=== PATIENT | male | born 1950 | race Caucasian/White ===

== ENCOUNTER 2017-08-10 15:19 | Inpatient (IN) ==
--- NOTE | 2017-08-10 15:40 | Emergency Department Note ---
Disposition Clinical Impression: New onset a-fib, Urinary retention Disposition: Admitted As Inpatient Condition: Fair General Adult HPI - General Chief complaint: ED Arrhythmia/Palpitations Stated complaint: "abnormal EKG", BERNADETTE Time Seen by Provider: 08/10/17 15:33 Source: patient, family Limitations: no limitations - History of Present Illness Pain Scale: 4 - Related Data Home Medications Medication Instructions Recorded Confirmed predniSONE [PredniSONE] See Taper PO DAILY 08/10/17 08/10/17 Previous Rx's Medication Instructions Recorded Acetaminophen [Tylenol] 650 mg PO Q6HR PRN tablet 08/07/17 Aspirin Enteric Coated [Aspirin EC] 81 mg PO DAILY tablet. 08/07/17 Atorvastatin [Lipitor] 40 mg PO HS #30 tablet 08/07/17 Budesonide/Formoterol 160/4.5 2 puff IH BIDR #1 inhaler 08/07/17 [Symbicort 160/4.5] Ferrous Sulfate 325 mg PO DAILY@0800 #30 tablet 08/07/17 Furosemide [Lasix] 20 mg PO DAILY #10 tablet 08/07/17 Ipratropium/Albuterol Neb [Duoneb] 3 ml IH [id number] 30 Days #150 inhsol 08/07/17 Levofloxacin [Levaquin] 750 mg PO DAILY #5 tablet 08/07/17 Lisinopril [Zestril] 5 mg PO DAILY #30 tablet 08/07/17 Melatonin 6 mg PO HS PRN #30 tablet 08/07/17 Metoprolol XL (24 HR) Succ [Toprol 25 mg PO DAILY #30 tab.er.24h 08/07/17 Xl] Allergies Allergy/AdvReac Type Severity Reaction Status Date / Time No Known Allergies Allergy Verified 07/29/17 12:54 Past Medical History - Past Medical History Medical history: Reports: CHF, COPD, hyperlipidemia, other Surgical history: Reports: other (lymph node biopsy 2004) Psychiatric history: Reports: no psych history - Social History Smoking Status: Former smoker Smokeless Tobacco Status: No Alcohol use: Reports: rarely Drug use: Reports: none Physical Exam - General Limitations: no limitations General appearance: alert Course Vital Signs Temperature 97.5 F L 08/10/17 15:22 Pulse Rate 125 08/10/17 15:22 Respiratory Rate 20 08/10/17 15:22 Blood Pressure 122/61 08/10/17 15:22 O2 Sat by Pulse Oximetry 95 08/10/17 15:22 Temperature 97.4 F L 08/10/17 23:56 Pulse Rate 102 08/10/17 23:56 Respiratory Rate 14 08/11/17 00:03 Blood Pressure 112/92 08/10/17 23:56 O2 Sat by Pulse Oximetry 94 08/11/17 00:03 Oxygen Delivery Oxygen Delivery Nasal Cannula Medical Decision Making - Lab Data Result diagrams: 08/10/17 15:42 08/10/17 15:42 Lab Results 08/10/17 08/10/17 08/10/17 Range/Units 15:42 15:42 15:42 WBC 12.6 H (4.3-11.1) K/mcL RBC 5.72 H (4.19-5.50) M/mcL Hgb 14.2 D (12.9-16.9) g/dL Hct 44.3 (37.5-50.1) % MCV 77.4 L (83.0-100.0) fL MCH 24.8 L (28.0-33.3) pg MCHC 32.1 (31.6-35.5) g/dL RDW 17.2 H (11.5-14.5) % Plt Count 163 (140-400) K/mcL MPV 10.2 (9.4-12.4) fL Immature Gran % 0.9 (0-4) % Seg Neutrophils % 92.4 % Lymphocytes % 1.7 % Monocytes % 4.7 % Eosinophils % 0.1 % Basophils % 0.2 % Neutrophils # 11.7 H (1.6-8.9) K/mcL Lymphocytes # 0.2 L (0.6-4.6) K/mcL Monocytes # 0.6 (0.0-1.3) K/mcL Eosinophils # 0.0 (0.0-0.6) K/mcL Basophils # 0.0 (0.0-0.2) K/mcL PT 11.1 (9.4-12.1) Seconds INR 1.0 APTT 22.5 L (26.0-36.0) Seconds Sodium 130 L (136-145) mEq/L Potassium 5.1 (3.5-5.1) mEq/L Chloride 96 L (98-107) mEq/L Carbon Dioxide 27 (23-29) mEq/L BUN 48 H (8-23) mg/dL Creatinine 1.12 (0.70-1.30) mg/dL Est GFR ( Amer) > 60 (> 60) Est GFR (Non-Af Amer) > 60 (> 60) BUN/Creatinine Ratio 43 H (6-26) Glucose 111 H (70-105) mg/dL Calculated Osmolality 283 (280-300) Calcium 8.8 (8.6-10.3) mg/dL Magnesium 2.2 (1.6-2.6) mg/dL Troponin I (< 0.04) ng/mL B-Natriuretic Peptide (Less than 100) pg/mL TSH 1.539 (0.340-5.600) mcIU/mL 08/10/17 08/10/17 08/10/17 Range/Units 15:42 15:42 18:39 WBC (4.3-11.1) K/mcL RBC (4.19-5.50) M/mcL Hgb (12.9-16.9) g/dL Hct (37.5-50.1) % MCV (83.0-100.0) fL MCH (28.0-33.3) pg MCHC (31.6-35.5) g/dL RDW (11.5-14.5) % Plt Count (140-400) K/mcL MPV (9.4-12.4) fL Immature Gran % (0-4) % Seg Neutrophils % % Lymphocytes % % Monocytes % % Eosinophils % % Basophils % % Neutrophils # (1.6-8.9) K/mcL Lymphocytes # (0.6-4.6) K/mcL Monocytes # (0.0-1.3) K/mcL Eosinophils # (0.0-0.6) K/mcL Basophils # (0.0-0.2) K/mcL PT (9.4-12.1) Seconds INR APTT (26.0-36.0) Seconds Sodium (136-145) mEq/L Potassium (3.5-5.1) mEq/L Chloride (98-107) mEq/L Carbon Dioxide (23-29) mEq/L BUN (8-23) mg/dL Creatinine (0.70-1.30) mg/dL Est GFR ( Amer) (> 60) Est GFR (Non-Af Amer) (> 60) BUN/Creatinine Ratio (6-26) Glucose (70-105) mg/dL Calculated Osmolality (280-300) Calcium (8.6-10.3) mg/dL Magnesium (1.6-2.6) mg/dL Troponin I 0.05 H* 0.04 H* (< 0.04) ng/mL B-Natriuretic Peptide 964 H (Less than 100) pg/mL TSH (0.340-5.600) mcIU/mL Critical Care Time Critical Care Time: Yes Total Critical Care Time: 30 Attestation: The high probability of a clinically significant, sudden or life threatening deterioration of the [] system(s) required my full and direct attention, intervention and personal management. The aggregate critical care time was [] minutes. This time is in addition to time spent performing reported procedures but includes the following: [] Data Review and interpretation [] Patient assessment and monitoring of vital signs [] Documentation [] Medication orders and management Attestation Statement - Attestation Attestation: I examined this patient and my medical decision-making was reviewed with the Resident Physician. I agree with the documented findings, disposition and treatment plan as described except to the extent set forth below. Face to face time provided Patient arrives with a narrow complex irregularly irregular tachycardia. He has no previous history of atrial fibrillation. Takes aspirin. Was recently admitted for COPD exacerbation. Past peripheral edema on exam. ECG reviewed by me.
[2017-08-10 16:16] LABS: Basophils % 0.2 %; Eosinophils % 0.1 %; Hematocrit 44.3 % (37.5-50.1); Immature Granulocytes % 0.9 % (0-4); Lymphocytes # 0.2 K/mcL (0.6-4.6); Lymphocytes % 1.7 %; Mean Corpuscular HGB Conc 32.1 g/dL (31.6-35.5); Mean Corpuscular Hemoglobin 24.8 pg (28.0-33.3); Mean Corpuscular Volume 77.4 fL (83.0-100.0); Mean Platelet Volume 10.2 fL (9.4-12.4); Monocytes # 0.6 K/mcL (0.0-1.3); Monocytes % 4.7 %; Neutrophils # 11.7 K/mcL (1.6-8.9); Platelet Count 163 K/mcL (140-400); Red Blood Count 5.72 M/mcL (4.19-5.50); Red Cell Distribution Width 17.2 % (11.5-14.5); Segmented Neutrophils % 92.4 %
[2017-08-10 16:20] LABS: Hemoglobin 14.2 g/dL (12.9-16.9)
[2017-08-10 16:22] LABS: Prothrombin Time 11.1 Seconds (9.4-12.1)
[2017-08-10 16:25] LABS: Activated Partial Thrombo Time 22.5 Seconds (26.0-36.0)
[2017-08-10 16:33] LABS: Thyroid Stimulating Hormone 1.539 mcIU/mL (0.340-5.600)
[2017-08-10 17:23] LABS: BUN/Creatinine Ratio 43 (6-26); Blood Urea Nitrogen 48 mg/dL (8-23); Calcium 8.8 mg/dL (8.6-10.3); Carbon Dioxide 27 mEq/L (23-29); Chloride 96 mEq/L (98-107); Glucose 111 mg/dL (70-105); Magnesium 2.2 mg/dL (1.6-2.6); Osmolality,Calculated 283 (280-300); Potassium 5.1 mEq/L (3.5-5.1); Sodium 130 mEq/L (136-145); eGFR For African Americans > 60 (> 60); eGFR For Non-African Americans > 60 (> 60)
--- NOTE | 2017-08-10 17:37 | Emergency Department Note ---
Disposition Clinical Impression: New onset a-fib, Urinary retention Disposition: Admitted As Inpatient Condition: Fair Referrals: Jenn Luna MD [Primary Care Provider] - Forms: ED Satisfaction Letter Time of Disposition: 17:56 General Adult HPI - General Chief complaint: ED Arrhythmia/Palpitations Stated complaint: "abnormal EKG", BERNADETTE Time Seen by Provider: 08/10/17 15:33 Source: patient, family Mode of arrival: ambulatory Limitations: no limitations Nursing Notes Reviewed: Yes Vital Signs Reviewed: Yes - History of Present Illness HPI Narrative: 61 yo male with known past medical history of COPD presenting to the emergency department with chief complaint of abnormal EKG. Patient was discharged from the hospital 2 days ago for COPD exacerbation. He was started on Levaquin as an outpatient. Today he went to his primary care physician for routine hospital follow-up. He was complaining of chest pain and retaining fluid that started last evening. When they completed an EKG they noticed it was atrial fibrillation and sent him to the emergency department for further workup. Patient has not no known history of palpitations or atrial fibrillation. He states he started feeling mild chest pain last evening. He also noticed for the past week increased food retention. He was started on 20 mg of Lasix at discharge but has not been urinating often. He states he has only urinated twice today. Patient denies any pain at this time. He does state when he lays down his shortness of breath worsens. Denies any fever at home. Pain Scale: 4 - Related Data Home Medications Medication Instructions Recorded Confirmed predniSONE [PredniSONE] See Taper PO DAILY 08/10/17 08/10/17 Previous Rx's Medication Instructions Recorded Acetaminophen [Tylenol] 650 mg PO Q6HR PRN tablet 08/07/17 Aspirin Enteric Coated [Aspirin EC] 81 mg PO DAILY tablet. 08/07/17 Atorvastatin [Lipitor] 40 mg PO HS #30 tablet 08/07/17 Budesonide/Formoterol 160/4.5 2 puff IH BIDR #1 inhaler 08/07/17 [Symbicort 160/4.5] Ferrous Sulfate 325 mg PO DAILY@0800 #30 tablet 08/07/17 Furosemide [Lasix] 20 mg PO DAILY #10 tablet 08/07/17 Ipratropium/Albuterol Neb [Duoneb] 3 ml IH [id number] 30 Days #150 inhsol 08/07/17 Levofloxacin [Levaquin] 750 mg PO DAILY #5 tablet 08/07/17 Lisinopril [Zestril] 5 mg PO DAILY #30 tablet 08/07/17 Melatonin 6 mg PO HS PRN #30 tablet 08/07/17 Metoprolol XL (24 HR) Succ [Toprol 25 mg PO DAILY #30 tab.er.24h 08/07/17 Xl] Allergies Allergy/AdvReac Type Severity Reaction Status Date / Time No Known Allergies Allergy Verified 07/29/17 12:54 All systems ED: reviewed and negative except as stated. Constitutional: Reports: weight change (increased) Cardiovascular: Reports: chest pain, palpitations, dyspnea on exertion Respiratory: Reports: dyspnea Past Medical History - Past Medical History Attestation: Yes The following information was validated with the patient. Medical history: Reports: CHF, COPD, hyperlipidemia, other Surgical history: Reports: other (lymph node biopsy 2004) Psychiatric history: Reports: no psych history - Social History Smoking Status: Former smoker Smokeless Tobacco Status: No Alcohol use: Reports: rarely Drug use: Reports: none Physical Exam - General Limitations: no limitations General appearance: alert, in no apparent distress - Head Head exam: atraumatic, normocephalic, normal inspection - Eye Eye exam: Present: normal appearance. Absent: scleral icterus, conjunctival injection - Neck Neck exam: Present: normal inspection, full ROM. Absent: tenderness, meningismus - Chest Chest inspection: Present: normal inspection, symmetric chest wall rise. Absent : tenderness, rash - Respiratory Respiratory exam: Present: other (Decreased breath sounds bilaterally) - Cardiovascular Cardiovascular exam: Present: tachycardia, irregular rhythm - Abdominal Exam Abdominal exam: Present: soft, Non-Tender. Absent: distention, guarding, rebound - Extremities Exam Extremities exam: Present: full ROM, other (Lower extremity 1+ pitting edema) - Neurological Exam Neurological exam: Present: alert, oriented X3 - Psychiatric Psychiatric exam: Present: normal affect, normal mood - Skin Skin exam: Present: warm, dry Course Course Narrative: 67-year-old male with known history of COPD presenting to the emergency department with chief complaint of new onset atrial fibrillation. EKG here does show atrial fibrillation. Also retaining fluid in the lower extremities. Concern for CHF. Patient has no known history of CHF. Patient is alert and oriented 3 in the room with tachycardia but otherwise stable vital signs. We will perform basic laboratory workup including EKG and chest x-ray. We will also provide the patient with a bolus and drip of Cardizem. Patient agrees to this plan. We will plan to admit the patient for new onset atrial fibrillation. - Reevaluation(s) Reevaluation #1: Cardizem bolus given to patient. Became mildly hypotensive with systolic in the upper 80s. We will hold the drip at this time as he is rate controlled. Patient denies any chest pain shortness of breath or other symptoms at this time. He is alert and oriented 3 and room stable vital signs at this time. Awaiting laboratory analysis but plan to admit patient for new onset atrial fibrillation. He agrees to this plan. Reevaluation #2: Bedside ultrasound showed urinary retention of approximately [address] We will place a Miles and the patient at this time and provide him with 20 mg of IV Lasix. I spoke with the accepting hospitalist Pineda Aguilera is a 6 at the patient at this time. He would like us to consult cardiology. I spoke with Dr. Edwards with cardiology. He is aware of the case. He is alert and oriented 3 and room stable vital signs at this time. Vital Signs Temperature 97.5 F L 08/10/17 15:22 Pulse Rate 125 08/10/17 15:22 Respiratory Rate 20 08/10/17 15:22 Blood Pressure 122/61 08/10/17 15:22 O2 Sat by Pulse Oximetry 95 08/10/17 15:22 Temperature 97.5 F L 08/10/17 15:22 Pulse Rate 86 08/10/17 17:37 Respiratory Rate 18 08/10/17 17:37 Blood Pressure 126/103 08/10/17 17:37 O2 Sat by Pulse Oximetry 96 08/10/17 17:37 Oxygen Delivery Oxygen Delivery Nasal Cannula Medical Decision Making - Lab Data Result diagrams: 08/10/17 15:42 08/10/17 15:42 Lab Results 08/10/17 08/10/17 08/10/17 Range/Units 15:42 15:42 15:42 WBC 12.6 H (4.3-11.1) K/mcL RBC 5.72 H (4.19-5.50) M/mcL Hgb 14.2 D (12.9-16.9) g/dL Hct 44.3 (37.5-50.1) % MCV 77.4 L (83.0-100.0) fL MCH 24.8 L (28.0-33.3) pg MCHC 32.1 (31.6-35.5) g/dL RDW 17.2 H (11.5-14.5) % Plt Count 163 (140-400) K/mcL MPV 10.2 (9.4-12.4) fL Immature Gran % 0.9 (0-4) % Seg Neutrophils % 92.4 % Lymphocytes % 1.7 % Monocytes % 4.7 % Eosinophils % 0.1 % Basophils % 0.2 % Neutrophils # 11.7 H (1.6-8.9) K/mcL Lymphocytes # 0.2 L (0.6-4.6) K/mcL Monocytes # 0.6 (0.0-1.3) K/mcL Eosinophils # 0.0 (0.0-0.6) K/mcL Basophils # 0.0 (0.0-0.2) K/mcL PT 11.1 (9.4-12.1) Seconds INR 1.0 APTT 22.5 L (26.0-36.0) Seconds Sodium 130 L (136-145) mEq/L Potassium 5.1 (3.5-5.1) mEq/L Chloride 96 L (98-107) mEq/L Carbon Dioxide 27 (23-29) mEq/L BUN 48 H (8-23) mg/dL Creatinine 1.12 (0.70-1.30) mg/dL Est GFR ( Amer) > 60 (> 60) Est GFR (Non-Af Amer) > 60 (> 60) BUN/Creatinine Ratio 43 H (6-26) Glucose 111 H (70-105) mg/dL Calculated Osmolality 283 (280-300) Calcium 8.8 (8.6-10.3) mg/dL Magnesium 2.2 (1.6-2.6) mg/dL Troponin I (< 0.04) ng/mL TSH 1.539 (0.340-5.600) mcIU/mL 08/10/17 Range/Units 15:42 WBC (4.3-11.1) K/mcL RBC (4.19-5.50) M/mcL Hgb (12.9-16.9) g/dL Hct (37.5-50.1) % MCV (83.0-100.0) fL MCH (28.0-33.3) pg MCHC (31.6-35.5) g/dL RDW (11.5-14.5) % Plt Count (140-400) K/mcL MPV (9.4-12.4) fL Immature Gran % (0-4) % Seg Neutrophils % % Lymphocytes % % Monocytes % % Eosinophils % % Basophils % % Neutrophils # (1.6-8.9) K/mcL Lymphocytes # (0.6-4.6) K/mcL Monocytes # (0.0-1.3) K/mcL Eosinophils # (0.0-0.6) K/mcL Basophils # (0.0-0.2) K/mcL PT (9.4-12.1) Seconds INR APTT (26.0-36.0) Seconds Sodium (136-145) mEq/L Potassium (3.5-5.1) mEq/L Chloride (98-107) mEq/L Carbon Dioxide (23-29) mEq/L BUN (8-23) mg/dL Creatinine (0.70-1.30) mg/dL Est GFR ( Amer) (> 60) Est GFR (Non-Af Amer) (> 60) BUN/Creatinine Ratio (6-26) Glucose (70-105) mg/dL Calculated Osmolality (280-300) Calcium (8.6-10.3) mg/dL Magnesium (1.6-2.6) mg/dL Troponin I 0.05 H* (< 0.04) ng/mL TSH (0.340-5.600) mcIU/mL - EKG Data EKG #1 EKG attestation: Yes I reviewed and interpreted this EKG. EKG results narrative: Atrial fibrillation with RVR. 121 bpm. Right axis deviation. QRS 77, QTC 361. No signs of acute ST segment elevation or ischemia noted.
[2017-08-10] MEDS ORDERED: Furosemide 20 MG/2 ML VIAL IVP ONE (17:41)
[2017-08-10] MEDS ORDERED: *HR* FentaNYL (PF) 100 MCG/2 ML VIAL IVP ONE (17:51)
--- NOTE | 2017-08-10 18:22 | Internal Med History&Physical ---
Date of Encounter: 08/10/17 Time of Encounter: 18:18 Assessment and Plan (1) New onset a-fib Current visit: Yes Status: Acute New onset atrial fibrillation consult cardiology (2) Urinary retention Current visit: Yes Status: Acute Urinary retention Miles is placed may need urology evaluation (3) COPD exacerbation Current visit: No Status: Acute COPD with no active wheezing has decreased breath sound bilaterally (4) Cardiomyopathy Current visit: No Status: Acute , cardioMyopathy with decompensation has congestive heart failure leg edema Qualifiers: Cardiomyopathy type: unspecified Qualified Code(s): I42.9 - Cardiomyopathy , unspecified (5) Elevated troponin I level Current visit: No Status: Acute Elevated troponin had a recent nuclear stress test done last week which showed no ischemia with EF 45% (6) Tobacco abuse Current visit: No Status: Chronic (7) Anemia Current visit: No Status: Chronic Chronic hemoglobin is normal at present Qualifiers: Anemia type: iron deficiency Iron deficiency anemia type: unspecified iron deficiency Qualified Code(s): D50.9 - Iron deficiency anemia, unspecified (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 Lowry is a 67 year old male Patient with history of chronic iron deficiency anemia, COPD, chronic silicosis , sarcoidosis, CMP EF 45%, smoking history, patient was recently admitted and discharged 2 days ago . Saw his primary physician today has some complaint of chest pain and fluid retention EKG done in the office showed atrial fibrillation with RVR patient was then sent to the emergency room. Emergency room atrial fib started on Cardizem drip. Patient is now heart rate in the 90s chest pain resolved. Also has some leg edema. Urinary retention ultrasound of the bladder shows 300 mL Miles is placed patient be admitted I will consult cardiology has mildly elevated troponin. Of note patient had a recent nuclear stress test August 04 last week which showed EF 45% with negative ischemia Past Med Surg Social Fam HX - Past Medical History Medical history: CHF, COPD, hyperlipidemia, other Psychiatric history: no psych history - Past Surgical History Surgical History: other (lymph node biopsy 2004) - Social History Smoking Status: Former smoker Smokeless Tobacco Status: No Alcohol use: rarely Drug use: none Internal Medicine - H&P: Meds Acetaminophen [Tylenol] 650 mg PO Q6HR PRN tablet 08/07/17 [Rx] Aspirin Enteric Coated [Aspirin EC] 81 mg PO DAILY tablet. 08/07/17 [Rx] Atorvastatin [Lipitor] 40 mg PO HS #30 tablet 08/07/17 [Rx] Budesonide/Formoterol 160/4.5 [Symbicort 160/4.5] 2 puff IH BIDR #1 inhaler [Rx] Ferrous Sulfate 325 mg PO DAILY@0800 #30 tablet 08/07/17 [Rx] Furosemide [Lasix] 20 mg PO DAILY #10 tablet 08/07/17 [Rx] Ipratropium/Albuterol Neb [Duoneb] 3 ml IH [id number] 30 Days #150 inhsol 08/07/17 [Rx] Levofloxacin [Levaquin] 750 mg PO DAILY #5 tablet 08/07/17 [Rx] Lisinopril [Zestril] 5 mg PO DAILY #30 tablet 08/07/17 [Rx] Melatonin 6 mg PO HS PRN #30 tablet 08/07/17 [Rx] Metoprolol XL (24 HR) Succ [Toprol Xl] 25 mg PO DAILY #30 tab.er.24h 08/07/17 [ Rx] predniSONE [PredniSONE] See Taper PO DAILY 08/10/17 [History] 3 Allergy/AdvReac Type Severity Reaction Status Date / Time No Known Allergies Allergy Verified 07/29/17 12:54 All Systems PM: A 10-system review of systems was performed and is negative for pertinent findings except as documented above in the HPI. - Constitutional Constitutional: fatigue, lethargy - EENT Eyes: no change in vision, no discharge, no pain, no photophobia Ears: no ear discharge, no ear pain, no tinnitus Nose, mouth and throat: no dysphagia, no nasal discharge, no neck pain, no sore throat - Cardiovascular Cardiovascular ROS IM: chest pain, dyspnea, dyspnea on exertion - Respiratory Respiratory: dyspnea, dyspnea on exertion - Gastrointestinal Gastrointestinal: no abdominal pain, no diarrhea, no hematemesis, no hematochezia, no melena, no nausea, no vomiting - Musculoskeletal Musculoskeletal ROS IM: no numbness, no tingling - Integumentary Integumentary IM: no rash, no unusual bruising - Constitutional Vitals: Temp Pulse Resp BP Pulse Ox 97.5 F L 86 18 126/103 96 08/10/17 15:22 08/10/17 17:37 08/10/17 17:37 08/10/17 17:37 08/10/17 17:37 General appearance: Present: mild distress - Eye Eye exam: Present: PERRL, conjuntiva pink, sclera anicteric Pupils: Present: PERRL - Neck Neck exam general surgery: Present: supple, trachea midline. Absent: lymphadenopathy - Respiratory Respiratory exam: Present: prolonged expiratory phase, rhonchi - Cardiovascular Cardiovascular exam: Present: irregular rhythm, +S1, +S2, systolic murmur - GI/Abdominal GI/Abdominal exam: Present: normal bowel sounds, soft, no peritoneal signs. Absent: distended, tenderness - Extremities Exam Extremities exam: Present: pedal edema Internal Med - H&P Results - Labs CBC & Chem 7: 08/10/17 15:42 08/10/17 15:42 Labs: Short CBC 08/10/17 Range/Units 15:42 WBC 12.6 H (4.3-11.1) K/mcL Hgb 14.2 D (12.9-16.9) g/dL Hct 44.3 (37.5-50.1) % Plt Count 163 (140-400) K/mcL Neutrophils # 11.7 H (1.6-8.9) K/mcL BMP 08/10/17 15:42 Sodium 130 L Potassium 5.1 Chloride 96 L Carbon Dioxide 27 BUN 48 H Creatinine 1.12 Glucose 111 H Calcium 8.8 Cardiac Enzymes 08/10/17 Range/Units 15:42 Troponin I 0.05 H* (< 0.04) ng/mL - Impressions ITS Impressions Chest X-Ray 08/10/17 15:38 IMPRESSION: Possible new consolidation in the right lower lobe. RECOMMENDATION: Consider dedicated PA and lateral chest radiographs. D/ / 08/10/2017 17:17:43 Ted Ellington MD / liam Interpreting Provider: Ted Ellington MD
[2017-08-10] MEDS ORDERED: Naloxone 0.4 MG/ML INJ IVP PRN (18:27)
[2017-08-10] MEDS ORDERED: traMADol 50 MG TABLET PO PRN (18:27)
[2017-08-10] MEDS ORDERED: Acetaminophen 325 MG TABLET PO PRN (18:30)
[2017-08-10] MEDS ORDERED: *HR* Digoxin 0.5 MG/2 ML AMPUL IVP ONE (18:33)
[2017-08-10] MEDS: Ipratropium/Albuterol Neb 3 ML IH SCH (21:22)
[2017-08-10] MEDS: Budesonide/Formoterol 160/4.5 MDI IH SCH (21:22)
[2017-08-10] MEDS: Furosemide 40 MG/4 ML VIAL IVP SCH (23:30)
[2017-08-10] MEDS: Apixaban 5 MG TABLET PO SCH (23:30)
[2017-08-10] MEDS: Melatonin 3 MG TABLET PO PRN (23:30)
[2017-08-11] MEDS: Ipratropium/Albuterol Neb 3 ML IH SCH ×7 (00:01→23:25)
[2017-08-11 00:48] LABS: Basophils % 0.1 %; Hematocrit 43.3 % (37.5-50.1); Hemoglobin 13.6 g/dL (12.9-16.9); Immature Granulocytes % 0.9 % (0-4); Lymphocytes # 0.3 K/mcL (0.6-4.6); Lymphocytes % 2.5 %; Mean Corpuscular HGB Conc 31.4 g/dL (31.6-35.5); Mean Corpuscular Hemoglobin 24.5 pg (28.0-33.3); Mean Corpuscular Volume 78.2 fL (83.0-100.0); Mean Platelet Volume 9.9 fL (9.4-12.4); Monocytes # 1.3 K/mcL (0.0-1.3); Monocytes % 10.3 %; Neutrophils # 10.5 K/mcL (1.6-8.9); Platelet Count 173 K/mcL (140-400); Red Blood Count 5.54 M/mcL (4.19-5.50); Red Cell Distribution Width 16.2 % (11.5-14.5); Segmented Neutrophils % 86.2 %
[2017-08-11 01:17] LABS: Albumin/Globulin Ratio 1.4 (1.1-2.2); Bilirubin,Total 0.8 mg/dL (0.3-1.0); Calcium 8.7 mg/dL (8.6-10.3); Globulin 2.1 g/dL (2.4-3.5); Magnesium 2.2 mg/dL (1.6-2.6); Potassium 4.7 mEq/L (3.5-5.1); Total Protein 5.1 g/dL (6.4-8.9)
[2017-08-11] MEDS ORDERED: *HR* Enoxaparin 40 MG/0.4 ML SYRINGE SQ SCH (06:00)
[2017-08-11] MEDS ORDERED: *HR* Digoxin 0.5 MG/2 ML AMPUL IVP ONE ×2 (07:46→17:46)
--- NOTE | 2017-08-11 07:49 | Internal Med Progress Note ---
Date of Encounter: 08/11/17 Time of Encounter: 07:47 - Assessment and plan (1) New onset a-fib Current Visit: Yes Status: Acute Assessment and plan: new onset atrial fib cardiology consult pending will give additional dose of digoxin 0.25 mg iv now (2) Urinary retention Current Visit: Yes Status: Acute Assessment and plan: has diaz in place urology consult pending (3) COPD exacerbation Current Visit: No Status: Acute Assessment and plan: no active wheezing continue current RX (4) Cardiomyopathy Current Visit: No Status: Acute Assessment and plan: with decompensation due to atrial fib continue iv lasix Qualifiers: Cardiomyopathy type: unspecified Qualified Code(s): I42.9 - Cardiomyopathy , unspecified (5) Elevated troponin I level Current Visit: No Status: Acute Assessment and plan: not consistent with NSTEMI level is flat (6) Tobacco abuse Current Visit: No Status: Chronic Assessment and plan: chronic (7) Anemia Current Visit: No Status: Chronic Qualifiers: Anemia type: iron deficiency Iron deficiency anemia type: unspecified iron deficiency Qualified Code(s): D50.9 - Iron deficiency anemia, unspecified (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 Assessment and plan: chronic (9) Sarcoidosis Current Visit: No Status: Chronic Assessment and plan: chronic not on steroids - Subjective Interval history: Patient admitted with new onset atrial fib rate is now better controlled no chest pain - Constitutional Vitals: Temp Pulse Resp BP Pulse Ox 98.1 F 96 15 102/74 94 08/11/17 06:55 08/11/17 06:55 08/11/17 06:55 08/11/17 06:55 08/11/17 06:55 General appearance: Present: mild distress - Eye Eye exam: Present: PERRL, conjuntiva pink, sclera anicteric Pupils: Present: PERRL - Neck Neck exam general surgery: Present: supple, trachea midline. Absent: lymphadenopathy - Respiratory Respiratory exam: Present: prolonged expiratory phase, rhonchi - Cardiovascular Cardiovascular exam: Present: irregular rhythm, systolic murmur - GI/Abdominal GI/Abdominal exam: Present: normal bowel sounds, soft, no peritoneal signs. Absent: distended, tenderness Internal Medicine: Result - Labs CBC & Chem 7: 08/11/17 00:31 08/11/17 00:31 Labs: Short CBC 08/11/17 Range/Units 00:31 WBC 12.2 H (4.3-11.1) K/mcL Hgb 13.6 (12.9-16.9) g/dL Hct 43.3 (37.5-50.1) % Plt Count 173 (140-400) K/mcL Neutrophils # 10.5 H (1.6-8.9) K/mcL BMP 08/11/17 00:31 Sodium 131 L Potassium 4.7 Chloride 92 L Carbon Dioxide 34 H BUN 55 H Creatinine 1.46 H Glucose 128 H Calcium 8.7 Cardiac Enzymes 08/11/17 Range/Units 00:31 Troponin I 0.05 H* (< 0.04) ng/mL Liver Function 08/11/17 Range/Units 00:31 Total Bilirubin 0.8 (0.3-1.0) mg/dL AST 21 (13-39) Units/L ALT 42 (7-52) Units/L Alkaline Phosphatase 45 (34-104) Units/L Albumin 3.0 L (3.5-5.7) g/dL - ABG Interpretation ABG results: PT/INR, D-dimer PT 11.1 Seconds (9.4-12.1) 08/10/17 15:42 Consult Discharge Plan - Plan Referrals: Jenn Luna MD [Primary Care Provider] -
[2017-08-11] MEDS: Apixaban 5 MG TABLET PO SCH ×2 (08:24→20:06)
[2017-08-11] MEDS: Furosemide 40 MG/4 ML VIAL IVP SCH ×2 (08:24→20:05)
[2017-08-11] MEDS: Aspirin Enteric Coated 81 MG Tablet PO SCH (08:24)
[2017-08-11] MEDS: levoFLOXacin 750 MG TABLET PO SCH (08:24)
--- NOTE | 2017-08-11 09:21 | Cardiology Consult Note ---
<Carlos Pierre - Last Filed: 08/11/17 09:19> Date of Encounter: 08/11/17 Time of Encounter: 09:19 Assessment and Plan (1) New onset a-fib Current Visit: Yes Status: Acute New onset afib. No previous history of afib. Patient was discharged with holter monitor last visit due to high risk for arrhythmias in the setting of sarcoidosis. Holter results pending. Continue toprol XL and increase as tolerated. HR 80-100 this morning. Started on eliquis by primary team. Lovenox stopped. (2) Acute on chronic systolic CHF (congestive heart failure) Current Visit: Yes Status: Acute Recently found to have mildly reduced EF. TTE 08/02/17- LVEF 45%. Mild LV systolic dysfunction. Possible regional variations although image quality is not optimal. Indeterminate diastolic function. Normal right ventricular structure and function. Aortic valve leaflet morphology not well visualized. Possibly a congenitally abnormal valve. Moderate aortic regurgitation. Mild mitral regurgitation. Mild-moderate tricuspid regurgitation. Moderate pulmonary hypertension. Ascending aorta not well visualized. No prior echo for comparison. Known sarcoidosis. Out-pt MRI recommended at last visit. Stress test completed at last visit for ischemic evaluation for new CMP. Stress test was negative for ischemia. Fluid overload on exam. Agree with IV lasix. Strict I&O and daily weights. CHF education. Continue toprol XL and zestril. CXR shows new RLL lung consolidation. Consider PNA- will defer to hospitlist. (3) Acute exacerbation of chronic obstructive airways disease Current Visit: No Status: Acute Hospitalist following. (4) Elevated troponin I level Current Visit: No Status: Acute Mild troponin elevation likely secondary to demand ischemia from atrial fibrillation with RVR and acute CHF. Discussion w patient/family: The assessment and plan as outlined above was discussed with the patient and/or family members who expressed understanding and agreement. All questions were answered. Thank you for involving us in the care of your patient. Please call with any questions. History of Present Illness Consult date: 08/11/17 Requesting physician: Denys Ford Consult reason: New onset afib Chief complaint: Increasing SOB History of present illness: Mr. Lowry is a 67 year old male with relevant past medical history of recently diagnosed cardiomyopathy, COPD, tobacco abuse, sarcoidosis, O2 dependent at home. He presents with increasing SOB and elevated heart rates. He was recently seen and discharged 08/07/17 after being treated for acute CHF and COPD. He is found to have new onset atrial fibrillation with RVR in the setting of COPD exacerbation. He was given IV digoxin x1 and cardizem bolus and started on cardizem gtt. He was also started on eliquis by primary team for AC. Cardizem gtt started. He states that he did not feel better after leaving the hospital last week. He developed increasing BLE edema. Past Med Surg Social Fam HX - Past Medical History Medical history: CHF, COPD, hyperlipidemia, other Psychiatric history: no psych history - Past Surgical History Surgical History: other (lymph node biopsy 2004) - Social History Smoking Status: Former smoker Smokeless Tobacco Status: No Alcohol use: rarely Drug use: none Medications and Allergies Acetaminophen [Tylenol] 650 mg PO Q6HR PRN tablet 08/07/17 [Rx] Aspirin Enteric Coated [Aspirin EC] 81 mg PO DAILY tablet. 08/07/17 [Rx] Atorvastatin [Lipitor] 40 mg PO HS #30 tablet 08/07/17 [Rx] Budesonide/Formoterol 160/4.5 [Symbicort 160/4.5] 2 puff IH BIDR #1 inhaler [Rx] Ferrous Sulfate 325 mg PO DAILY@0800 #30 tablet 08/07/17 [Rx] Furosemide [Lasix] 20 mg PO DAILY #10 tablet 08/07/17 [Rx] Ipratropium/Albuterol Neb [Duoneb] 3 ml IH [id number] 30 Days #150 inhsol 08/07/17 [Rx] Levofloxacin [Levaquin] 750 mg PO DAILY #5 tablet 08/07/17 [Rx] Lisinopril [Zestril] 5 mg PO DAILY #30 tablet 08/07/17 [Rx] Melatonin 6 mg PO HS PRN #30 tablet 08/07/17 [Rx] Metoprolol XL (24 HR) Succ [Toprol Xl] 25 mg PO DAILY #30 tab.er.24h 08/07/17 [ Rx] predniSONE [PredniSONE] See Taper PO DAILY 08/10/17 [History] 3 Allergy/AdvReac Type Severity Reaction Status Date / Time No Known Allergies Allergy Verified 07/29/17 12:54 All Systems Review: The remainder of the systems were reviewed and are negative Physical Examination Vital Signs, Last 4 Hours Temp Pulse Resp BP Pulse Ox 08/11/17 06:55 98.1 F 96 15 102/74 94 08/11/17 05:33 98.2 F 110 18 112/75 95 General: Conversant, No Apparent Distress HEENT: Atraumatic, Normocephaly, Mucus Membranes Moist Neck: No JVD, Normal carotid pulses Cardiac: Other (irregular) Lungs: Normal Breath Sounds, No Wheeze, Rales, Rhonchi Neuro: Alert and responsive, No focal deficits noted Abdomen: Soft, Non-Tender Skin: No rashes noted on visualized skin Musculoskeletal: No Chest Wall Tenderness Extremities: No Clubbing, No Cyanosis, Normal Pulses, Other (2+ BLE edema) Results 08/11/17 00:31 08/11/17 00:31 Lab Results 08/11/17 08/11/17 08/11/17 00:31 00:31 00:31 WBC 12.2 H Hgb 13.6 Hct 43.3 Plt Count 173 Sodium 131 L Potassium 4.7 Chloride 92 L Carbon Dioxide 34 H BUN 55 H Creatinine 1.46 H Glucose 128 H Calcium 8.7 Magnesium 2.2 Total Bilirubin 0.8 AST 21 ALT 42 Alkaline Phosphatase 45 Troponin I 0.05 H* B-Natriuretic Peptide 08/11/17 08/11/17 00:31 06:23 WBC Hgb Hct Plt Count Sodium Potassium Chloride Carbon Dioxide BUN Creatinine Glucose Calcium Magnesium Total Bilirubin AST ALT Alkaline Phosphatase Troponin I 0.05 H* B-Natriuretic Peptide 905 H - Imaging and Cardiology Stress Test: report reviewed Echo: report reviewed Consult Discharge Plan - Plan Referrals: Jenn Luna MD [Primary Care Provider] - <Viktoriya Clay - Last Filed: 08/11/17 15:14> Date of Encounter: 08/11/17 - Attending Attestation 67 YOM with EF 45% and negative stress test recently presents with volume overload and new onset Afib. He has been started on Eliquis and rate control with Toprol. I suspect his CHF is dietary in origin and will obtain an consult to help inform him about a low salt diet. Gentle diuresis and a low salt diet will help his afib be better controlled. Sarcoidosis involving the heart is also suspected. CMRI pending at [facility] Assessment and Plan Discussion w patient/family: The assessment and plan as outlined above was discussed with the patient and/or family members who expressed understanding and agreement. All questions were answered. Thank you for involving us in the care of your patient. Please call with any questions. History of Present Illness History of present illness: Mr. Lowry is a 67 year old male All Systems Review: The remainder of the systems were reviewed and are negative Physical Examination Vital Signs, Last 4 Hours Temp Pulse Resp BP Pulse Ox 08/11/17 11:35 18 92 08/11/17 11:30 97.4 F L 77 17 98/64 93 Results 08/11/17 00:31 08/11/17 00:31 Lab Results 08/11/17 08/11/17 08/11/17 00:31 00:31 00:31 WBC 12.2 H Hgb 13.6 Hct 43.3 Plt Count 173 Sodium 131 L Potassium 4.7 Chloride 92 L Carbon Dioxide 34 H BUN 55 H Creatinine 1.46 H Glucose 128 H Calcium 8.7 Magnesium 2.2 Total Bilirubin 0.8 AST 21 ALT 42 Alkaline Phosphatase 45 Troponin I 0.05 H* B-Natriuretic Peptide 08/11/17 08/11/17 00:31 06:23 WBC Hgb Hct Plt Count Sodium Potassium Chloride Carbon Dioxide BUN Creatinine Glucose Calcium Magnesium Total Bilirubin AST ALT Alkaline Phosphatase Troponin I 0.05 H* B-Natriuretic Peptide 905 H
[2017-08-11] MEDS: Metoprolol XL (24 HR) Succ 25 MG TAB.ER.24H PO SCH (10:07)
[2017-08-11] MEDS: Budesonide/Formoterol 160/4.5 MDI IH SCH ×2 (11:33→19:44)
--- NOTE | 2017-08-11 11:38 | Urology - Consult Note ---
Date of Encounter: 08/11/17 Time of Encounter: 11:37 - Assessment and Plan (1) Urinary retention Current Visit: Yes Status: Acute Assessment and plan: Plan to continue with the patient's catheter at this time. Will be started on Flomax. Patient scheduled next at 8:15 for voiding trial with Dr. Calvo. Urology CN:[facility] Consult date: 08/11/17 Reason for consult Urology: Other (urinary reten) Requesting physician: Raymond Long History of present illness: Demetrius is a 67-year-old male with a history of admission to the hospital secondary to COPD and CHF. Patient being evaluated by cardiology for this. Patient was also found to have urinary retention with a host void residual of approximately 3-400. Catheter was placed and is currently indwelling. Patient states that prior to this admission he was having some intermittent difficulty with voiding. Occasional nocturia. No gross hematuria. Past Med Surg Social Fam HX - Past Medical History Medical history: CHF, COPD, hyperlipidemia, other Psychiatric history: no psych history - Past Surgical History Surgical History: other (lymph node biopsy 2004) - Social History Smoking Status: Former smoker Smokeless Tobacco Status: No Alcohol use: rarely Drug use: none Medications and Allergies Acetaminophen [Tylenol] 650 mg PO Q6HR PRN tablet 08/07/17 [Rx] Aspirin Enteric Coated [Aspirin EC] 81 mg PO DAILY tablet. 08/07/17 [Rx] Atorvastatin [Lipitor] 40 mg PO HS #30 tablet 08/07/17 [Rx] Budesonide/Formoterol 160/4.5 [Symbicort 160/4.5] 2 puff IH BIDR #1 inhaler [Rx] Ferrous Sulfate 325 mg PO DAILY@0800 #30 tablet 08/07/17 [Rx] Furosemide [Lasix] 20 mg PO DAILY #10 tablet 08/07/17 [Rx] Ipratropium/Albuterol Neb [Duoneb] 3 ml IH [id number] 30 Days #150 inhsol 08/07/17 [Rx] Levofloxacin [Levaquin] 750 mg PO DAILY #5 tablet 08/07/17 [Rx] Lisinopril [Zestril] 5 mg PO DAILY #30 tablet 08/07/17 [Rx] Melatonin 6 mg PO HS PRN #30 tablet 08/07/17 [Rx] Metoprolol XL (24 HR) Succ [Toprol Xl] 25 mg PO DAILY #30 tab.er.24h 08/07/17 [ Rx] predniSONE [PredniSONE] See Taper PO DAILY 08/10/17 [History] 3 Allergy/AdvReac Type Severity Reaction Status Date / Time No Known Allergies Allergy Verified 07/29/17 12:54 Review of Systems - Constitutional no chills, no fever(s) - EENT Nose, mouth and throat: no dizziness - Cardiovascular no chest pain - Gastrointestinal no abdominal pain - Genitourinary as per HPI Exam Initial Vital Signs Temp Pulse Resp BP Pulse Ox 97.5 F L 125 20 122/61 95 08/10/17 15:22 08/10/17 15:22 08/10/17 15:22 08/10/17 15:22 08/10/17 15:22 - General physical appearance Present: well developed - Respiratory Present: normal respiratory effort - Abdomen Abdomen: Present: soft. Absent: suprapubic tenderness - Genitourinary other (Urine clear in catheter) - Integumentary Present: no abnormal pigmentation Urology Results - Labs 08/11/17 00:31 08/11/17 00:31 Abnormal lab results WBC 12.2 K/mcL (4.3-11.1) H 08/11/17 00:31 RBC 5.54 M/mcL (4.19-5.50) H 08/11/17 00:31 MCV 78.2 fL (83.0-100.0) L 08/11/17 00:31 MCH 24.5 pg (28.0-33.3) L 08/11/17 00:31 MCHC 31.4 g/dL (31.6-35.5) L 08/11/17 00:31 RDW 16.2 % (11.5-14.5) H 08/11/17 00:31 Neutrophils # 10.5 K/mcL (1.6-8.9) H 08/11/17 00:31 Lymphocytes # 0.3 K/mcL (0.6-4.6) L 08/11/17 00:31 APTT 22.5 Seconds (26.0-36.0) L 08/10/17 15:42 Sodium 131 mEq/L (136-145) L 08/11/17 00:31 Chloride 92 mEq/L (98-107) L 08/11/17 00:31 Carbon Dioxide 34 mEq/L (23-29) H 08/11/17 00:31 BUN 55 mg/dL (8-23) H 08/11/17 00:31 Creatinine 1.46 mg/dL (0.70-1.30) H 08/11/17 00:31 Est GFR ( Amer) 59 (> 60) L 08/11/17 00:31 Est GFR (Non-Af Amer) 48 (> 60) L 08/11/17 00:31 BUN/Creatinine Ratio 38 (6-26) H 08/11/17 00:31 Glucose 128 mg/dL (70-105) H 08/11/17 00:31 Troponin I 0.05 ng/mL (< 0.04) H* 08/11/17 06:23 B-Natriuretic Peptide 905 pg/mL (Less than 100) H 08/11/17 00:31 Serum Total Protein 5.1 g/dL (6.4-8.9) L 08/11/17 00:31 Albumin 3.0 g/dL (3.5-5.7) L 08/11/17 00:31 Globulin 2.1 g/dL (2.4-3.5) L 08/11/17 00:31 Diabetes panel 08/11/17 Range/Units 00:31 Sodium 131 L (136-145) mEq/L Potassium 4.7 (3.5-5.1) mEq/L Chloride 92 L (98-107) mEq/L Carbon Dioxide 34 H (23-29) mEq/L BUN 55 H (8-23) mg/dL Creatinine 1.46 H (0.70-1.30) mg/dL Glucose 128 H (70-105) mg/dL Calcium 8.7 (8.6-10.3) mg/dL AST 21 (13-39) Units/L ALT 42 (7-52) Units/L Alkaline Phosphatase 45 (34-104) Units/L Albumin 3.0 L (3.5-5.7) g/dL Calcium panel 08/11/17 Range/Units 00:31 Calcium 8.7 (8.6-10.3) mg/dL Albumin 3.0 L (3.5-5.7) g/dL Pituitary panel 08/11/17 Range/Units 00:31 Sodium 131 L (136-145) mEq/L Potassium 4.7 (3.5-5.1) mEq/L Chloride 92 L (98-107) mEq/L Carbon Dioxide 34 H (23-29) mEq/L BUN 55 H (8-23) mg/dL Creatinine 1.46 H (0.70-1.30) mg/dL Glucose 128 H (70-105) mg/dL Calcium 8.7 (8.6-10.3) mg/dL Adrenal panel 08/11/17 Range/Units 00:31 Sodium 131 L (136-145) mEq/L Potassium 4.7 (3.5-5.1) mEq/L Chloride 92 L (98-107) mEq/L Carbon Dioxide 34 H (23-29) mEq/L BUN 55 H (8-23) mg/dL Creatinine 1.46 H (0.70-1.30) mg/dL Glucose 128 H (70-105) mg/dL Calcium 8.7 (8.6-10.3) mg/dL Total Bilirubin 0.8 (0.3-1.0) mg/dL AST 21 (13-39) Units/L ALT 42 (7-52) Units/L Alkaline Phosphatase 45 (34-104) Units/L Albumin 3.0 L (3.5-5.7) g/dL All other labs normal. Consult Discharge Plan - Plan Referrals: Jenn Luna MD [Primary Care Provider] -
[2017-08-11] MEDS: Melatonin 3 MG TABLET PO PRN (23:22)
[2017-08-12] MEDS: Ipratropium/Albuterol Neb 3 ML IH SCH ×6 (03:57→23:36)
[2017-08-12] MEDS: Acetaminophen 325 MG TABLET PO PRN (04:02)
[2017-08-12 05:40] LABS: Calcium 8.4 mg/dL (8.6-10.3); Potassium 4.4 mEq/L (3.5-5.1)
[2017-08-12] MEDS: Budesonide/Formoterol 160/4.5 MDI IH SCH ×2 (07:28→20:28)
--- NOTE | 2017-08-12 07:44 | Internal Med Progress Note ---
Date of Encounter: 08/12/17 Time of Encounter: 07:42 - Assessment and plan (1) New onset a-fib Current Visit: Yes Status: Acute Assessment and plan: Patient converted to sinus rhythm cardiology following (2) Urinary retention Current Visit: Yes Status: Acute Assessment and plan: appreciate urolog evaluation diaz in place (3) COPD exacerbation Current Visit: No Status: Acute Assessment and plan: no active wheezing continue current RX (4) Cardiomyopathy Current Visit: No Status: Acute Assessment and plan: relatively compensated Qualifiers: Cardiomyopathy type: unspecified Qualified Code(s): I42.9 - Cardiomyopathy , unspecified (5) Elevated troponin I level Current Visit: No Status: Acute Assessment and plan: flat troponin not consistent with nstemi (6) Tobacco abuse Current Visit: No Status: Chronic (7) Anemia Current Visit: No Status: Chronic Assessment and plan: stable hgb Qualifiers: Anemia type: iron deficiency Iron deficiency anemia type: unspecified iron deficiency Qualified Code(s): D50.9 - Iron deficiency anemia, unspecified (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 (9) Sarcoidosis Current Visit: No Status: Chronic Assessment and plan: chronic not on steroid (10) TOM (acute kidney injury) Current Visit: Yes Status: Acute Assessment and plan: most likely due to diuresis dc lasix for now consult nephrology - Subjective Interval history: Patient admitted with new onset atrial fib rate is now better controlled no chest pain Patient feels better now in sinus rhythm but renal function is much worse stopping lasix and consult nephrology - Constitutional Vitals: Temp Pulse Resp BP Pulse Ox 98.1 F 94 16 121/68 95 08/12/17 07:08 08/12/17 07:08 08/12/17 07:30 08/12/17 07:08 08/12/17 07:30 General appearance: Present: mild distress - Eye Eye exam: Present: PERRL, conjuntiva pink, sclera anicteric Pupils: Present: PERRL - Neck Neck exam general surgery: Present: supple, trachea midline. Absent: lymphadenopathy - Respiratory Respiratory exam: Present: rhonchi - Cardiovascular Cardiovascular exam: Present: RRR, +S1, +S2. Absent: diastolic murmur, gallop, rubs, systolic murmur - GI/Abdominal GI/Abdominal exam: Present: normal bowel sounds, soft, no peritoneal signs. Absent: distended, tenderness Internal Medicine: Result - Labs CBC & Chem 7: 08/11/17 00:31 08/12/17 04:42 Labs: BMP 08/12/17 04:42 Sodium 130 L Potassium 4.4 Chloride 92 L Carbon Dioxide 33 H BUN 63 H Creatinine 1.72 H Glucose 89 Calcium 8.4 L Cardiac Enzymes 08/11/17 Range/Units 06:23 Troponin I 0.05 H* (< 0.04) ng/mL - ABG Interpretation ABG results: PT/INR, D-dimer PT 11.1 Seconds (9.4-12.1) 08/10/17 15:42 Consult Discharge Plan - Plan Referrals: Jenn Luna MD [Primary Care Provider] -
[2017-08-12] MEDS: Aspirin Enteric Coated 81 MG Tablet PO SCH (08:02)
[2017-08-12] MEDS: Apixaban 5 MG TABLET PO SCH ×2 (08:02→20:25)
[2017-08-12] MEDS: Metoprolol XL (24 HR) Succ 25 MG TAB.ER.24H PO SCH (08:02)
[2017-08-12] MEDS: levoFLOXacin 750 MG TABLET PO SCH (08:02)
--- NOTE | 2017-08-12 09:50 | Cardiology Progress Note ---
Date of Encounter: 08/12/17 Time of Encounter: 09:47 Assessment and Plan (1) New onset a-fib Current Visit: Yes Status: Acute New onset afib. No previous history of afib. Patient was discharged with holter monitor last visit due to high risk for arrhythmias in the setting of sarcoidosis. Holter results pending. Continue toprol XL at increased dose. Increased to 50 mg daily. Patient received extra metoprolol tartrate yesterday and tolerated well. Converted to NSR overnight. Check EKG. Started on eliquis by primary team. Agree with AC. CHADS VASc=2 for CHF and age. (2) Acute on chronic systolic CHF (congestive heart failure) Current Visit: Yes Status: Acute Recently found to have mildly reduced EF. TTE 08/02/17- LVEF 45%. Mild LV systolic dysfunction. Possible regional variations although image quality is not optimal. Indeterminate diastolic function. Normal right ventricular structure and function. Aortic valve leaflet morphology not well visualized. Possibly a congenitally abnormal valve. Moderate aortic regurgitation. Mild mitral regurgitation. Mild-moderate tricuspid regurgitation. Moderate pulmonary hypertension. Ascending aorta not well visualized. No prior echo for comparison. Known sarcoidosis. Out-pt MRI recommended at last visit. Stress test completed at last visit for ischemic evaluation for new CMP. Stress test was negative for ischemia. ([facility] avoided due to needing work-up for lung mass in one month with pulmonology.) IV lasix stopped due to TOM. Net negative [id number]. Improved symptoms. Continues to have ankle edema. Compression stockings ordered. PT/OT order per daughter request. Strict I&O and daily weights. CHF education. Suspect dietary indiscretions. Continue toprol XL. No aceI due to TOM SOB multifactoral. CXR shows new RLL lung consolidation. Consider PNA-Pt on levaquin. Cardiology will sign off at this time. Out-pt f/u and out -pt MRI will be coordinated by [facility]. (3) Acute exacerbation of chronic obstructive airways disease Current Visit: No Status: Acute Hospitalist following. (4) Elevated troponin I level Current Visit: No Status: Acute Mild troponin elevation likely secondary to demand ischemia from atrial fibrillation with RVR and acute CHF. Discussion w patient/family: The assessment and plan as outlined above was discussed with the patient and/or family members who expressed understanding and agreement. All questions were answered. Thank you for involving us in the care of your patient. Please call with any questions. Subjective Principal diagnosis: new onset afib, CHF Interval history: Mr. Lowry reports he is breathing better. Converted to NSR overnight. Objective Vital Signs, Last 4 Hours Temp Pulse Resp BP Pulse Ox 08/12/17 07:30 16 95 08/12/17 07:08 98.1 F 94 15 121/68 98 General: Conversant, No Apparent Distress HEENT: Atraumatic, Normocephaly, Mucus Membranes Moist Neck: No JVD, Normal carotid pulses Cardiac: Reg Rate and Rhythm, Normal S1 and S2, No Murmur Lungs: Normal Breath Sounds, No Wheeze, Rales, Rhonchi Neuro: Alert and responsive, No focal deficits noted Abdomen: Soft, Non-Tender Skin: No rashes noted on visualized skin Musculoskeletal: No Chest Wall Tenderness Extremities: No Clubbing, No Cyanosis, Normal Pulses, Other (1+ BLE edema) Results 08/11/17 00:31 08/12/17 04:42 Lab Results 08/12/17 04:42 Sodium 130 L Potassium 4.4 Chloride 92 L Carbon Dioxide 33 H BUN 63 H Creatinine 1.72 H Glucose 89 Calcium 8.4 L - Imaging and Cardiology Stress Test: report reviewed Echo: report reviewed - EKG Interpretation EKG results cardiology: personally reviewed Consult Discharge Plan - Plan Referrals: Jenn Luna MD [Primary Care Provider] -
[2017-08-12] MEDS ORDERED: Metoprolol XL (24 HR) Succ 25 MG TAB.ER.24H PO ONE (10:00)
--- NOTE | 2017-08-12 10:52 | Nephrology Consult Note ---
Date of Encounter: 08/12/17 Time of Encounter: 09:15 Assessment and Plan (1) TOM (acute kidney injury) Current Visit: Yes Status: Acute Nonoliguric acute kidney injury. Suspect prerenal and/or hemodynamic insults with the combination of diuretics and A. fib. He has a hypochloremic hyponatremia with rising serum carbon dioxide suggesting a contraction alkalosis consistent with a prerenal picture. I recommend holding the diuretics. There is a reported history of sarcoidosis, so this will also be in my differential. He did have urinary retention, so there could be a post renal etiology as well, but the patient's renal function continued to worsen even after placement of the Diaz, so the post renal contribution may be small. We will start a renal workup with renal ultrasound, urine studies and serologies. Continue to follow a renal protective strategy as able, with strict input and output recordings, as well as daily weights, and dosing of medications by GFR. Thank you for consulting the [facility], and I will follow with you. (2) Urinary retention Current Visit: Yes Status: Acute See above (3) Acute on chronic systolic CHF (congestive heart failure) Current Visit: Yes Status: Acute See above. (4) Anemia Current Visit: No Status: Chronic Qualifiers: Anemia type: iron deficiency Iron deficiency anemia type: unspecified iron deficiency Qualified Code(s): D50.9 - Iron deficiency anemia, unspecified (5) Sarcoidosis Current Visit: No Status: Chronic He is not hypercalcemic at this time, but I will check urine calcium, ionized serum calcium, and PTH. (6) New onset a-fib Current Visit: Yes Status: Acute See above History of Present Illness - Reason for Consult Consult date: 08/12/17 Acute Kidney Injury Requesting physician: Raymond Long - Chief Complaint CHF - History of Present Illness Demetrius Lowry is a very pleasant 67 y/o gentleman with pmh of CHF, urinary retention, prior hx of sarcoidosis and et al who presented a few days ago and was diagnosed with CHF. Urology was consulted for a large point void residual and a diaz catheter was placed. Cardiology was consulted as well. Nephrology was consulted d/t elevated SCr. The said that he's never had a prior orientation & mobility specialist. He affirmed that he occ takes NSAIDs, but none in the week preceding this admission. He did not affirm recent dehydration symptoms -- he denied N/V/D. He was treated with diuretics for his CHF and the SCr has been worsening. The pt did not affirm uremic symptoms: his appetite remains strong, he affirmed, and he has no cramping, itching or confusion. Family History: his father required hemodialysis Past Med Surg Social Fam HX - Past Medical History Medical history: CHF, COPD, hyperlipidemia, other Psychiatric history: no psych history - Past Surgical History Surgical History: other (lymph node biopsy 2004) - Social History Smoking Status: Former smoker Smokeless Tobacco Status: No Alcohol use: rarely Drug use: none Medications and Allergies Acetaminophen [Tylenol] 650 mg PO Q6HR PRN tablet 08/07/17 [Rx] Aspirin Enteric Coated [Aspirin EC] 81 mg PO DAILY tablet. 08/07/17 [Rx] Atorvastatin [Lipitor] 40 mg PO HS #30 tablet 08/07/17 [Rx] Budesonide/Formoterol 160/4.5 [Symbicort 160/4.5] 2 puff IH BIDR #1 inhaler [Rx] Ferrous Sulfate 325 mg PO DAILY@0800 #30 tablet 08/07/17 [Rx] Furosemide [Lasix] 20 mg PO DAILY #10 tablet 08/07/17 [Rx] Ipratropium/Albuterol Neb [Duoneb] 3 ml IH [id number] 30 Days #150 inhsol 08/07/17 [Rx] Levofloxacin [Levaquin] 750 mg PO DAILY #5 tablet 08/07/17 [Rx] Lisinopril [Zestril] 5 mg PO DAILY #30 tablet 08/07/17 [Rx] Melatonin 6 mg PO HS PRN #30 tablet 08/07/17 [Rx] Metoprolol XL (24 HR) Succ [Toprol Xl] 25 mg PO DAILY #30 tab.er.24h 08/07/17 [ Rx] predniSONE [PredniSONE] See Taper PO DAILY 08/10/17 [History] 3 Allergy/AdvReac Type Severity Reaction Status Date / Time No Known Allergies Allergy Verified 07/29/17 12:54 Review of Systems All Systems: reviewed and no additional remarkable complaints except as stated Exam - Vital Signs Vital signs: Initial Vital Signs Temp Pulse Resp BP Pulse Ox 97.5 F L 125 20 122/61 95 08/10/17 15:22 08/10/17 15:22 08/10/17 15:22 08/10/17 15:22 08/10/17 15:22 Vital Signs - Last 8 Hours Temp Pulse Resp BP Pulse Ox 08/12/17 07:30 16 95 08/12/17 07:08 98.1 F 94 15 121/68 98 08/12/17 05:12 98.1 F 109 18 110/62 94 Intake and Output 08/11/17 08/12/17 08/12/17 23:59 07:59 15:59 Intake Total 60 / 60 240 / 240 240 / 240 Output Total 800 / 800 Balance 60 / 60 -560 / -560 240 / 240 Intake: Oral 60 / 60 240 / 240 240 / 240 Output: Catheter 800 / 800 Other: Meal Breakfast Percent of Meal Consumed 100% Stool Size Small # Bowel Movements 1 Weight 80 kg Patient Weight 08/12/17 23:59 Weight 80 kg - General Appearance General appearance: well-developed, well-nourished, appears started age EENT: ATNC, PERRL, mucous membranes moist Neck: no carotid bruit Respiratory: clear Cardiology: holosystolic murmur, edema (1+ ankle edema bilaterally), regular rate, regular rhythm, normal S1, normal S2 - Dialysis Access Dialysis Vascular Access: Arteriovenous Fistula Gastrointestinal: normoactive bowel sounds, no tenderness, no guarding Integumentary: no rash, warm and dry Neurologic: no focal deficit, no asterixis, alert and oriented x3 Musculoskeletal: no deformities, no erythema, no cyanosis Psychiatric: mood/affect appropriate, cooperative Results - Lab Results 08/11/17 00:31 08/12/17 04:42 Most recent lab results Calcium 8.4 mg/dL (8.6-10.3) L 08/12/17 04:42 Magnesium 2.2 mg/dL (1.6-2.6) 08/11/17 00:31 I reviewed the progress notes, labs, medication lists (both inpatient and outpatient), vital signs and imaging. Consult Discharge Plan - Plan Referrals: Jenn Luna MD [Primary Care Provider] - 08/16/17 1:45 pm
--- NOTE | 2017-08-12 12:01 | Electrocardiograph Report ---
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
[2017-08-12 19:44] LABS: Potassium,Urine 68.2 mEq/L
--- NOTE | 2017-08-12 20:06 | Electrocardiograph Report ---
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
[2017-08-12] MEDS: Melatonin 3 MG TABLET PO PRN (22:41)
[2017-08-13] MEDS: Ipratropium/Albuterol Neb 3 ML IH SCH ×6 (03:07→23:14)
[2017-08-13 06:00] LABS: Basophils % 0.1 %; Eosinophils # 0.2 K/mcL (0.0-0.6); Eosinophils % 1.3 %; Hemoglobin 13.4 g/dL (12.9-16.9); Immature Granulocytes % 0.9 % (0-4); Lymphocytes # 0.6 K/mcL (0.6-4.6); Lymphocytes % 4.3 %; Mean Corpuscular HGB Conc 31.2 g/dL (31.6-35.5); Mean Corpuscular Hemoglobin 24.1 pg (28.0-33.3); Mean Corpuscular Volume 77.5 fL (83.0-100.0); Mean Platelet Volume 9.6 fL (9.4-12.4); Monocytes # 0.9 K/mcL (0.0-1.3); Neutrophils # 11.6 K/mcL (1.6-8.9); Platelet Count 127 K/mcL (140-400); Red Blood Count 5.55 M/mcL (4.19-5.50); Red Cell Distribution Width 16.3 % (11.5-14.5); Segmented Neutrophils % 86.4 %
[2017-08-13 06:20] LABS: Calcium 8.8 mg/dL (8.6-10.3); Phosphorous 3.5 mg/dL (2.7-4.5); Potassium 4.6 mEq/L (3.5-5.1)
[2017-08-13] MEDS: Budesonide/Formoterol 160/4.5 MDI IH SCH ×2 (07:39→20:07)
[2017-08-13] MEDS: Apixaban 5 MG TABLET PO SCH ×2 (08:04→22:29)
[2017-08-13] MEDS: Metoprolol XL (24 HR) Succ 25 MG TAB.ER.24H PO SCH (08:04)
[2017-08-13] MEDS: levoFLOXacin 750 MG TABLET PO SCH (08:04)
[2017-08-13] MEDS: Aspirin Enteric Coated 81 MG Tablet PO SCH (08:04)
--- NOTE | 2017-08-13 11:51 | Nephrology Progress Note ---
Date of Encounter: 08/13/17 Time of Encounter: 10:30 - Assessment and Plan (1) TOM (acute kidney injury) Current Visit: Yes Status: Resolved Continue to hold the lasix, but will provide gentle IV hydration. (2) Urinary retention Current Visit: Yes Status: Acute Agree with the diaz. Appreciate Urology. (3) Acute on chronic systolic CHF (congestive heart failure) Current Visit: Yes Status: Acute As per primary. (4) Anemia Current Visit: No Status: Chronic Will trend. Qualifiers: Anemia type: iron deficiency Iron deficiency anemia type: unspecified iron deficiency Qualified Code(s): D50.9 - Iron deficiency anemia, unspecified (5) Sarcoidosis Current Visit: No Status: Chronic Hx of sarcoidosis, but he is not hypercalcemic, so I do not suspect renal sarcoid at this time. (6) New onset a-fib Current Visit: Yes Status: Acute As per primary. Subjective Principal diagnosis: new onset afib, CHF Interval history: Pt was s/e and he did not affirm N/V/D or uremic complaints. Objective - Vital Signs Vital signs: Vital Signs Temp Pulse Resp BP Pulse Ox 08/13/17 09:20 20 08/13/17 07:37 18 114/61 95 08/13/17 07:00 97.6 F 112 93 114/61 08/13/17 05:09 98.2 F 105 18 120/82 96 08/13/17 00:24 98.0 F 94 18 112/68 95 08/12/17 23:37 18 96 08/12/17 20:55 97.8 F 97 20 126/64 97 08/12/17 20:32 93 08/12/17 20:29 17 93 08/12/17 15:35 16 92 08/12/17 15:28 89 106/53 93 Intake and Output 08/12/17 08/13/17 08/13/17 23:59 07:59 15:59 Intake Total 200 / 200 740 / 740 480 / 480 Output Total 250 / 250 1300 / 1300 Balance -50 / -50 -560 / -560 480 / 480 Intake: Oral 200 / 200 740 / 740 480 / 480 Output: Urine 250 / 250 Catheter 1300 / 1300 Other: Meal Breakfast Percent of Meal Consumed 100% Weight 81 kg Patient Weight 08/13/17 23:59 Weight 81 kg - General Appearance Exam: General appearance: well-developed, well-nourished, appears started age EENT: ATNC, PERRL, mucous membranes moist Neck: no carotid bruit Respiratory: clear Cardiology: holosystolic murmur, edema (slightly less than 1+ ankle edema bilaterally), regular rate, regular rhythm, normal S1, normal S2 Gastrointestinal: normoactive bowel sounds, no tenderness, no guarding Integumentary: no rash, warm and dry Neurologic: no focal deficit, no asterixis, alert and oriented x3 Musculoskeletal: no deformities, no erythema, no cyanosis Psychiatric: mood/affect appropriate, cooperative - Lab 08/15/17 05:51 08/16/17 08:09 Most recent lab results Calcium 8.8 mg/dL (8.6-10.3) 08/13/17 05:15 Phosphorus 3.5 mg/dL (2.7-4.5) 08/13/17 05:15 Magnesium 2.0 mg/dL (1.6-2.6) 08/13/17 05:15 Urine Creatinine 136 mg/dL 08/12/17 18:30 Urine Sodium 46.0 mEq/L 08/12/17 18:30 - VTE Documentation of Mechanical Device: Graduated compression elastic hosiery Consult Discharge Plan - Plan Referrals: Jenn Luna MD [Primary Care Provider] - 08/16/17 1:45 pm Prescriptions: Apixaban [Eliquis] 5 mg PO BID #60 tablet
[2017-08-13] MEDS ORDERED: 0.9 % Sodium Chloride 1,000 ML IVC SCH (12:00)
--- NOTE | 2017-08-13 13:03 | Internal Med Progress Note ---
Date of Encounter: 08/13/17 Time of Encounter: 15:32 - Assessment and plan (1) New onset a-fib Current Visit: Yes Status: Acute Assessment and plan: Patient converted to sinus rhythm Continue current management (2) Systolic heart failure Current Visit: Yes Status: Acute Assessment and plan: Takes Zestril but won't resume for right now because of TOM On beta sky metoprolol Qualifiers: Heart failure chronicity: acute on chronic Qualified Code(s): I50.23 - Acute on chronic systolic (congestive) heart failure (3) COPD exacerbation Current Visit: No Status: Acute Assessment and plan: Symbicort Duo Nebs Q4H Levaquin Chest x-ray showing new right lower lobe consolidation Does not seem to be wheezing at this moment. If he develops wheezing will start steroids. (4) Urinary retention Current Visit: Yes Status: Acute Assessment and plan: Urology was consulted Started on Flomax Scheduled for next voiding trial with Dr. Calvo. 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 (10) TOM (acute kidney injury) Current Visit: Yes Status: Acute Assessment and plan: Likely from diuresis Lasix held Nephrology consulted. (11) DVT prophylaxis Current Visit: No Status: Acute Assessment and plan: Currently on Eliquis - Subjective Interval history: No acute events. Tele monitor showing patient sinus rhythm. He did get tachycardic while ambulating to 130s, but has since returned now HR around 90s. - Constitutional Vitals: Temp Pulse Resp BP Pulse Ox 97.6 F 112 20 114/61 93 08/13/17 07:00 08/13/17 07:00 08/13/17 11:54 08/13/17 11:54 08/13/17 11:54 General appearance: Present: mild distress Exam: - Eye Eye exam: Present: PERRL, conjuntiva pink, sclera anicteric Pupils: Present: PERRL - Neck Neck exam general surgery: Present: supple, trachea midline. Absent: lymphadenopathy - Respiratory Respiratory exam: Present: rhonchi - Cardiovascular Cardiovascular exam: Present: RRR, +S1, +S2. Absent: diastolic murmur, gallop, rubs, systolic murmur - GI/Abdominal GI/Abdominal exam: Present: normal bowel sounds, soft, no peritoneal signs. Absent: distended, tenderness Internal Medicine: Result - Labs CBC & Chem 7: 08/13/17 05:15 08/13/17 05:15 Labs: Short CBC 08/13/17 Range/Units 05:15 WBC 13.4 H (4.3-11.1) K/mcL Hgb 13.4 (12.9-16.9) g/dL Hct 43.0 (37.5-50.1) % Plt Count 127 L (140-400) K/mcL Neutrophils # 11.6 H (1.6-8.9) K/mcL BMP 08/13/17 05:15 Sodium 131 L Potassium 4.6 Chloride 93 L Carbon Dioxide 32 H BUN 60 H Creatinine 1.77 H Glucose 88 Calcium 8.8 - ABG Interpretation ABG results: PT/INR, D-dimer PT 11.1 Seconds (9.4-12.1) 08/10/17 15:42 - Impressions Impressions Retroperitoneum Ultrasound 08/12/17 21:30 IMPRESSION: Unremarkable ultrasound of the kidneys and urinary bladder. D/ / Akira Mendoza MD / Akira Mendoza MD Interpreting Provider: Akira Mendoza MD - VTE Documentation of Mechanical Device: Graduated compression elastic hosiery Consult Discharge Plan - Plan Referrals: Jenn Luna MD [Primary Care Provider] - 08/16/17 1:45 pm
[2017-08-13] MEDS ORDERED: *HR* Metoprolol 5 MG/5 ML VIAL IVP ONE (13:04)
[2017-08-13 18:07] LABS: Bilirubin,Urine Negative (Negative); Blood,Urine Large (Negative); Clarity,Urine Cloudy (Clear); Color,Urine Dark Yellow (Yellow); Glucose,Urine (UA) Normal (Normal); Ketones,Urine Negative (Negative); Leukocyte Esterase,Urine Small (Negative); Nitrite,Urine Negative (Negative); Protein,Urine 30 mg/dL (Neg-Trace); Specific Gravity,Urine 1.024 (1.010-1.025); Urobilinogen,Urine Normal (Normal)
[2017-08-13 18:10] LABS: Bacteria,Urine None Seen per hpf (None-Few); Hyaline Casts,Urine None Seen per lpf (None-Few); RBC,Urine TNTC per hpf (0-3); Squamous Epithelial Cell,Urine Moderate per lpf (None-Few)
[2017-08-13] MEDS: Melatonin 3 MG TABLET PO PRN (22:36)
[2017-08-14] MEDS: Ipratropium/Albuterol Neb 3 ML IH SCH ×5 (03:18→20:05)
[2017-08-14] MEDS: levoFLOXacin 750 MG TABLET PO SCH (07:23)
[2017-08-14] MEDS: Metoprolol XL (24 HR) Succ 25 MG TAB.ER.24H PO SCH (07:23)
[2017-08-14] MEDS: Aspirin Enteric Coated 81 MG Tablet PO SCH (07:23)
[2017-08-14] MEDS: Apixaban 5 MG TABLET PO SCH ×2 (07:23→20:38)
[2017-08-14] MEDS: Budesonide/Formoterol 160/4.5 MDI IH SCH ×2 (07:36→20:06)
[2017-08-14 07:47] LABS: Basophils % 0.1 %; Eosinophils # 0.2 K/mcL (0.0-0.6); Eosinophils % 1.6 %; Hematocrit 36.7 % (37.5-50.1); Immature Granulocytes % 0.7 % (0-4); Lymphocytes # 0.5 K/mcL (0.6-4.6); Lymphocytes % 3.5 %; Mean Corpuscular HGB Conc 31.6 g/dL (31.6-35.5); Mean Corpuscular Hemoglobin 24.4 pg (28.0-33.3); Mean Corpuscular Volume 77.3 fL (83.0-100.0); Mean Platelet Volume 10.3 fL (9.4-12.4); Monocytes # 1.1 K/mcL (0.0-1.3); Monocytes % 8.7 %; Neutrophils # 11.2 K/mcL (1.6-8.9); Platelet Count 121 K/mcL (140-400); Red Blood Count 4.75 M/mcL (4.19-5.50); Red Cell Distribution Width 16.3 % (11.5-14.5); Segmented Neutrophils % 85.4 %
[2017-08-14 08:00] LABS: Hemoglobin 11.6 g/dL (12.9-16.9)
[2017-08-14 08:03] LABS: Calcium 8.4 mg/dL (8.6-10.3); Magnesium 1.9 mg/dL (1.6-2.6); Potassium 4.5 mEq/L (3.5-5.1)
--- NOTE | 2017-08-14 10:26 | Nephrology Progress Note ---
Date of Encounter: 08/14/17 Time of Encounter: 09:25 - Assessment and Plan (1) TOM (acute kidney injury) Current Visit: Yes Status: Resolved Slight improvement. Cont the renal conservative strategy. I've not continued the IVF d/t his mild hyponatremia and 1+ pedal edema, but would cont to hold the diuretics d/t the non-oliguric TOM. Diaz in place and good UOP noted, so there may have been a post-renal contribution to this TOM. Cont to follow a renal protective strategy. (2) Urinary retention Current Visit: Yes Status: Acute S/p diaz that was arranged by Urology. (3) Acute on chronic systolic CHF (congestive heart failure) Current Visit: Yes Status: Acute As per primary. (4) Anemia Current Visit: No Status: Chronic Will monitor. Qualifiers: Anemia type: iron deficiency Iron deficiency anemia type: unspecified iron deficiency Qualified Code(s): D50.9 - Iron deficiency anemia, unspecified (5) Sarcoidosis Current Visit: No Status: Chronic Serum Ca++ remains good. (6) New onset a-fib Current Visit: Yes Status: Acute As per primary. Subjective Principal diagnosis: new onset afib, CHF Interval history: Pt was s/e. He did not affirm dysuria or F/C/V but did have one mild episode of nause he said. Has a good appetite, he affirmed. Objective - Vital Signs Vital signs: Vital Signs Temp Pulse Resp BP Pulse Ox 08/14/17 07:33 18 118/64 93 08/14/17 06:53 97.8 F 86 15 118/64 95 08/14/17 03:35 99.1 F 91 18 128/68 96 08/13/17 23:15 17 94 08/13/17 20:10 93 08/13/17 20:08 18 93 08/13/17 19:15 98.5 F 98 21 116/74 92 08/13/17 16:11 99/58 08/13/17 16:00 98.1 F 97 17 88/64 96 08/13/17 15:31 18 99/58 94 08/13/17 11:54 20 114/61 93 Intake and Output 08/13/17 08/14/17 08/14/17 23:59 07:59 15:59 Intake Total 800 / 800 800 / 800 Output Total 750 / 750 600 / 600 Balance 50 / 50 200 / 200 Intake: Oral 800 / 800 800 / 800 Output: Urine 600 / 600 Catheter 750 / 750 Other: Stool Size Moderate # Bowel Movements 1 Weight 79.5 kg Patient Weight 08/14/17 23:59 Weight 79.5 kg - General Appearance Exam: General appearance: well-developed, well-nourished, appears started age EENT: ATNC, PERRL, mucous membranes moist Neck: no carotid bruit Respiratory: clear Cardiology: holosystolic murmur, edema (slightly less than 1+ ankle edema bilaterally), regular rate, regular rhythm, normal S1, normal S2 Gastrointestinal: normoactive bowel sounds, no tenderness, no guarding Integumentary: no rash, warm and dry Neurologic: no focal deficit, no asterixis, alert and oriented x3 Musculoskeletal: no deformities, no erythema, no cyanosis Psychiatric: mood/affect appropriate, cooperative - Lab 08/15/17 05:51 08/16/17 08:09 Most recent lab results Calcium 8.4 mg/dL (8.6-10.3) L 08/14/17 06:49 Phosphorus 3.0 mg/dL (2.7-4.5) 08/14/17 06:49 Magnesium 1.9 mg/dL (1.6-2.6) 08/14/17 06:49 Urine Creatinine 136 mg/dL 08/12/17 18:30 Urine Sodium 46.0 mEq/L 08/12/17 18:30 - VTE Documentation of Mechanical Device: Intermittent pneumatic compression device Consult Discharge Plan - Plan Referrals: Jenn Luna MD [Primary Care Provider] - 08/16/17 1:45 pm Prescriptions: Apixaban [Eliquis] 5 mg PO BID #60 tablet
--- NOTE | 2017-08-14 20:58 | Internal Med Progress Note ---
Date of Encounter: 08/14/17 Time of Encounter: 14:55 - Assessment and plan (1) New onset a-fib Current Visit: Yes Status: Acute Assessment and plan: Patient converted to sinus rhythm Continue current management (2) Systolic heart failure Current Visit: Yes Status: Acute Assessment and plan: Takes Zestril but won't resume for right now because of TOM On beta sky metoprolol Qualifiers: Heart failure chronicity: acute on chronic Qualified Code(s): I50.23 - Acute on chronic systolic (congestive) heart failure (3) TOM (acute kidney injury) Current Visit: Yes Status: Acute Assessment and plan: Nephrology consulted. CrCl currently 51, will keep Levaquin at 750 mg daily and Eliquis at 5 mg BID, and monitor if needs adjusted (4) COPD exacerbation Current Visit: No Status: Acute Assessment and plan: Symbicort Duo Nebs Q4H Levaquin Chest x-ray showing new right lower lobe consolidation Does not seem to be wheezing at this moment. If he develops wheezing will start steroids. (5) Urinary retention Current Visit: Yes Status: Acute Assessment and plan: Urology was consulted Started on Flomax Scheduled for next voiding trial with Dr. Calvo. 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 (11) DVT prophylaxis Current Visit: No Status: Acute Assessment and plan: Currently on Eliquis - Subjective Interval history: 08/13: Tele monitor showing patient sinus rhythm. tachycardic while ambulating to 130s, but has since returned now HR around 90s. 08/14: tachycardia improved, complains of shallow breathing, denies chest pain, fevers/chills. - Constitutional Vitals: Temp Pulse Resp BP Pulse Ox 98.0 F 105 17 127/77 92 08/14/17 20:25 08/14/17 20:25 08/14/17 20:25 08/14/17 20:25 08/14/17 20:25 General appearance: Present: mild distress Exam: CVS: RRR Lungs: course breath sounds with wheezing, no rales Ext: no cyanosis, no edema Internal Medicine: Result - Labs CBC & Chem 7: 08/14/17 06:49 08/14/17 06:49 Labs: Short CBC 08/14/17 Range/Units 06:49 WBC 13.1 H (4.3-11.1) K/mcL Hgb 11.6 L D (12.9-16.9) g/dL Hct 36.7 L (37.5-50.1) % Plt Count 121 L (140-400) K/mcL Neutrophils # 11.2 H (1.6-8.9) K/mcL BMP 08/14/17 06:49 Sodium 130 L Potassium 4.5 Chloride 98 Carbon Dioxide 29 BUN 49 H Creatinine 1.62 H Glucose 82 Calcium 8.4 L - ABG Interpretation ABG results: PT/INR, D-dimer PT 11.1 Seconds (9.4-12.1) 08/10/17 15:42 - VTE Documentation of Mechanical Device: Intermittent pneumatic compression device Consult Discharge Plan - Plan Referrals: Jenn Luna MD [Primary Care Provider] - 08/16/17 1:45 pm
[2017-08-14] MEDS: Melatonin 3 MG TABLET PO PRN (23:13)
[2017-08-14 23:44] LABS: Kappa Qnt Free Light Chains 1.82 mg/dL (0.33-1.94); Lambda Qnt Free Light Chains 2.34 mg/dL (0.57-2.63)
[2017-08-15] MEDS: Ipratropium/Albuterol Neb 3 ML IH SCH ×7 (00:17→23:36)
[2017-08-15] MEDS: Budesonide/Formoterol 160/4.5 MDI IH SCH ×2 (07:40→20:06)
[2017-08-15 07:47] LABS: Calcium 8.3 mg/dL (8.6-10.3); Magnesium 1.8 mg/dL (1.6-2.6); Phosphorous 2.5 mg/dL (2.7-4.5); Potassium 4.4 mEq/L (3.5-5.1); Uric Acid 4.1 mg/dL (2.3-7.6)
[2017-08-15 08:25] LABS: Basophils % 0.2 %; Eosinophils # 0.2 K/mcL (0.0-0.6); Eosinophils % 1.2 %; Hematocrit 36.3 % (37.5-50.1); Hemoglobin 11.6 g/dL (12.9-16.9); Immature Granulocytes % 0.7 % (0-4); Lymphocytes # 0.4 K/mcL (0.6-4.6); Lymphocytes % 3.3 %; Mean Corpuscular Hemoglobin 24.7 pg (28.0-33.3); Mean Corpuscular Volume 77.4 fL (83.0-100.0); Mean Platelet Volume 9.9 fL (9.4-12.4); Monocytes # 1.2 K/mcL (0.0-1.3); Monocytes % 8.9 %; Neutrophils # 11.4 K/mcL (1.6-8.9); Platelet Count 112 K/mcL (140-400); Red Blood Count 4.69 M/mcL (4.19-5.50); Red Cell Distribution Width 16.3 % (11.5-14.5); Segmented Neutrophils % 85.7 %
[2017-08-15] MEDS: Aspirin Enteric Coated 81 MG Tablet PO SCH (09:43)
[2017-08-15] MEDS: Apixaban 5 MG TABLET PO SCH ×2 (09:43→21:23)
[2017-08-15] MEDS: levoFLOXacin 750 MG TABLET PO SCH (09:43)
[2017-08-15] MEDS: Metoprolol XL (24 HR) Succ 25 MG TAB.ER.24H PO SCH (09:43)
--- NOTE | 2017-08-15 09:49 | Nephrology Progress Note ---
Date of Encounter: 08/15/17 Time of Encounter: 09:15 - Assessment and Plan (1) TOM (acute kidney injury) Current Visit: Yes Status: Resolved Slight improvement. Cont the renal conservative strategy. I've not continued the IVF d/t his mild hyponatremia and 1+ pedal edema, but would cont to hold the diuretics d/t the non-oliguric TOM. Diaz in place and good UOP noted, so there may have been a post-renal contribution to this TOM. (2) Urinary retention Current Visit: Yes Status: Acute Having placed the diaz to relieve the urinary retention has overall helped. Urology placed the diaz, and I appreciate their help. (3) Acute on chronic systolic CHF (congestive heart failure) Current Visit: Yes Status: Acute As per primary. (4) Anemia Current Visit: No Status: Chronic Relatively stable. Qualifiers: Anemia type: iron deficiency Iron deficiency anemia type: unspecified iron deficiency Qualified Code(s): D50.9 - Iron deficiency anemia, unspecified (5) Sarcoidosis Current Visit: No Status: Chronic No findings of hypercalcemia, so I do not suspect renal sarcoidosis. (6) New onset a-fib Current Visit: Yes Status: Acute As per primary. Subjective Principal diagnosis: new onset afib, CHF Interval history: Pt was s/e and he did not affirm N/V/D or uremic complaints. Objective - Vital Signs Vital signs: Vital Signs Temp Pulse Resp BP Pulse Ox 08/15/17 07:40 18 98 08/15/17 06:52 98.5 F 99 18 131/75 98 08/15/17 04:57 95 20 127/64 92 08/15/17 03:50 16 93 08/15/17 00:17 17 95 08/14/17 20:25 98.0 F 105 17 127/77 92 08/14/17 20:05 18 90 08/14/17 15:57 18 129/53 92 08/14/17 14:00 97.9 F 99 16 129/53 91 08/14/17 11:31 18 118/64 95 Intake and Output 08/14/17 08/15/17 08/15/17 23:59 07:59 15:59 Intake Total 240 / 240 240 / 240 Output Total 1100 / 1100 1050 / 1050 Balance -860 / -860 -1050 / -1050 240 / 240 Intake: Oral 240 / 240 240 / 240 Output: Catheter 1100 / 1100 1050 / 1050 Other: Meal Breakfast Percent of Meal Consumed 90% Weight 78.9 kg Patient Weight 08/15/17 23:59 Weight 78.9 kg - General Appearance Exam: General appearance: well-developed, well-nourished, appears started age EENT: ATNC, PERRL, mucous membranes moist Neck: no carotid bruit Respiratory: clear Cardiology: holosystolic murmur, edema (slightly less than 1+ ankle edema bilaterally), regular rate, regular rhythm, normal S1, normal S2 Gastrointestinal: normoactive bowel sounds, no tenderness, no guarding Integumentary: no rash, warm and dry Neurologic: no focal deficit, no asterixis, alert and oriented x3 Musculoskeletal: no deformities, no erythema, no cyanosis Psychiatric: mood/affect appropriate, cooperative - Lab 08/15/17 05:51 08/16/17 08:09 Most recent lab results Calcium 8.3 mg/dL (8.6-10.3) L 08/15/17 05:51 Phosphorus 2.5 mg/dL (2.7-4.5) L 08/15/17 05:51 Magnesium 1.8 mg/dL (1.6-2.6) 08/15/17 05:51 Urine Creatinine 136 mg/dL 08/12/17 18:30 Urine Sodium 46.0 mEq/L 08/12/17 18:30 - VTE Documentation of Mechanical Device: Intermittent pneumatic compression device Consult Discharge Plan - Plan Referrals: Jenn Luna MD [Primary Care Provider] - 08/16/17 1:45 pm Prescriptions: Apixaban [Eliquis] 5 mg PO BID #60 tablet
[2017-08-15 09:54] LABS: Complement Component 3 100 mg/dL (88-201); Complement Component 4 18 mg/dL (10-40)
[2017-08-15 10:05] LABS: ANA IgG by ELISA NONE DETECTED (None Detected); Myeloperoxidase Ab 1 AU/mL (0-19); Serine Protease-3 Antibody 0 AU/mL (0-19)
[2017-08-15] MEDS ORDERED: methylPREDNISolone 125 MG/2 ML VIAL IVP STA (10:19)
--- NOTE | 2017-08-15 10:47 | Internal Med Progress Note ---
Date of Encounter: 08/15/17 Time of Encounter: 10:46 - Assessment and plan (1) New onset a-fib Current Visit: Yes Status: Acute Assessment and plan: Patient converted to sinus rhythm Continue current management (2) Systolic heart failure Current Visit: Yes Status: Acute Assessment and plan: Takes Zestril but won't resume for right now because of TOM On beta sky metoprolol Holding Lasix because of patient hyponatremia, he may need gentle IV fluid hydration currently. Qualifiers: Heart failure chronicity: acute on chronic Qualified Code(s): I50.23 - Acute on chronic systolic (congestive) heart failure (3) TOM (acute kidney injury) Current Visit: Yes Status: Acute Assessment and plan: Nephrology consulted. CrCl currently 51, will keep Levaquin at 750 mg daily and Eliquis at 5 mg BID, and monitor if needs adjusted (4) COPD exacerbation Current Visit: No Status: Acute Assessment and plan: Symbicort Duo Nebs Q4H Levaquin Chest x-ray showing new right lower lobe consolidation Was not wheezing but now has faint wheezing and we will start steroids. Also get CT chest since not significantly improving. (5) Urinary retention Current Visit: Yes Status: Acute Assessment and plan: Urology was consulted Started on Flomax Scheduled for next voiding trial with Dr. Calvo. 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 (11) DVT prophylaxis Current Visit: No Status: Acute Assessment and plan: Currently on Eliquis - Subjective Interval history: 08/13: Tele monitor showing patient sinus rhythm. tachycardic while ambulating to 130s, but has since returned now HR around 90s. 3/4: tachycardia improved, complains of shallow breathing, denies chest pain, fevers/chills. - Constitutional Vitals: Temp Pulse Resp BP Pulse Ox 98.5 F 99 18 131/75 98 08/15/17 06:52 08/15/17 06:52 08/15/17 07:40 08/15/17 06:52 08/15/17 07:40 General appearance: Present: mild distress - Head Head exam: Present: atraumatic, normocephalic - Eye Eye exam: Present: PERRL, conjuntiva pink, sclera anicteric Pupils: Present: PERRL - Neck Neck exam general surgery: Present: supple, trachea midline. Absent: lymphadenopathy - Respiratory Respiratory exam: Present: wheezes (faint). Absent: accessory muscle use, rales , rhonchi - Cardiovascular Cardiovascular exam: Present: RRR, +S1, +S2. Absent: diastolic murmur, gallop, rubs, systolic murmur - GI/Abdominal GI/Abdominal exam: Present: normal bowel sounds, soft, no peritoneal signs. Absent: distended, tenderness - Extremities Exam Extremities exam: Present: warm, radial pulses palpable and symmetrical. Absent : calf tenderness, cyanotic, pedal edema - Neurological Exam Neurological exam: Present: CN II-XII intact, oriented X3, no focal deficits. Absent: pronater drift, facial droop, speech deficit - Skin Skin exam: Present: dry, intact Internal Medicine: Result - Labs CBC & Chem 7: 08/15/17 05:51 08/15/17 05:51 Labs: Short CBC 08/15/17 Range/Units 05:51 WBC 13.3 H (4.3-11.1) K/mcL Hgb 11.6 L (12.9-16.9) g/dL Hct 36.3 L (37.5-50.1) % Plt Count 112 L (140-400) K/mcL Neutrophils # 11.4 H (1.6-8.9) K/mcL BMP 08/15/17 05:51 Sodium 128 L Potassium 4.4 Chloride 96 L Carbon Dioxide 25 BUN 44 H Creatinine 1.49 H Glucose 128 H Calcium 8.3 L - ABG Interpretation ABG results: PT/INR, D-dimer PT 11.1 Seconds (9.4-12.1) 08/10/17 15:42 - VTE Documentation of Mechanical Device: Intermittent pneumatic compression device Consult Discharge Plan - Plan Referrals: Jenn Luna MD [Primary Care Provider] - 08/16/17 1:45 pm
[2017-08-15 14:47] LABS: Alpha 2 Globulin (PEP) 0.77 g/dL (0.48-1.05); Beta Globulin (PEP) 0.57 g/dL (0.48-1.10)
[2017-08-15] MEDS ORDERED: MethylPREDNISolone 40 MG/ML VIAL IVP SCH (16:00)
[2017-08-15] MEDS: Melatonin 3 MG TABLET PO PRN (21:23)
[2017-08-15] MEDS: MethylPREDNISolone 40 MG/ML VIAL IVP SCH (23:01)
--- NOTE | 2017-08-16 01:08 | Event Note ---
Date of Encounter: 08/16/17 Time of Encounter: 17:07 Additional diagnosis: Acute on Chronic Respiratory failure This is multifactorial (pneumonia, heart failure, COPD) and complicated by patient history of silicosis. 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 Patient was planned to have a outpatient Pulmonology appointment to set up but he was readmitted in that time. - Consult Pulmonology in AM - Start patient on IV Solu-Medrol scheduled. Daughter states he did get benefit from high dose. He was not on steroids on admission because he did not appear in COPD exacerbation. - Broad spectrum antibiotics,vancomycin and Zosyn. He has been on Levaquin with no apparent improvement. - Await final read of CT chest.
[2017-08-16] MEDS: Ipratropium/Albuterol Neb 3 ML IH SCH ×6 (03:27→22:48)
[2017-08-16] MEDS: Budesonide/Formoterol 160/4.5 MDI IH SCH ×2 (07:43→19:46)
[2017-08-16 08:26] LABS: IFE Reflexed IFE Done; Immunoglobulin A 170 mg/dL (68-408); Immunoglobulin G 532 mg/dL (768-1632); Immunoglobulin M 130 mg/dL (35-263)
[2017-08-16] MEDS: Aspirin Enteric Coated 81 MG Tablet PO SCH (08:31)
[2017-08-16] MEDS: Apixaban 5 MG TABLET PO SCH ×2 (08:31→21:30)
[2017-08-16] MEDS: Metoprolol XL (24 HR) Succ 25 MG TAB.ER.24H PO SCH (08:33)
[2017-08-16] MEDS: MethylPREDNISolone 40 MG/ML VIAL IVP SCH ×2 (08:36→20:20)
[2017-08-16 09:05] LABS: BUN/Creatinine Ratio 36 (6-26); Blood Urea Nitrogen 40 mg/dL (8-23); Calcium 8.8 mg/dL (8.6-10.3); Carbon Dioxide 26 mEq/L (23-29); Chloride 99 mEq/L (98-107); Glucose 153 mg/dL (70-105); Osmolality,Calculated 285 (280-300); Potassium 4.4 mEq/L (3.5-5.1); Sodium 131 mEq/L (136-145); eGFR For African Americans > 60 (> 60); eGFR For Non-African Americans > 60 (> 60)
--- NOTE | 2017-08-16 10:37 | Nephrology Progress Note ---
Date of Encounter: 08/16/17 Time of Encounter: 10:35 - Assessment and Plan (1) TOM (acute kidney injury) Current Visit: Yes Status: Resolved Kidney function back to normal Robost UOP 2550ml Nephrology signing off case. BMP in 1 week post hospital Follow up in office in 4 weeks (2) Acute on chronic systolic CHF (congestive heart failure) Current Visit: Yes Status: Acute per primary team (3) New onset a-fib Current Visit: Yes Status: Acute per primary team (4) COPD exacerbation Current Visit: No Status: Acute per primary team Subjective Principal diagnosis: new onset afib, CHF Interval history: Patient seen and examined. States he is doing well today Objective - Vital Signs Vital signs: Vital Signs Temp Pulse Resp BP Pulse Ox 08/16/17 07:43 20 96 08/16/17 07:02 97.7 F 98 125/72 08/16/17 05:00 97.6 F 102 20 127/71 96 08/16/17 03:28 18 90 08/15/17 23:37 18 90 08/15/17 20:09 18 94 08/15/17 20:00 98 F 96 22 133/72 93 08/15/17 16:43 97.2 F L 87 16 117/62 96 08/15/17 16:35 18 93 08/15/17 12:09 98.4 F 96 14 125/76 92 08/15/17 11:38 18 93 Intake and Output 08/15/17 08/16/17 08/16/17 23:59 07:59 15:59 Intake Total 370 / 370 240 / 240 600 / 600 Output Total 600 / 600 1200 / 1200 Balance -230 / -230 -960 / -960 600 / 600 Intake: IV Fluids 250 / 250 Vancocin 1,250 MG In 0.9 % 250 / 250 Sodium Chloride 250 ML @ 167 mls/hr IVPB Q24H [facility] Rx#: [id number] Oral 120 / 120 240 / 240 600 / 600 Output: Urine 600 / 600 Catheter 1200 / 1200 Other: Meal Breakfast Percent of Meal Consumed 100% Stool Size Large Stool Consistency soft Stool Color Brown # Bowel Movements 1 Weight 80 kg Patient Weight 08/16/17 23:59 Weight 80 kg - General Appearance General appearance: Present: well-developed, well-nourished EENT: Present: ATNC, mucous membranes moist, hearing intact, vision intact Neck: Present: supple Respiratory: Present: clear Cardiology: Present: normal S1, normal S2 Gastrointestinal: Present: no tenderness, no guarding Integumentary: Present: warm and dry Psychiatric: Present: mood/affect appropriate, cooperative - Lab 08/15/17 05:51 08/16/17 08:09 Most recent lab results Calcium 8.8 mg/dL (8.6-10.3) 08/16/17 08:09 Phosphorus 2.5 mg/dL (2.7-4.5) L 08/15/17 05:51 Magnesium 1.8 mg/dL (1.6-2.6) 08/15/17 05:51 Urine Creatinine 136 mg/dL 08/12/17 18:30 Urine Sodium 46.0 mEq/L 08/12/17 18:30 - VTE Documentation of Mechanical Device: Graduated compression elastic hosiery Consult Discharge Plan - Plan Referrals: Jenn Luna MD [Primary Care Provider] - 08/16/17 1:45 pm Prescriptions: Apixaban [Eliquis] 5 mg PO BID #60 tablet
--- NOTE | 2017-08-16 15:34 | Internal Med Progress Note ---
Date of Encounter: 08/16/17 Time of Encounter: 15:33 - Subjective Interval history: - Assessment and plan (1) New onset a-fib Patient converted to sinus rhythm Continue current management (2) Systolic heart failure Takes Zestril but won't resume for right now because of TOM On beta sky metoprolol Holding Lasix because of patient hyponatremia, he may need gentle IV fluid hydration currently. (3) TOM (acute kidney injury) Nephrology consulted Good UO (4) COPD exacerbation: Symbicort Duo Nebs Q4H Levaquin Chest x-ray showing new right lower lobe consolidation. (5) Urinary retention Started on Flomax Scheduled for next voiding trial with Dr. Umesh gaston Miles (6) Cardiomyopathy Compensated (7) Elevated troponin I level (8) Anemia Stable hgb Continue to follow (9) Chronic silicosis (10) Sarcoidosis Not on chronic steroid therapy (11) DVT prophylaxis Currently on Eliquis - Constitutional Vitals: Temp Pulse Resp BP Pulse Ox 97.7 F 98 20 125/72 96 08/16/17 07:02 08/16/17 07:02 08/16/17 11:34 08/16/17 07:02 08/16/17 11:34 General appearance: Present: mild distress, A&O X 3, pleasant - Head Head exam: Present: atraumatic, normocephalic - Eye Eye exam: Present: EOMI, PERRL, conjuntiva pink, sclera anicteric Pupils: Present: PERRL - ENT ENT exam: Present: mucous membranes moist - Neck Neck exam general surgery: Present: full ROM, supple. Absent: nuchal rigidity, thyromegaly, trachea midline - Respiratory Respiratory exam: Present: decreased breath sounds, rales. Absent: CTAB, stridor, wheezes - Cardiovascular Cardiovascular exam: Present: RRR, +S1, +S2. Absent: JVD - GI/Abdominal GI/Abdominal exam: Present: normal bowel sounds. Absent: firm, guarding, rebound, rigid - Neurological Exam Neurological exam: Present: CN II-XII intact, oriented X3, pronater drift Internal Medicine: Result - Labs CBC & Chem 7: 08/15/17 05:51 08/16/17 08:09 Labs: BMP 08/16/17 08:09 Sodium 131 L Potassium 4.4 Chloride 99 Carbon Dioxide 26 BUN 40 H Creatinine 1.10 Glucose 153 H Calcium 8.8 - ABG Interpretation ABG results: PT/INR, D-dimer PT 11.1 Seconds (9.4-12.1) 08/10/17 15:42 - Impressions Impressions Chest CT 08/15/17 11:08 IMPRESSION: 1. Consolidation in the right upper lobe. In the proper clinical setting, finding would be compatible with pneumonia. This has slightly progressed since the exam of August 01, 2017. 2. 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 3. Small to moderate right pleural effusion and small left pleural effusion. 4. Focal nodularity in the anterior margin of the right upper lobe, previously measured 2.3 x 1.6 cm on the exam of August 01, 2017 has decreased in size, now measuring 1.3 x 1.1 cm. Given decrease in size, this is probably an infectious or inflammatory process but warrants continued follow-up on subsequent exams. D/ / 08/15/2017 13:28:49 Sandro Rivas MD / liam Interpreting Provider: Sandro Rivas MD - VTE Documentation of Mechanical Device: Graduated compression elastic hosiery Consult Discharge Plan - Plan Referrals: Jenn Luna MD [Primary Care Provider] - 08/16/17 1:45 pm Prescriptions: Apixaban [Eliquis] 5 mg PO BID #60 tablet
[2017-08-16] MEDS ORDERED: Cefepime HCl 2,000 MG in Water for inj. (sterile) 20 ML IVP SCH (20:00)
[2017-08-16] MEDS: Melatonin 3 MG TABLET PO PRN (21:30)
[2017-08-16] MEDS ORDERED: Albuterol 2.5 MG/3 ML NEBULIZER IH PRN (21:49)
[2017-08-17] MEDS: MethylPREDNISolone 40 MG/ML VIAL IVP SCH ×3 (00:38→16:53)
[2017-08-17] MEDS: Ipratropium/Albuterol Neb 3 ML IH SCH ×7 (03:57→23:08)
[2017-08-17 07:10] LABS: Basophils % 0.1 %; Immature Granulocytes % 0.7 % (0-4); Lymphocytes # 0.1 K/mcL (0.6-4.6); Lymphocytes % 0.8 %; Mean Corpuscular HGB Conc 31.4 g/dL (31.6-35.5); Mean Corpuscular Hemoglobin 24.7 pg (28.0-33.3); Mean Corpuscular Volume 78.5 fL (83.0-100.0); Mean Platelet Volume 10.2 fL (9.4-12.4); Monocytes # 0.4 K/mcL (0.0-1.3); Monocytes % 2.5 %; Neutrophils # 15.1 K/mcL (1.6-8.9); Platelet Count 121 K/mcL (140-400); Red Blood Count 4.46 M/mcL (4.19-5.50); Red Cell Distribution Width 16.4 % (11.5-14.5); Segmented Neutrophils % 95.9 %
[2017-08-17 07:37] LABS: BUN/Creatinine Ratio 42 (6-26); Blood Urea Nitrogen 45 mg/dL (8-23); Calcium 8.8 mg/dL (8.6-10.3); Carbon Dioxide 27 mEq/L (23-29); Chloride 101 mEq/L (98-107); Glucose 152 mg/dL (70-105); Osmolality,Calculated 291 (280-300); Potassium 5.3 mEq/L (3.5-5.1); Sodium 133 mEq/L (136-145); eGFR For African Americans > 60 (> 60); eGFR For Non-African Americans > 60 (> 60)
[2017-08-17] MEDS: Budesonide/Formoterol 160/4.5 MDI IH SCH ×2 (08:27→19:49)
[2017-08-17] MEDS: Metoprolol XL (24 HR) Succ 25 MG TAB.ER.24H PO SCH (09:09)
[2017-08-17] MEDS: Apixaban 5 MG TABLET PO SCH ×2 (09:10→20:40)
[2017-08-17] MEDS: Aspirin Enteric Coated 81 MG Tablet PO SCH (09:10)
[2017-08-17] MEDS ORDERED: Cefepime HCl 2,000 MG in Water for inj. (sterile) 20 ML 20 ML IVP SCH ×3 (09:15→17:00)
--- NOTE | 2017-08-17 11:54 | Internal Med Progress Note ---
Date of Encounter: 08/17/17 Time of Encounter: 11:52 - Subjective Interval history: - Assessment and plan (1) New onset a-fib Patient converted to sinus rhythm Rate controlled with Metoprolol Continue Eliquis (2) Systolic heart failure WANG and Lasix held because of TOM On metoprolol (3) TOM (acute kidney injury) Nephrology consulted Good UO (4) COPD exacerbation: Symbicort Duo Nebs Q4H SoluMedrol Levaquin was changed to Vanc and Zosyn Complicated by underlying lung disease (Silicosis and Sarcoidosis) (5) Urinary retention Started on Flomax Scheduled for next voiding trial with Dr. Umesh Hennessy chronic Miles (6) RUL infiltrate Continue Vanc and Zosyn (7) Elevated troponin I level Demand ischemia per cardiology (8) Anemia Stable hgb Continue to follow (9) Hyperkalemia: Kayexalate ordered (10) Sarcoidosis and Silicosis Not on chronic steroid therapy at home SoluMedrol started for COPD exacerbation Consult pulmonary medicine (11) DVT prophylaxis Currently on Eliquis - Constitutional Vitals: Temp Pulse Resp BP Pulse Ox 98.0 F 93 17 139/72 96 08/17/17 11:49 08/17/17 11:49 08/17/17 11:49 08/17/17 11:49 08/17/17 11:49 General appearance: Present: mild distress, A&O X 3, pleasant Internal Medicine: Result - Labs CBC & Chem 7: 08/17/17 06:31 08/17/17 06:31 Labs: Short CBC 08/17/17 Range/Units 06:31 WBC 15.7 H (4.3-11.1) K/mcL Hgb 11.0 L (12.9-16.9) g/dL Hct 35.0 L (37.5-50.1) % Plt Count 121 L (140-400) K/mcL Neutrophils # 15.1 H (1.6-8.9) K/mcL BMP 08/17/17 06:31 Sodium 133 L Potassium 5.3 H Chloride 101 Carbon Dioxide 27 BUN 45 H Creatinine 1.08 Glucose 152 H Calcium 8.8 - ABG Interpretation ABG results: PT/INR, D-dimer PT 11.1 Seconds (9.4-12.1) 08/10/17 15:42 - Impressions Impressions Chest CT 08/15/17 11:08 IMPRESSION: 1. Consolidation in the right upper lobe. In the proper clinical setting, finding would be compatible with pneumonia. This has slightly progressed since the exam of August 01, 2017. 2. 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 3. Small to moderate right pleural effusion and small left pleural effusion. 4. Focal nodularity in the anterior margin of the right upper lobe, previously measured 2.3 x 1.6 cm on the exam of August 01, 2017 has decreased in size, now measuring 1.3 x 1.1 cm. Given decrease in size, this is probably an infectious or inflammatory process but warrants continued follow-up on subsequent exams. D/ / 08/15/2017 13:28:49 Sandro Rivas MD / liam Interpreting Provider: Sandro Rivas MD - VTE Documentation of Mechanical Device: Graduated compression elastic hosiery Consult Discharge Plan - Plan Referrals: Jenn Luna MD [Primary Care Provider] - 08/16/17 1:45 pm Prescriptions: Apixaban [Eliquis] 5 mg PO BID #60 tablet
--- NOTE | 2017-08-17 13:11 | Pulmonology Consult Note ---
Date of Encounter: 08/17/17 Time of Encounter: 12:00 Assessment and Plan (1) Acute and chronic respiratory failure Current Visit: No Status: Acute Patient presenting with Acute on Chronic Hypoxic respiratory failure patient is almost his baseline home Oxygen requirements . The current presentation doesnt look like COPD exacerbation with shortness of breadth and pedal edema more point towards Acute on Chronic systolic heart failure . Qualifiers: Respiratory failure complication: hypoxia Qualified Code(s): J96.21 - Acute and chronic respiratory failure with hypoxia (2) Acute on chronic systolic CHF (congestive heart failure) Current Visit: Yes Status: Acute Patient presenting with shortness of breadth and pedal edema with not much sputum production with patient atrial fibrillation with RVR tipped him to decompensated heart failure . To continue diuresis as tolerated . (3) COPD (chronic obstructive pulmonary disease) Current Visit: Yes Status: Acute To continue bronchodilators , steroids and antibiotics currently will descalate steroids oral prednisone he will need atleast 3 week taper of prednisone . His CT chest when compared to Jul 2018 most part is the same except for a single consolidative opacity slightly progressed in size . RML nodule looks little bit smaller favoring infectious inflammatory etiology . Qualifiers: COPD type: chronic bronchitis Qualified Code(s): J41.8 - Mixed simple and mucopurulent chronic bronchitis (4) Chronic silicosis Current Visit: No Status: Chronic Upper lobe changes were stable (5) Sarcoidosis Current Visit: No Status: Chronic Calcium is stable , will check WANG levels i dont think this is acute exacerbation of sarcoidosis will closely follow as an outpatient (6) Pneumonia Current Visit: Yes Status: Acute Patient presented with pneumonia in the last admission i dont think this admission looks like recurrent pneumonia his pro calcitonin is very low , will soon descalate antibiotics if the symptoms are getting better with diuresis on tuesday will consider Bronchsocopy with BAL . Qualifiers: Pneumonia type: due to unspecified organism Laterality: unspecified laterality Lung location: unspecified part of lung Qualified Code(s): J18.9 - Pneumonia, unspecified organism History of Present Illness Consult date: 08/17/17 Requesting physician: Addison Blanco Chief complaint: Shortness of breadth and pedal edema History of present illness: 67 year old male with past medical history significant for Severe O2 depndent COPD has severe bullous emphysematous disease , chronic sillicosis with chronic in bilateral upper lobe , sarcoidosis which was diagnosed in 2004 was recently admitted for COPD exacerbation was treated with steroids and antibiotics was sent home was doing well and went into his PCP appointment found to be more short of breadth with bilateral pedal edema was found to be in A fib with RVR , patient says he had cough but not much sputum production this presentation is not like his usual presentation of COPD , says he is still more short of breadth has pedal edema , orthopnea , denies any GERD or Neuro symptoms , denies any fever or chills . Pulmonary was consulted for this evaluation for this recurrent Acute on Chronic Hypoxic respiratory failure . Past Med Surg Social Fam HX - Past Medical History Medical history: CHF, COPD, hyperlipidemia, other Psychiatric history: no psych history - Past Surgical History Surgical History: other (lymph node biopsy 2004) - Social History Smoking Status: Former smoker Smokeless Tobacco Status: No Alcohol use: rarely Drug use: none Medications and Allergies Acetaminophen [Tylenol] 650 mg PO Q6HR PRN tablet 08/07/17 [Rx] Aspirin Enteric Coated [Aspirin EC] 81 mg PO DAILY tablet. 08/07/17 [Rx] Atorvastatin [Lipitor] 40 mg PO HS #30 tablet 08/07/17 [Rx] Budesonide/Formoterol 160/4.5 [Symbicort 160/4.5] 2 puff IH BIDR #1 inhaler [Rx] Ferrous Sulfate 325 mg PO DAILY@0800 #30 tablet 08/07/17 [Rx] Furosemide [Lasix] 20 mg PO DAILY #10 tablet 08/07/17 [Rx] Ipratropium/Albuterol Neb [Duoneb] 3 ml IH [id number] 30 Days #150 inhsol 08/07/17 [Rx] Levofloxacin [Levaquin] 750 mg PO DAILY #5 tablet 08/07/17 [Rx] Lisinopril [Zestril] 5 mg PO DAILY #30 tablet 08/07/17 [Rx] Melatonin 6 mg PO HS PRN #30 tablet 08/07/17 [Rx] Metoprolol XL (24 HR) Succ [Toprol Xl] 25 mg PO DAILY #30 tab.er.24h 08/07/17 [ Rx] predniSONE [PredniSONE] See Taper PO DAILY 08/10/17 [History] Apixaban [Eliquis] 5 mg PO BID #60 tablet 08/15/17 [Rx] 3 Allergy/AdvReac Type Severity Reaction Status Date / Time No Known Allergies Allergy Verified 07/29/17 12:54 All Systems: The remainder of the systems were reviewed and are negative Physical Examination Vital Signs: Vital Signs, Last 4 Hours Temp Pulse Resp BP Pulse Ox 08/17/17 11:49 98.0 F 93 17 139/72 96 Auscultation: bilateral: other (bilateral bibasilar crackles ) Extremities: edema Results - Laboratory Findings CBC and BMP: 08/17/17 06:31 08/17/17 17:08 PT/INR, D-dimer PT 11.1 Seconds (9.4-12.1) 08/10/17 15:42 Abnormal lab findings: Abnormal lab results WBC 15.7 K/mcL (4.3-11.1) H 08/17/17 06:31 Hgb 11.0 g/dL (12.9-16.9) L 08/17/17 06:31 Hct 35.0 % (37.5-50.1) L 08/17/17 06:31 MCV 78.5 fL (83.0-100.0) L 08/17/17 06:31 MCH 24.7 pg (28.0-33.3) L 08/17/17 06:31 MCHC 31.4 g/dL (31.6-35.5) L 08/17/17 06:31 RDW 16.4 % (11.5-14.5) H 08/17/17 06:31 Plt Count 121 K/mcL (140-400) L 08/17/17 06:31 Neutrophils # 15.1 K/mcL (1.6-8.9) H 08/17/17 06:31 Lymphocytes # 0.1 K/mcL (0.6-4.6) L 08/17/17 06:31 APTT 22.5 Seconds (26.0-36.0) L 08/10/17 15:42 Sodium 133 mEq/L (136-145) L 08/17/17 06:31 Potassium 5.3 mEq/L (3.5-5.1) H 08/17/17 06:31 BUN 45 mg/dL (8-23) H 08/17/17 06:31 BUN/Creatinine Ratio 42 (6-26) H 08/17/17 06:31 Glucose 152 mg/dL (70-105) H 08/17/17 06:31 Phosphorus 2.5 mg/dL (2.7-4.5) L 08/15/17 05:51 Creatine Kinase 21 Units/L (30-223) L 08/13/17 05:15 Troponin I 0.05 ng/mL (< 0.04) H* 08/11/17 06:23 B-Natriuretic Peptide 905 pg/mL (Less than 100) H 08/11/17 00:31 Serum Total Protein 5.1 g/dL (6.4-8.9) L 08/11/17 00:31 Total Protein (PEP) 4.90 g/dL (6.00-8.30) L 08/13/17 05:15 Albumin 3.0 g/dL (3.5-5.7) L 08/11/17 00:31 Albumin (PEP) 2.62 g/dL (3.75-5.01) L 08/13/17 05:15 Globulin 2.1 g/dL (2.4-3.5) L 08/11/17 00:31 Procalcitonin 0.20 ng/mL (<=0.10) H 08/14/17 06:49 Urine Clarity Cloudy (Clear) A 08/13/17 17:55 Urine Protein 30 mg/dL (Neg-Trace) H 08/13/17 17:55 Urine Blood Large (Negative) H 08/13/17 17:55 Ur Leukocyte Esterase Small (Negative) H 08/13/17 17:55 Urine Microscopic RBC TNTC per hpf (0-3) H 08/13/17 17:55 Urine Microscopic WBC 5-15 per hpf (0-3) H 08/13/17 17:55 Ur Squamous Epith Cells Moderate per lpf (None-Few) H 08/13/17 17:55 IgG 532 mg/dL (768-1632) L 08/13/17 05:15 - Clinical Findings Intake & Output: Intake & Output 08/16/17 08/17/17 08/17/17 23:59 07:59 15:59 Intake Total 480 / 480 750 / 750 Output Total 1250 / 1250 0 / 0 Balance -770 / -770 750 / 750 Weight 83.3 kg Consult Discharge Plan - Plan Referrals: Jenn Luna MD [Primary Care Provider] - 08/16/17 1:45 pm Prescriptions: Apixaban [Eliquis] 5 mg PO BID #60 tablet
[2017-08-17 16:49] LABS: Large Platelets Present (Not Present); Toxic Granulation Present (Not Present)
[2017-08-17 16:50] LABS: Microcytosis Present (Not Present); Platelet Estimate Decreased (Normal)
[2017-08-17] MEDS: Furosemide 40 MG/4 ML VIAL IVP SCH ×3 (16:53→21:42)
[2017-08-17] MEDS: Piperacillin/Tazobactam 3.375 GM in 0.9 % Sodium Chloride Mini Bag 100 ML IVPB SCH (16:54)
[2017-08-17 17:52] LABS: BUN/Creatinine Ratio 41 (6-26); Blood Urea Nitrogen 45 mg/dL (8-23); Calcium 8.9 mg/dL (8.6-10.3); Carbon Dioxide 27 mEq/L (23-29); Chloride 99 mEq/L (98-107); Glucose 201 mg/dL (70-105); Osmolality,Calculated 291 (280-300); Potassium 4.7 mEq/L (3.5-5.1); Sodium 132 mEq/L (136-145); eGFR For African Americans > 60 (> 60); eGFR For Non-African Americans > 60 (> 60)
[2017-08-17] MEDS: Melatonin 3 MG TABLET PO PRN (22:29)
[2017-08-18] MEDS: MethylPREDNISolone 40 MG/ML VIAL IVP SCH ×4 (00:20→23:46)
[2017-08-18] MEDS: Piperacillin/Tazobactam 3.375 GM in 0.9 % Sodium Chloride Mini Bag 100 ML IVPB SCH ×4 (00:20→23:46)
[2017-08-18] MEDS: Ipratropium/Albuterol Neb 3 ML IH SCH ×6 (03:32→23:11)
[2017-08-18] MEDS: Budesonide/Formoterol 160/4.5 MDI IH SCH ×2 (07:31→19:42)
--- NOTE | 2017-08-18 07:35 | Pulmonology Progress Note ---
Date of Encounter: 08/18/17 Time of Encounter: 07:20 Assessment and Plan (1) Acute and chronic respiratory failure Current Visit: No Status: Acute Patient is nearing his home O2 requirements this time the presentation more of acute on chronic systolic heart failure rather than COPD exacerbation patient is slowly getting better . Qualifiers: Respiratory failure complication: hypoxia Qualified Code(s): J96.21 - Acute and chronic respiratory failure with hypoxia (2) Acute on chronic systolic CHF (congestive heart failure) Current Visit: Yes Status: Acute Patient tolerated the diuresis well patient should be salt and water restriction currently he is not on salt restriction counseled about the importance of salt and water restriction . (3) COPD (chronic obstructive pulmonary disease) Current Visit: Yes Status: Acute To continue the steroid taper over 3 weeks , to continue duoneb and symbicort on discharge will need to keep the appointment with [place] [facility] . 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 (6) Pneumonia Current Visit: Yes Status: Acute will start descalating antibiotics will leave to the primary team will hold off bronchoscopy as patient is getting better with diuresis. Qualifiers: Pneumonia type: due to unspecified organism Laterality: unspecified laterality Lung location: unspecified part of lung Qualified Code(s): J18.9 - Pneumonia, unspecified organism Subjective Principal diagnosis: new onset afib, CHF Interval history: Patient says he is feeling slightly better than yesterday had some diuresis , denies any increased cough or sputum production , denies any chest pain or tightness . He says his pedal edema is getting better Objective PUL Vital signs: Last Vital Signs Temp 97.6 F 08/18/17 06:45 Pulse 103 08/18/17 06:45 Resp 14 08/18/17 07:33 BP 126/82 08/18/17 06:45 Pulse Ox 95 08/18/17 07:33 Auscultation: bilateral: other (scattered crackles ) Extremities: edema Results - Laboratory Findings CBC and BMP: 08/18/17 07:36 08/18/17 07:36 PT/INR, D-dimer PT 11.1 Seconds (9.4-12.1) 08/10/17 15:42 Abnormal lab findings: Abnormal lab results WBC 15.7 K/mcL (4.3-11.1) H 08/17/17 06:31 Hgb 11.0 g/dL (12.9-16.9) L 08/17/17 06:31 Hct 35.0 % (37.5-50.1) L 08/17/17 06:31 MCV 78.5 fL (83.0-100.0) L 08/17/17 06:31 MCH 24.7 pg (28.0-33.3) L 08/17/17 06:31 MCHC 31.4 g/dL (31.6-35.5) L 08/17/17 06:31 RDW 16.4 % (11.5-14.5) H 08/17/17 06:31 Plt Count 121 K/mcL (140-400) L 08/17/17 06:31 Neutrophils # 15.1 K/mcL (1.6-8.9) H 08/17/17 06:31 Lymphocytes # 0.1 K/mcL (0.6-4.6) L 08/17/17 06:31 Hyposegmented Neuts Present (Not Present) A 08/17/17 06:31 Toxic Granulation Present (Not Present) A 08/17/17 06:31 Platelet Estimate Decreased (Normal) L 08/17/17 06:31 Large Platelets Present (Not Present) A 08/17/17 06:31 Microcytosis Present (Not Present) A 08/17/17 06:31 APTT 22.5 Seconds (26.0-36.0) L 08/10/17 15:42 Sodium 132 mEq/L (136-145) L 08/17/17 17:08 BUN 45 mg/dL (8-23) H 08/17/17 17:08 BUN/Creatinine Ratio 41 (6-26) H 08/17/17 17:08 Glucose 201 mg/dL (70-105) H 08/17/17 17:08 Phosphorus 2.5 mg/dL (2.7-4.5) L 08/15/17 05:51 Creatine Kinase 21 Units/L (30-223) L 08/13/17 05:15 Troponin I 0.05 ng/mL (< 0.04) H* 08/11/17 06:23 B-Natriuretic Peptide 905 pg/mL (Less than 100) H 08/11/17 00:31 Serum Total Protein 5.1 g/dL (6.4-8.9) L 08/11/17 00:31 Total Protein (PEP) 4.90 g/dL (6.00-8.30) L 08/13/17 05:15 Albumin 3.0 g/dL (3.5-5.7) L 08/11/17 00:31 Albumin (PEP) 2.62 g/dL (3.75-5.01) L 08/13/17 05:15 Globulin 2.1 g/dL (2.4-3.5) L 08/11/17 00:31 Procalcitonin 0.20 ng/mL (<=0.10) H 08/14/17 06:49 Urine Clarity Cloudy (Clear) A 08/13/17 17:55 Urine Protein 30 mg/dL (Neg-Trace) H 08/13/17 17:55 Urine Blood Large (Negative) H 08/13/17 17:55 Ur Leukocyte Esterase Small (Negative) H 08/13/17 17:55 Urine Microscopic RBC TNTC per hpf (0-3) H 08/13/17 17:55 Urine Microscopic WBC 5-15 per hpf (0-3) H 08/13/17 17:55 Ur Squamous Epith Cells Moderate per lpf (None-Few) H 08/13/17 17:55 IgG 532 mg/dL (768-1632) L 08/13/17 05:15 - Clinical Findings Intake & Output: Intake & Output 08/17/17 08/17/17 08/18/17 15:59 23:59 07:59 Intake Total 990 / 990 350 / 350 700 / 700 Output Total 400 / 400 1250 / 1250 1300 / 1300 Balance 590 / 590 -900 / -900 -600 / -600 Weight 83.5 kg - VTE Documentation of Mechanical Device: Graduated compression elastic hosiery Consult Discharge Plan - Plan Referrals: Jenn Luna MD [Primary Care Provider] - 08/16/17 1:45 pm Prescriptions: Apixaban [Eliquis] 5 mg PO BID #60 tablet
[2017-08-18] MEDS ORDERED: Aminoglycoside Consult 1 EACH MC ONE (07:41)
[2017-08-18 08:29] LABS: BUN/Creatinine Ratio 39 (6-26); Blood Urea Nitrogen 45 mg/dL (8-23); Calcium 8.3 mg/dL (8.6-10.3); Carbon Dioxide 28 mEq/L (23-29); Chloride 100 mEq/L (98-107); Glucose 138 mg/dL (70-105); Osmolality,Calculated 290 (280-300); Potassium 4.3 mEq/L (3.5-5.1); Sodium 133 mEq/L (136-145); eGFR For African Americans > 60 (> 60); eGFR For Non-African Americans > 60 (> 60)
[2017-08-18 08:37] LABS: Basophils % 0.1 %; Hematocrit 35.1 % (37.5-50.1); Hemoglobin 11.1 g/dL (12.9-16.9); Lymphocytes # 0.1 K/mcL (0.6-4.6); Lymphocytes % 0.8 %; Mean Corpuscular HGB Conc 31.6 g/dL (31.6-35.5); Mean Corpuscular Hemoglobin 24.8 pg (28.0-33.3); Mean Corpuscular Volume 78.5 fL (83.0-100.0); Mean Platelet Volume 10.1 fL (9.4-12.4); Monocytes # 0.5 K/mcL (0.0-1.3); Monocytes % 3.1 %; Platelet Count 124 K/mcL (140-400); Red Blood Count 4.47 M/mcL (4.19-5.50); Red Cell Distribution Width 16.3 % (11.5-14.5)
[2017-08-18 08:44] LABS: Neutrophils # 14.8 K/mcL (1.6-8.9)
[2017-08-18] MEDS: Metoprolol XL (24 HR) Succ 25 MG TAB.ER.24H PO SCH (08:45)
[2017-08-18] MEDS: Aspirin Enteric Coated 81 MG Tablet PO SCH (08:45)
[2017-08-18] MEDS: Apixaban 5 MG TABLET PO SCH ×2 (08:45→19:48)
[2017-08-18] MEDS: Furosemide 40 MG/4 ML VIAL IVP SCH ×2 (08:46→15:54)
[2017-08-18 09:18] LABS: Mycoplasma pneumoniae IgG 0.33 U/L (<=0.09)
[2017-08-18 09:36] LABS: Platelet Estimate Slight Decrease (Normal)
--- NOTE | 2017-08-18 18:04 | Internal Med Progress Note ---
Date of Encounter: 08/18/17 Time of Encounter: 18:04 - Subjective Interval history: Interval changes: His rate had been controlled until later in the day when he developed AFib with RVR. He had associated SOB. A 15 mg bolus of cardizem was given and a Cardizem drip was started. He was not c/o cp. -Assessment and plan (1) New onset a-fib Patient converted to sinus rhythm Rate controlled with Metoprolol earlier in the day He returned to Afib with RVR as noted above. Continue Eliquis (2) Systolic heart failure WANG and Lasix held because of TOM On metoprolol (3) TOM (acute kidney injury) Nephrology consulted UO is improved (4) COPD exacerbation: Symbicort Duo Nebs Q4H SoluMedrol Levaquin was changed to Vanc and Zosyn Complicated by underlying lung disease (Silicosis and Sarcoidosis) (5) Urinary retension: Scheduled for next voiding trial with Dr. Calvo Continue chronic Miles Comsult urology (6) RUL infiltrate Continue Vanc and Zosyn (7) Elevated troponin I level Demand ischemia per cardiology (8) Anemia Stable hgb Continue to follow (9) Hyperkalemia: Kayexalate given yesterday (10) Sarcoidosis and Silicosis Not on chronic steroid therapy at home SoluMedrol started for COPD exacerbation Consult pulmonary medicine (11) DVT prophylaxis Currently on Eliquis - Constitutional Vitals: Temp Pulse Resp BP Pulse Ox 97.7 F 101 16 129/74 98 08/18/17 15:20 08/18/17 15:20 08/18/17 15:43 08/18/17 15:20 08/18/17 15:43 General appearance: Present: mild distress, A&O X 3, pleasant Internal Medicine: Result - Labs CBC & Chem 7: 08/18/17 07:36 08/18/17 07:36 Labs: Short CBC 08/18/17 Range/Units 07:36 WBC 15.6 H (4.3-11.1) K/mcL Hgb 11.1 L (12.9-16.9) g/dL Hct 35.1 L (37.5-50.1) % Plt Count 124 L (140-400) K/mcL Neutrophils # 14.8 H (1.6-8.9) K/mcL BMP 08/18/17 07:36 Sodium 133 L Potassium 4.3 Chloride 100 Carbon Dioxide 28 BUN 45 H Creatinine 1.16 Glucose 138 H Calcium 8.3 L - ABG Interpretation ABG results: PT/INR, D-dimer PT 11.1 Seconds (9.4-12.1) 08/10/17 15:42 - VTE Documentation of Mechanical Device: Graduated compression elastic hosiery Consult Discharge Plan - Plan Referrals: Jenn Luna MD [Primary Care Provider] - 08/16/17 1:45 pm Prescriptions: Apixaban [Eliquis] 5 mg PO BID #60 tablet
[2017-08-18] MEDS ORDERED: 0.9 % Sodium Chloride 500 ML ONE (19:46)
[2017-08-18] MEDS: Melatonin 3 MG TABLET PO PRN (23:00)
[2017-08-19 01:42] LABS: Adenovirus Not Detected (Not Detect); Bordetella Pertussis Not Detected (Not Detect); Chlamydophila pneumoniae Not Detected (Not Detect); Coronavirus 229E Not Detected (Not Detect); Coronavirus HKU1 Not Detected (Not Detect); Coronavirus NL63 Not Detected (Not Detect); Coronavirus OC43 Not Detected (Not Detect); Human Metapneumovirus Not Detected (Not Detect); Human Rhinovirus/Enterovirus Not Detected (Not Detect); Influenza A Subtype 2009 H1 Not Detected (Not Detect); Influenza A Untypeable Not Detected (Not Detect); Influenza B Not Detected (Not Detect); Mycoplasma pneumoniae Not Detected (Not Detect); Parainfluenza Virus 1 Not Detected (Not Detect); Parainfluenza Virus 2 Not Detected (Not Detect); Parainfluenza Virus 3 Not Detected (Not Detect); Parainfluenza Virus 4 Not Detected (Not Detect); Respiratory Syncytial Virus Not Detected (Not Detect)
[2017-08-19] MEDS: Ipratropium/Albuterol Neb 3 ML IH SCH ×6 (03:50→23:05)
[2017-08-19] MEDS: Budesonide/Formoterol 160/4.5 MDI IH SCH ×2 (07:33→19:54)
[2017-08-19 07:39] LABS: Hematocrit 35.5 % (37.5-50.1); Hemoglobin 11.2 g/dL (12.9-16.9); Mean Corpuscular HGB Conc 31.5 g/dL (31.6-35.5); Mean Corpuscular Hemoglobin 24.6 pg (28.0-33.3); Mean Corpuscular Volume 77.9 fL (83.0-100.0); Mean Platelet Volume 9.8 fL (9.4-12.4); Platelet Count 116 K/mcL (140-400); Red Blood Count 4.56 M/mcL (4.19-5.50); Red Cell Distribution Width 16.5 % (11.5-14.5)
[2017-08-19 07:40] LABS: BUN/Creatinine Ratio 44 (6-26); Blood Urea Nitrogen 60 mg/dL (8-23); Calcium 8.3 mg/dL (8.6-10.3); Carbon Dioxide 32 mEq/L (23-29); Chloride 96 mEq/L (98-107); Glucose 148 mg/dL (70-105); Osmolality,Calculated 296 (280-300); Potassium 4.3 mEq/L (3.5-5.1); Sodium 133 mEq/L (136-145); eGFR For African Americans > 60 (> 60); eGFR For Non-African Americans 52 (> 60)
[2017-08-19] MEDS: MethylPREDNISolone 40 MG/ML VIAL IVP SCH (07:51)
[2017-08-19] MEDS: Furosemide 40 MG/4 ML VIAL IVP SCH ×2 (07:52→15:51)
[2017-08-19] MEDS: Piperacillin/Tazobactam 3.375 GM in 0.9 % Sodium Chloride Mini Bag 100 ML IVPB SCH ×3 (07:52→23:49)
[2017-08-19] MEDS: Metoprolol XL (24 HR) Succ 25 MG TAB.ER.24H PO SCH (09:22)
[2017-08-19] MEDS: Aspirin Enteric Coated 81 MG Tablet PO SCH (09:22)
[2017-08-19] MEDS: Apixaban 5 MG TABLET PO SCH ×2 (09:23→20:37)
[2017-08-19 12:34] LABS: Neutrophils # 15.7 K/mcL (1.6-8.9)
[2017-08-19 12:35] LABS: Platelet Estimate Slight Decrease (Normal)
--- NOTE | 2017-08-19 13:15 | Pulmonology Progress Note ---
Date of Encounter: 08/19/17 Time of Encounter: 13:10 Assessment and Plan (1) Acute and chronic respiratory failure Current Visit: No Status: Acute Patient is nearing his home O2 requirements this time the presentation more of acute on chronic systolic heart failure rather than COPD exacerbation patient is slowly getting better . Will do gentle diuresis as tolerated Qualifiers: Respiratory failure complication: hypoxia Qualified Code(s): J96.21 - Acute and chronic respiratory failure with hypoxia (2) Acute on chronic systolic CHF (congestive heart failure) Current Visit: Yes Status: Acute Patient tolerated the diuresis well patient should be salt and water restriction currently he is not on salt restriction counseled about the importance of salt and water restriction . 08/19 Patient is responding well to diuresis will need gentle diuresis with salt restriction noted bump in serum creatinine might be a block to continue with diuresis (3) COPD (chronic obstructive pulmonary disease) Current Visit: Yes Status: Acute To continue the steroid taper over 3 weeks , to continue duoneb and symbicort on discharge will need to keep the appointment with [place] [facility] . 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 (6) Pneumonia Current Visit: Yes Status: Acute will start descalating antibiotics will leave to the primary team will hold off bronchoscopy as patient is getting better with diuresis. Qualifiers: Pneumonia type: due to unspecified organism Laterality: unspecified laterality Lung location: unspecified part of lung Qualified Code(s): J18.9 - Pneumonia, unspecified organism (7) Lung nodule Current Visit: Yes Status: Acute New Lung nodule which was found in july has decreased favors beingn etiology will get PET CT scan as there was few opacities in the middle of chronic scarring , non small cell ca can start from chronic scarring . Subjective Principal diagnosis: new onset afib, CHF Interval history: Patient says he is feeling slightly better than yesterday had some diuresis , denies any increased cough or sputum production , denies any chest pain or tightness . He says his pedal edema is getting better 3 Patient is sitting in chair feeling his shortness of breadth is lot better , but still has lot of pedal edema still has atrial fibrillation with episodes of RVR . Objective PUL Vital signs: Last Vital Signs Temp 97.8 F 08/19/17 11:18 Pulse 80 08/19/17 11:18 Resp 16 08/19/17 11:30 BP 111/69 08/19/17 11:18 Pulse Ox 95 08/19/17 11:30 Auscultation: bilateral: other (bilateral scattered very fine crackles with no much wheeze ) Cardiovascular: irregular rhythm Extremities: edema Results - Laboratory Findings CBC and BMP: 08/19/17 06:51 08/19/17 06:51 PT/INR, D-dimer PT 11.1 Seconds (9.4-12.1) 08/10/17 15:42 Abnormal lab findings: Abnormal lab results WBC 15.7 K/mcL (4.3-11.1) H 08/19/17 06:51 Hgb 11.2 g/dL (12.9-16.9) L 08/19/17 06:51 Hct 35.5 % (37.5-50.1) L 08/19/17 06:51 MCV 77.9 fL (83.0-100.0) L 08/19/17 06:51 MCH 24.6 pg (28.0-33.3) L 08/19/17 06:51 MCHC 31.5 g/dL (31.6-35.5) L 08/19/17 06:51 RDW 16.5 % (11.5-14.5) H 08/19/17 06:51 Plt Count 116 K/mcL (140-400) L 08/19/17 06:51 Neutrophils # 15.7 K/mcL (1.6-8.9) H 08/19/17 06:51 Lymphocytes # 0.1 K/mcL (0.6-4.6) L 08/18/17 07:36 Hyposegmented Neuts Present (Not Present) A 08/17/17 06:31 Toxic Granulation Present (Not Present) A 08/17/17 06:31 Platelet Estimate Slight Decrease (Normal) L 08/19/17 06:51 Large Platelets Present (Not Present) A 08/17/17 06:31 Microcytosis Present (Not Present) A 08/17/17 06:31 APTT 22.5 Seconds (26.0-36.0) L 08/10/17 15:42 Sodium 133 mEq/L (136-145) L 08/19/17 06:51 Chloride 96 mEq/L (98-107) L 08/19/17 06:51 Carbon Dioxide 32 mEq/L (23-29) H 08/19/17 06:51 BUN 60 mg/dL (8-23) H 08/19/17 06:51 Creatinine 1.36 mg/dL (0.70-1.30) H 08/19/17 06:51 Est GFR (Non-Af Amer) 52 (> 60) L 08/19/17 06:51 BUN/Creatinine Ratio 44 (6-26) H 08/19/17 06:51 Glucose 148 mg/dL (70-105) H 08/19/17 06:51 Calcium 8.3 mg/dL (8.6-10.3) L 08/19/17 06:51 Phosphorus 2.5 mg/dL (2.7-4.5) L 08/15/17 05:51 Creatine Kinase 21 Units/L (30-223) L 08/13/17 05:15 Troponin I 0.06 ng/mL (< 0.04) H* 08/19/17 00:30 B-Natriuretic Peptide 905 pg/mL (Less than 100) H 08/11/17 00:31 Serum Total Protein 5.1 g/dL (6.4-8.9) L 08/11/17 00:31 Total Protein (PEP) 4.90 g/dL (6.00-8.30) L 08/13/17 05:15 Albumin 3.0 g/dL (3.5-5.7) L 08/11/17 00:31 Albumin (PEP) 2.62 g/dL (3.75-5.01) L 08/13/17 05:15 Globulin 2.1 g/dL (2.4-3.5) L 08/11/17 00:31 Procalcitonin 0.20 ng/mL (<=0.10) H 08/14/17 06:49 Urine Clarity Cloudy (Clear) A 08/13/17 17:55 Urine Protein 30 mg/dL (Neg-Trace) H 08/13/17 17:55 Urine Blood Large (Negative) H 08/13/17 17:55 Ur Leukocyte Esterase Small (Negative) H 08/13/17 17:55 Urine Microscopic RBC TNTC per hpf (0-3) H 08/13/17 17:55 Urine Microscopic WBC 5-15 per hpf (0-3) H 08/13/17 17:55 Ur Squamous Epith Cells Moderate per lpf (None-Few) H 08/13/17 17:55 Vancomycin Trough 20.6 mcg/mL (10-20) H* 08/18/17 06:42 IgG 532 mg/dL (768-1632) L 08/13/17 05:15 Mycoplasma pneumon IgG 0.33 U/L (<=0.09) H 08/14/17 06:49 - Clinical Findings Intake & Output: Intake & Output 08/18/17 08/19/17 08/19/17 23:59 07:59 15:59 Intake Total 624 / 624 178 / 178 961 / 961 Output Total 1700 / 1700 600 / 600 575 / 575 Balance -1076 / -1076 -422 / -422 386 / 386 Weight 84.5 kg - VTE Documentation of Mechanical Device: Graduated compression elastic hosiery Consult Discharge Plan - Plan Referrals: Jenn Luna MD [Primary Care Provider] - 08/16/17 1:45 pm Prescriptions: Apixaban [Eliquis] 5 mg PO BID #60 tablet
[2017-08-19] MEDS ORDERED: predniSONE 20 MG TABLET PO SCH (17:00)
[2017-08-19] MEDS: Melatonin 3 MG TABLET PO PRN (20:36)
--- NOTE | 2017-08-19 22:49 | Internal Med Progress Note ---
Date of Encounter: 08/19/17 Time of Encounter: 14:20 - Subjective Interval history: Interval changes: 08/18/2017 His rate had been controlled until later in the day when he developed AFib with RVR. He had associated SOB. A 15 mg bolus of cardizem was given and a Cardizem drip was started. He was not c/o cp. 08/19/2017: He was again weaned off the cardizem drip early today and by late evening became very tachycardic again. He is breathing more comfortably LE edema is worse than previously noted -Assessment and plan (1) New onset a-fib Patient converted to sinus rhythm Rate controlled with Metoprolol earlier in the day He returned to Afib with RVR as noted above. Increase metoprlol XL to 100 daily Continue Eliquis (2) Systolic heart failure WANG and Lasix held because of TOM On metoprolol (3) TOM (acute kidney injury) Nephrology consulted UO is improved (4) COPD exacerbation: Symbicort Duo Nebs Q4H SoluMedrol Levaquin was changed to Vanc and Zosyn Complicated by underlying lung disease (Silicosis and Sarcoidosis) (5) Urinary retension: Scheduled for next voiding trial with Dr. 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 Absent: lymphadenopathy - Respiratory Respiratory exam: Present: CTAB. Absent: accessory muscle use, rales, rhonchi, wheezes - Cardiovascular Cardiovascular exam: Present: RRR, +S1, +S2. Absent: diastolic murmur, gallop, rubs, systolic murmur - GI/Abdominal GI/Abdominal exam: Present: normal bowel sounds, soft, no peritoneal signs. Absent: distended, tenderness - Extremities Exam Extremities exam: Present: warm, radial pulses palpable and symmetrical. Absent : calf tenderness, cyanotic, pedal edema - Neurological Exam Neurological exam: Present: CN II-XII intact, oriented X3, no focal deficits. Absent: pronater drift, facial droop, speech deficit - Psychiatric Psychiatric exam: Present: anxious, normal mood - Skin Skin exam: Present: dry, intact Internal Medicine: Result - Labs CBC & Chem 7: 08/19/17 06:51 08/19/17 06:51 Labs: Short CBC 08/19/17 Range/Units 06:51 WBC 15.7 H (4.3-11.1) K/mcL Hgb 11.2 L (12.9-16.9) g/dL Hct 35.5 L (37.5-50.1) % Plt Count 116 L (140-400) K/mcL Neutrophils # 15.7 H (1.6-8.9) K/mcL BMP 08/19/17 06:51 Sodium 133 L Potassium 4.3 Chloride 96 L Carbon Dioxide 32 H BUN 60 H Creatinine 1.36 H Glucose 148 H Calcium 8.3 L Cardiac Enzymes 08/19/17 Range/Units 00:30 Troponin I 0.06 H* (< 0.04) ng/mL - ABG Interpretation ABG results: PT/INR, D-dimer PT 11.1 Seconds (9.4-12.1) 08/10/17 15:42 - VTE Documentation of Mechanical Device: Graduated compression elastic hosiery Consult Discharge Plan - Plan Referrals: Jenn Luna MD [Primary Care Provider] - 08/16/17 1:45 pm Prescriptions: Apixaban [Eliquis] 5 mg PO BID #60 tablet
[2017-08-20] MEDS: Ipratropium/Albuterol Neb 3 ML IH SCH ×6 (04:14→23:43)
[2017-08-20] MEDS: Budesonide/Formoterol 160/4.5 MDI IH SCH ×2 (07:49→20:46)
[2017-08-20 08:39] LABS: Immunoglobulin A 189 mg/dL (68-408); Immunoglobulin G Subclass 1 311 mg/dL (240-1118); Immunoglobulin G Subclass 2 119 mg/dL (124-549); Immunoglobulin G Subclass 3 64 mg/dL (21-134); Immunoglobulin G Subclass 4 <1 mg/dL (1-123)
--- NOTE | 2017-08-20 08:50 | Event Note ---
Date of Encounter: 08/20/17 Time of Encounter: 08:48 - Cardiology Event Note Cardiology reconsulted by primary team due to recurrent PAF with RVR episodes requiring intermittent cardizem bolus and gtt. BB was increased yesterday-- Toprol XL 100mg daily. Asked to review medications for any further recommendations. Discussed and reviewed with Dr. Álvaro Edwards, recommend adding PO Cardizem CD 120mg daily. Will add with first dose now. Please reconsult PRN.
[2017-08-20 09:18] LABS: Basophils % 0.1 %; Hematocrit 35.1 % (37.5-50.1); Hemoglobin 11.2 g/dL (12.9-16.9); Immature Granulocytes % 0.4 % (0-4); Lymphocytes # 0.2 K/mcL (0.6-4.6); Lymphocytes % 1.5 %; Mean Corpuscular HGB Conc 31.9 g/dL (31.6-35.5); Mean Corpuscular Hemoglobin 24.9 pg (28.0-33.3); Mean Platelet Volume 10.3 fL (9.4-12.4); Monocytes # 0.9 K/mcL (0.0-1.3); Monocytes % 6.2 %; Neutrophils # 13.6 K/mcL (1.6-8.9); Platelet Count 113 K/mcL (140-400); Red Cell Distribution Width 16.7 % (11.5-14.5); Segmented Neutrophils % 91.8 %
--- NOTE | 2017-08-20 09:20 | Pulmonology Progress Note ---
Date of Encounter: 08/20/17 Time of Encounter: 09:00 Assessment and Plan (1) Acute and chronic respiratory failure Current Visit: No Status: Acute Patient is nearing his home O2 requirements this time the presentation more of acute on chronic systolic heart failure rather than COPD exacerbation patient is slowly getting better . Will do gentle diuresis as tolerated 08/20 Patient is back to home oxygen requirements told him he will have shortness of breadth because of chronic lung disease , systolic heart failure which leads to on and off hydrostatic pulmonary edema which is worsened by Atrial fibrillation with RVR Qualifiers: Respiratory failure complication: hypoxia Qualified Code(s): J96.21 - Acute and chronic respiratory failure with hypoxia (2) Acute on chronic systolic CHF (congestive heart failure) Current Visit: Yes Status: Acute Patient tolerated the diuresis well patient should be salt and water restriction currently he is not on salt restriction counseled about the importance of salt and water restriction . 08/19 Patient is responding well to diuresis will need gentle diuresis with salt restriction noted bump in serum creatinine might be a block to continue with diuresis 08/20 to continue diuresis as tolerated ,dosage per primary team as he is nearing euvolemia (3) COPD (chronic obstructive pulmonary disease) Current Visit: Yes Status: Acute To continue the steroid taper over 3 weeks , to continue duoneb and symbicort on discharge will need to keep the appointment with [place] [facility] . 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 (6) Pneumonia Current Visit: Yes Status: Acute will start descalating antibiotics will leave to the primary team will hold off bronchoscopy as patient is getting better with diuresis. Qualifiers: Pneumonia type: due to unspecified organism Laterality: unspecified laterality Lung location: unspecified part of lung Qualified Code(s): J18.9 - Pneumonia, unspecified organism (7) Lung nodule Current Visit: Yes Status: Acute New Lung nodule which was found in july has decreased favors beingn etiology will get PET CT scan as there was few opacities in the middle of chronic scarring , non small cell ca can start from chronic scarring . Will follow up with imaging as an outpatient . Subjective Principal diagnosis: new onset afib, CHF Interval history: Patient says he is feeling slightly better than yesterday had some diuresis , denies any increased cough or sputum production , denies any chest pain or tightness . He says his pedal edema is getting better 08/19 Patient is sitting in chair feeling his shortness of breadth is lot better , but still has lot of pedal edema still has atrial fibrillation with episodes of RVR . 08/20 Patient lying in the bed said he is feels tired today shortness of breadth is still there on exertion denies any increased cough or sputum production , denies any hemoptysis Objective PUL Vital signs: Last Vital Signs Temp 97.2 F L 08/20/17 07:38 Pulse 80 08/20/17 07:38 Resp 18 08/20/17 07:38 BP 112/74 08/20/17 07:38 Pulse Ox 94 08/20/17 07:38 Auscultation: bilateral: diminished breath sounds (basilar diminished breadth sounds ), wheezes (minimal scattered wheeze ) Extremities: edema Results - Laboratory Findings CBC and BMP: 08/20/17 08:05 08/20/17 08:05 PT/INR, D-dimer PT 11.1 Seconds (9.4-12.1) 08/10/17 15:42 Abnormal lab findings: Abnormal lab results WBC 15.7 K/mcL (4.3-11.1) H 08/19/17 06:51 Hgb 11.2 g/dL (12.9-16.9) L 08/19/17 06:51 Hct 35.5 % (37.5-50.1) L 08/19/17 06:51 MCV 77.9 fL (83.0-100.0) L 08/19/17 06:51 MCH 24.6 pg (28.0-33.3) L 08/19/17 06:51 MCHC 31.5 g/dL (31.6-35.5) L 08/19/17 06:51 RDW 16.5 % (11.5-14.5) H 08/19/17 06:51 Plt Count 116 K/mcL (140-400) L 08/19/17 06:51 Neutrophils # 15.7 K/mcL (1.6-8.9) H 08/19/17 06:51 Lymphocytes # 0.1 K/mcL (0.6-4.6) L 08/18/17 07:36 Hyposegmented Neuts Present (Not Present) A 08/17/17 06:31 Toxic Granulation Present (Not Present) A 08/17/17 06:31 Platelet Estimate Slight Decrease (Normal) L 08/19/17 06:51 Large Platelets Present (Not Present) A 08/17/17 06:31 Microcytosis Present (Not Present) A 08/17/17 06:31 APTT 22.5 Seconds (26.0-36.0) L 08/10/17 15:42 Sodium 133 mEq/L (136-145) L 08/19/17 06:51 Chloride 96 mEq/L (98-107) L 08/19/17 06:51 Carbon Dioxide 32 mEq/L (23-29) H 08/19/17 06:51 BUN 60 mg/dL (8-23) H 08/19/17 06:51 Creatinine 1.36 mg/dL (0.70-1.30) H 08/19/17 06:51 Est GFR (Non-Af Amer) 52 (> 60) L 08/19/17 06:51 BUN/Creatinine Ratio 44 (6-26) H 08/19/17 06:51 Glucose 148 mg/dL (70-105) H 08/19/17 06:51 Calcium 8.3 mg/dL (8.6-10.3) L 08/19/17 06:51 Phosphorus 2.5 mg/dL (2.7-4.5) L 08/15/17 05:51 Creatine Kinase 21 Units/L (30-223) L 08/13/17 05:15 Troponin I 0.06 ng/mL (< 0.04) H* 08/19/17 00:30 B-Natriuretic Peptide 905 pg/mL (Less than 100) H 08/11/17 00:31 Serum Total Protein 5.1 g/dL (6.4-8.9) L 08/11/17 00:31 Total Protein (PEP) 4.90 g/dL (6.00-8.30) L 08/13/17 05:15 Albumin 3.0 g/dL (3.5-5.7) L 08/11/17 00:31 Albumin (PEP) 2.62 g/dL (3.75-5.01) L 08/13/17 05:15 Globulin 2.1 g/dL (2.4-3.5) L 08/11/17 00:31 Procalcitonin 0.20 ng/mL (<=0.10) H 08/14/17 06:49 Urine Clarity Cloudy (Clear) A 08/13/17 17:55 Urine Protein 30 mg/dL (Neg-Trace) H 08/13/17 17:55 Urine Blood Large (Negative) H 08/13/17 17:55 Ur Leukocyte Esterase Small (Negative) H 08/13/17 17:55 Urine Microscopic RBC TNTC per hpf (0-3) H 08/13/17 17:55 Urine Microscopic WBC 5-15 per hpf (0-3) H 08/13/17 17:55 Ur Squamous Epith Cells Moderate per lpf (None-Few) H 08/13/17 17:55 Vancomycin Trough 20.6 mcg/mL (10-20) H* 08/18/17 06:42 IgG 532 mg/dL (768-1632) L 08/13/17 05:15 IgG2 119 mg/dL (124-549) L 08/17/17 17:08 IgG4 <1 mg/dL (1-123) L 08/17/17 17:08 Mycoplasma pneumon IgG 0.33 U/L (<=0.09) H 08/14/17 06:49 - Clinical Findings Intake & Output: Intake & Output 08/19/17 08/20/17 08/20/17 23:59 07:59 15:59 Intake Total 992 / 992 237 / 237 Output Total 1200 / 1200 750 / 750 Balance -208 / -208 -513 / -513 Weight 68.05 kg - VTE Documentation of Mechanical Device: Graduated compression elastic hosiery Consult Discharge Plan - Plan Referrals: Jenn Luna MD [Primary Care Provider] - 08/16/17 1:45 pm Prescriptions: Apixaban [Eliquis] 5 mg PO BID #60 tablet
[2017-08-20 09:30] LABS: Calcium 8.5 mg/dL (8.6-10.3); Potassium 3.8 mEq/L (3.5-5.1)
[2017-08-20] MEDS: predniSONE 20 MG TABLET PO SCH (09:44)
[2017-08-20] MEDS: Apixaban 5 MG TABLET PO SCH ×2 (09:44→21:41)
[2017-08-20] MEDS: Aspirin Enteric Coated 81 MG Tablet PO SCH (09:44)
[2017-08-20] MEDS: Diltiazem CD (24hr) 120 MG CAPSULE PO SCH (09:45)
[2017-08-20] MEDS: Piperacillin/Tazobactam 3.375 GM in 0.9 % Sodium Chloride Mini Bag 100 ML IVPB SCH ×2 (09:45→16:55)
[2017-08-20] MEDS: Metoprolol XL (24 HR) Succ 50 MG TAB.ER.24H PO SCH (09:45)
[2017-08-20] MEDS: Furosemide 20 MG/2 ML VIAL IVP SCH ×2 (09:59→16:55)
[2017-08-20 14:23] LABS: Bilirubin,Urine Negative (Negative); Blood,Urine Large (Negative); Clarity,Urine Clear (Clear); Color,Urine Yellow (Yellow); Glucose,Urine (UA) Normal (Normal); Ketones,Urine Negative (Negative); Leukocyte Esterase,Urine Negative (Negative); Nitrite,Urine Negative (Negative); Protein,Urine Trace mg/dL (Neg-Trace); Specific Gravity,Urine 1.024 (1.010-1.025); Urobilinogen,Urine Normal (Normal)
[2017-08-20 14:25] LABS: Bacteria,Urine None Seen per hpf (None-Few); Hyaline Casts,Urine None Seen per lpf (None-Few); RBC,Urine TNTC per hpf (0-3); Squamous Epithelial Cell,Urine Few per lpf (None-Few)
--- NOTE | 2017-08-20 17:44 | Internal Med Progress Note ---
Date of Encounter: 08/20/17 Time of Encounter: 08:35 - Subjective Interval history: Interval changes: 08/18/2017 His rate had been controlled until later in the day when he developed AFib with RVR. He had associated SOB. A 15 mg bolus of cardizem was given and a Cardizem drip was started. He was not c/o cp. 08/19/2017: He was again weaned off the cardizem drip early today and by late evening became very tachycardic again. He is breathing more comfortably LE edema is worse than previously noted Trace of pink blood in Miles cath 08/20/2017: Yesterday Metoprolol-XL dose increased to 100 mg daily after episode of sustained A-Fib with RVR and rates in 150-160 range. Tachycardic again this am with rates in the 120-130 range. Cardiology asked to see him again and they added Cardizem-CD 120mg daily He was to have Miles catheter removed in Urology office this week so Urology called and they will remove it Tuesday. Pt's daughter upset/concerned about why a Cardiac MRI hasn't been ordered. She was told that there has been no mention of a Cardiac MRI by cardiology and this order would likely come from cardiology if indicated. He does have sarcoidosis, but is does not appear active. Apparently she contacted the patient advocate upset that it has not been ordered. Unless cardiology is concerned about cardiac sarcoidosis or another infiltrative process there does not appear to be an indication for this test. -Assessment and plan (1) New onset a-fib Patient converted to sinus rhythm Rate controlled with Metoprolol earlier in the day He returned to Afib with RVR bit was rate controlled until yesterday. Metoprlol XL increased to 100 mg daily yesterday Today Cardizem-CD started in addition to Metoprolol Continue Eliquis (2) Systolic heart failure WANG and Lasix held because of TOM (3) TOM (acute kidney injury) Nephrology consulted UO is improved (4) COPD exacerbation: Symbicort Duo Nebs Q4H SoluMedrol (5) Urinary retension: Dr. 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 Medicine. (12) DVT prophylaxis Currently on Eliquis - Constitutional Vitals: Temp Pulse Resp BP Pulse Ox 97.8 F 86 18 124/66 95 08/20/17 16:32 08/20/17 16:32 08/20/17 16:32 08/20/17 16:32 08/20/17 16:32 General appearance: Present: A&O X 3, pleasant, underweight, answers questions appropriately - Head Head exam: Present: atraumatic, normocephalic - Eye Eye exam: Present: PERRL, conjuntiva pink, sclera anicteric Pupils: Present: PERRL - ENT ENT exam: Present: mucous membranes moist - Neck Neck exam general surgery: Present: supple, trachea midline. Absent: lymphadenopathy, nuchal rigidity, thyromegaly - Respiratory Respiratory exam: Present: CTAB. Absent: accessory muscle use, rales, rhonchi, wheezes - Cardiovascular Cardiovascular exam: Present: irregular rhythm, +S1, +S2, tachycardia. Absent: diastolic murmur, gallop, RRR, rubs, systolic murmur - GI/Abdominal GI/Abdominal exam: Present: normal bowel sounds, soft, no peritoneal signs. Absent: distended, guarding, rebound, tenderness - Extremities Exam Extremities exam: Present: pedal edema, warm, radial pulses palpable and symmetrical. Absent: calf tenderness, cyanotic - Neurological Exam Neurological exam: Present: CN II-XII intact, oriented X3, no focal deficits. Absent: pronater drift, facial droop, speech deficit - Skin Skin exam: Present: dry, intact Internal Medicine: Result - Labs CBC & Chem 7: 08/20/17 08:05 08/20/17 08:05 Labs: Short CBC 08/20/17 Range/Units 08:05 WBC 14.8 H (4.3-11.1) K/mcL Hgb 11.2 L (12.9-16.9) g/dL Hct 35.1 L (37.5-50.1) % Plt Count 113 L (140-400) K/mcL Neutrophils # 13.6 H (1.6-8.9) K/mcL BMP 08/20/17 08:05 Sodium 135 L Potassium 3.8 Chloride 95 L Carbon Dioxide 35 H BUN 64 H Creatinine 1.47 H Glucose 139 H Calcium 8.5 L Urine 08/20/17 Range/Units 13:20 Urine Color Yellow (Yellow) Urine Clarity Clear (Clear) Urine pH 6.0 (5.0-8.0) pH Units Ur Specific [place] 1.024 (1.010-1.025) Urine Protein Trace (Neg-Trace) mg/dL Urine Glucose (UA) Normal (Normal) mg/dL - ABG Interpretation ABG results: PT/INR, D-dimer PT 11.1 Seconds (9.4-12.1) 08/10/17 15:42 - VTE Documentation of Mechanical Device: Graduated compression elastic hosiery Consult Discharge Plan - Plan Referrals: Jenn Luna MD [Primary Care Provider] - 08/16/17 1:45 pm Prescriptions: Apixaban [Eliquis] 5 mg PO BID #60 tablet
[2017-08-20] MEDS: Melatonin 3 MG TABLET PO PRN (21:41)
[2017-08-21] MEDS: Piperacillin/Tazobactam 3.375 GM in 0.9 % Sodium Chloride Mini Bag 100 ML IVPB SCH ×3 (00:37→17:21)
[2017-08-21 01:51] LABS: Basophils % 0.1 %; Hematocrit 34.3 % (37.5-50.1); Hemoglobin 11.1 g/dL (12.9-16.9); Immature Granulocytes % 0.6 % (0-4); Lymphocytes # 0.2 K/mcL (0.6-4.6); Lymphocytes % 1.3 %; Mean Corpuscular HGB Conc 32.4 g/dL (31.6-35.5); Mean Corpuscular Hemoglobin 24.9 pg (28.0-33.3); Mean Corpuscular Volume 76.9 fL (83.0-100.0); Mean Platelet Volume 9.8 fL (9.4-12.4); Monocytes # 0.6 K/mcL (0.0-1.3); Monocytes % 4.7 %; Neutrophils # 12.6 K/mcL (1.6-8.9); Platelet Count 117 K/mcL (140-400); Red Blood Count 4.46 M/mcL (4.19-5.50); Red Cell Distribution Width 16.7 % (11.5-14.5); Segmented Neutrophils % 93.3 %
[2017-08-21 03:09] LABS: Platelet Estimate Normal (Normal)
[2017-08-21 03:13] LABS: Calcium 8.6 mg/dL (8.6-10.3)
[2017-08-21] MEDS: Ipratropium/Albuterol Neb 3 ML IH SCH ×6 (04:28→23:42)
--- NOTE | 2017-08-21 08:07 | Cardiology Progress Note ---
Date of Encounter: 08/21/17 Time of Encounter: 08:05 Assessment and Plan (1) New onset a-fib Current Visit: Yes Status: Acute New onset afib this admission. No previous history of afib. Patient was discharged with holter monitor last visit due to high risk for arrhythmias in the setting of sarcoidosis. Holter results 07/2017 showed PAF noted, 1% of time. Rare PVCs. Infrequent PACs. Continued PAF episodes during hospitalization. A-Fib currently, HR 90s. Denies chest pain or palpitations. AVG HR overnight 96bpm.x Continue Toprol XL at increased dose of 100mg daily. Pt had required intermittent cardizem bolus and gtt due to PAF. Added PO Cardizem CD 120mg daily. Started on eliquis by primary team. Agree with AC. CHADS VASc=2 for CHF and age. Cardiology signing off. Reconsult PRN. Follow-up as outpt in 2-3 weeks--already coordinated. (2) Acute on chronic systolic CHF (congestive heart failure) Current Visit: Yes Status: Acute Recently found to have mildly reduced EF. TTE 08/02/17- LVEF 45%. Mild LV systolic dysfunction. Possible regional variations although image quality is not optimal. Indeterminate diastolic function. Normal right ventricular structure and function. Aortic valve leaflet morphology not well visualized. Possibly a congenitally abnormal valve. Moderate aortic regurgitation. Mild mitral regurgitation. Mild-moderate tricuspid regurgitation. Moderate pulmonary hypertension. Ascending aorta not well visualized. No prior echo for comparison. Known sarcoidosis. Out-pt MRI recommended at last visit. Stress test completed at last visit for ischemic evaluation for new CMP. Stress test was negative for ischemia. ([facility] avoided due to needing work-up for lung mass in one month with pulmonology.) IV lasix was stopped earlier during stay due to TOM. Net negative [id number]. Improved symptoms. Continues to have ankle edema. Compression stockings ordered. PT/OT order per daughter request. Strict I&O and daily weights. CHF education. Suspect dietary indiscretions. Continue toprol XL. No aceI due to TOM SOB multifactoral. CXR shows new RLL lung consolidation. Consider PNA-Pt on levaquin. Cardiology will sign off at this time. Out-pt f/u and out -pt MRI will be coordinated by [facility]. On 08/19/17 our office was contacting [facility] to set up MRI, since they are not done at [facility]. (3) Sarcoidosis Current Visit: No Status: Chronic From cardiac perspective, outpt cardiac MRI being coordinated at [facility]. Discussion w patient/family: The assessment and plan as outlined above was discussed with the patient and/or family members who expressed understanding and agreement. All questions were answered. Thank you for involving us in the care of your patient. Please call with any questions. I will discuss all the above with Dr. Álvaro Edwards and make changes as necessary. Subjective Principal diagnosis: new onset afib, CHF Interval history: Reconsulted per event note yesterday. Cardizem CD 120mg daily was added in addition to being on Toprol XL 100mg daily. 12 hr tele AVG HR 96, AFib. Pt denies chest pain this AM. Reports dyspnea is "okay". Reports continued LE edema that has improved. Per review of hospitalist note yesterday, pt's daughter complained to pt advocate regarding a cardiac MRI and wanting one done. These are not completed at [facility]. Appears one has been ordered as outpt and is being set up at [facility]. Objective Vital Signs, Last 4 Hours Temp Pulse Resp BP Pulse Ox 08/21/17 06:53 97.7 F 93 15 122/81 94 08/21/17 04:28 17 97 Vital Signs Temp Pulse Resp BP Pulse Ox 08/21/17 06:53 97.7 F 93 15 122/81 94 08/21/17 04:28 17 97 08/21/17 04:03 97.9 F 86 20 123/83 93 08/20/17 21:45 95 08/20/17 20:46 17 94 08/20/17 20:35 97.4 F L 93 18 114/83 94 08/20/17 16:32 97.8 F 86 18 124/66 95 08/20/17 16:15 16 97 08/20/17 11:38 16 92 08/20/17 11:26 97.6 F 90 18 128/70 95 08/20/17 07:49 16 96 08/20/17 07:38 97.2 F L 80 18 112/74 94 Intake and Output 08/20/17 08/21/17 08/21/17 22:59 07:59 15:59 Intake Total Output Total Balance Intake: IV Fluids Zosyn 3.375 GM In 0.9 % Sodium Chloride (Mini-Bag +) 100 ML @ 25 mls/hr IVPB Q8HR [facility] Rx#: [id number] Oral Output: Urine Catheter Other: Meal Percent of Meal Consumed Weight Patient Weight 08/22/17 00:59 Weight 72 kg General: Conversant, No Apparent Distress HEENT: Atraumatic, Normocephaly, Mucus Membranes Moist Neck: Normal carotid pulses Cardiac: Other (irregularly irregular) Lungs: Normal Breath Sounds, No Wheeze, Rales, Rhonchi Neuro: Alert and responsive, No focal deficits noted Abdomen: Soft, Non-Tender Skin: No rashes noted on visualized skin Musculoskeletal: No Chest Wall Tenderness Extremities: Other (moderate BLE edema noted.) Results 08/21/17 01:27 08/21/17 01:27 Lab Results 08/20/17 08/20/17 08/21/17 08:05 08:05 01:27 WBC 14.8 H Hgb 11.2 L Hct 35.1 L Plt Count 113 L Sodium 135 L 133 L Potassium 3.8 4.0 Chloride 95 L 95 L Carbon Dioxide 35 H 32 H BUN 64 H 66 H Creatinine 1.47 H 1.46 H Glucose 139 H 161 H Calcium 8.5 L 8.6 08/21/17 01:27 WBC 13.5 H Hgb 11.1 L Hct 34.3 L Plt Count 117 L Sodium Potassium Chloride Carbon Dioxide BUN Creatinine Glucose Calcium Short CBC 08/21/17 08/20/17 Range/Units 01:27 08:05 WBC 13.5 H 14.8 H (4.3-11.1) K/mcL Hgb 11.1 L 11.2 L (12.9-16.9) g/dL Hct 34.3 L 35.1 L (37.5-50.1) % Plt Count 117 L 113 L (140-400) K/mcL Neutrophils # 12.6 H 13.6 H (1.6-8.9) K/mcL BMP 08/21/17 08/20/17 Range/Units 01:27 08:05 Sodium 133 L 135 L (136-145) mEq/L Potassium 4.0 3.8 (3.5-5.1) mEq/L Chloride 95 L 95 L (98-107) mEq/L Carbon Dioxide 32 H 35 H (23-29) mEq/L BUN 66 H 64 H (8-23) mg/dL Creatinine 1.46 H 1.47 H (0.70-1.30) mg/dL Glucose 161 H 139 H (70-105) mg/dL Calcium 8.6 8.5 L (8.6-10.3) mg/dL Urine 08/20/17 Range/Units 13:20 Urine Color Yellow (Yellow) Urine Clarity Clear (Clear) Urine pH 6.0 (5.0-8.0) pH Units Ur Specific [place] 1.024 (1.010-1.025) Urine Protein Trace (Neg-Trace) mg/dL Urine Glucose (UA) Normal (Normal) mg/dL Active Medications Acetaminophen (Tylenol) 650 mg PO Q6HR PRN PRN Reason: Mild Pain/Fever Stop: 02/09/18 18:28 Last Admin: 08/12/17 04:02 Dose: 650 mg Albuterol Sulfate (Proventil Neb) 2.5 mg IH Q2H PRN; Protocol PRN Reason: Shortness Of Breath/Wheezing Stop: 02/15/18 21:50 Albuterol/Ipratropium (Duoneb) 3 ml IH [id number] [facility] Stop: 02/09/18 20:01 Last Admin: 08/21/17 04:28 Dose: 3 ml Apixaban (Eliquis) 5 mg PO BID [facility] Stop: 02/09/18 21:01 Last Admin: 08/20/17 21:41 Dose: 5 mg Aspirin (Aspirin Ec) 81 mg PO DAILY [facility] Stop: 02/10/18 09:01 Last Admin: 08/20/17 09:44 Dose: 81 mg Atorvastatin Calcium (Lipitor) 40 mg PO HS [facility] Stop: 02/09/18 21:01 Last Admin: 08/20/17 21:41 Dose: 40 mg Budesonide/Formoterol Fumarate (Symbicort) 2 puff IH BIDR [facility] PRN Reason: Protocol Stop: 02/09/18 22:01 Last Admin: 08/20/17 20:46 Dose: 2 puff Calcium Carbonate (Tums) 500 mg PO Q6H PRN; Protocol PRN Reason: Heartburn Stop: 02/16/18 04:57 Last Admin: 08/20/17 21:41 Dose: 500 mg Diltiazem HCl (Cardizem Cd) 120 mg PO DAILY [facility] Stop: 02/19/18 09:01 Last Admin: 08/20/17 09:45 Dose: 120 mg Docusate Sodium (Colace) 100 mg PO BID PRN; Protocol PRN Reason: Constipation Stop: 02/10/18 17:24 Last Admin: 08/20/17 21:46 Dose: 100 mg Ferrous Sulfate (Ferrous Sulfate) 325 mg PO DAILY@0800 [facility] Stop: 02/10/18 08:01 Last Admin: 08/20/17 09:44 Dose: 325 mg Furosemide (Lasix) 20 mg IVP BIDDIURETIC [facility] Stop: 02/19/18 09:46 Last Admin: 08/20/17 16:55 Dose: 20 mg Guaifenesin (Mucinex) 600 mg PO BID PRN PRN Reason: Congestion Stop: 02/13/18 22:38 Last Admin: 08/15/17 09:43 Dose: 600 mg Piperacillin Sod/Tazobactam (Sod 3.375 gm/ Sodium Chloride) 100 mls @ 25 mls/ hr IVPB Q8HR [facility] Stop: 02/16/18 16:01 Last Admin: 08/21/17 00:37 Dose: 25 mls/hr Melatonin (Melatonin) 6 mg PO HS PRN PRN Reason: Insomnia Stop: 02/09/18 18:31 Last Admin: 08/20/17 21:41 Dose: 6 mg Metoprolol Succinate (Toprol Xl) 100 mg PO DAILY [facility] Stop: 02/19/18 09:01 Last Admin: 08/20/17 09:45 Dose: 100 mg Naloxone HCl (Narcan) 0.4 mg IVP Q2MIN PRN PRN Reason: SEE COMMENTS Stop: 02/09/18 18:28 Prednisone (Prednisone) 60 mg PO DAILY [facility] Stop: 02/19/18 09:01 Last Admin: 08/20/17 09:44 Dose: 60 mg Tamsulosin HCl (Flomax) 0.4 mg PO DAILY [facility] PRN Reason: Protocol Stop: 02/10/18 11:46 Last Admin: 08/20/17 09:45 Dose: 0.4 mg Tramadol HCl (Ultram) 50 mg PO Q6HR PRN PRN Reason: Moderate Pain Stop: 02/09/18 18:28 Last Admin: 08/20/17 13:38 Dose: 50 mg - Imaging and Cardiology Echo: report reviewed - EKG Interpretation EKG results cardiology: other (12 hr tele AVG HR 96, A-Fib, no significant pauses.) - VTE Documentation of Mechanical Device: Graduated compression elastic hosiery Consult Discharge Plan - Plan Referrals: Jenn Luna MD [Primary Care Provider] - 08/16/17 1:45 pm Prescriptions: Apixaban [Eliquis] 5 mg PO BID #60 tablet
[2017-08-21] MEDS: Budesonide/Formoterol 160/4.5 MDI IH SCH ×2 (08:44→19:55)
[2017-08-21] MEDS: Furosemide 20 MG/2 ML VIAL IVP SCH ×2 (09:25→17:28)
[2017-08-21] MEDS: Diltiazem CD (24hr) 120 MG CAPSULE PO SCH (09:26)
[2017-08-21] MEDS: Aspirin Enteric Coated 81 MG Tablet PO SCH (09:26)
[2017-08-21] MEDS: Metoprolol XL (24 HR) Succ 50 MG TAB.ER.24H PO SCH (09:26)
[2017-08-21] MEDS: Apixaban 5 MG TABLET PO SCH ×2 (09:26→21:26)
[2017-08-21] MEDS: predniSONE 20 MG TABLET PO SCH (09:27)
--- NOTE | 2017-08-21 09:56 | Pulmonology Progress Note ---
Date of Encounter: 08/21/17 Time of Encounter: 10:00 Assessment and Plan (1) Acute and chronic respiratory failure Current Visit: No Status: Acute Patient is nearing his home O2 requirements this time the presentation more of acute on chronic systolic heart failure rather than COPD exacerbation patient is slowly getting better . Will do gentle diuresis as tolerated Patient is back to home oxygen requirements told him he will have shortness of breadth because of chronic lung disease , systolic heart failure which leads to on and off hydrostatic pulmonary edema which is worsened by Atrial fibrillation with RVR . To ascertain O2 requirements from exercise Qualifiers: Respiratory failure complication: hypoxia Qualified Code(s): J96.21 - Acute and chronic respiratory failure with hypoxia (2) Acute on chronic systolic CHF (congestive heart failure) Current Visit: Yes Status: Acute Patient tolerated the diuresis well patient should be salt and water restriction currently he is not on salt restriction counseled about the importance of salt and water restriction . 08/19 Patient is responding well to diuresis will need gentle diuresis with salt restriction noted bump in serum creatinine might be a block to continue with diuresis 08/20 to continue diuresis as tolerated ,dosage per primary team as he is nearing euvolemia 08/21 will back off diuresis will need strict salt and water restriction with his bad COPD he is going to get shortness of breadth Cardiac MRI for finding the etiology of his heart failure with stress alex being negative (3) COPD (chronic obstructive pulmonary disease) Current Visit: Yes Status: Acute To continue the steroid taper over 3 weeks , to continue duoneb and symbicort on discharge will need to keep the appointment with [place] [facility] . Counseled about smoking cessation otherwise he is not going to better .. 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 (6) Pneumonia Current Visit: Yes Status: Acute will start descalating antibiotics will leave to the primary team will hold off bronchoscopy as patient is getting better with diuresis. Qualifiers: Pneumonia type: due to unspecified organism Laterality: unspecified laterality Lung location: unspecified part of lung Qualified Code(s): J18.9 - Pneumonia, unspecified organism (7) Lung nodule Current Visit: Yes Status: Acute New Lung nodule which was found in july has decreased favors beingn etiology will get PET CT scan as there was few opacities in the middle of chronic scarring , non small cell ca can start from chronic scarring . Will follow up with imaging as an outpatient . Will sign off call with questions Subjective Principal diagnosis: new onset afib, CHF Interval history: Patient says he is feeling slightly better than yesterday had some diuresis , denies any increased cough or sputum production , denies any chest pain or tightness . He says his pedal edema is getting better 08/19 Patient is sitting in chair feeling his shortness of breadth is lot better , but still has lot of pedal edema still has atrial fibrillation with episodes of RVR . 08/20 Patient lying in the bed said he is feels tired today shortness of breadth is still there on exertion denies any increased cough or sputum production , denies any hemoptysis 08/21 Patient had a good night sleep feeling lot better today Objective PUL Vital signs: Last Vital Signs Temp 97.7 F 08/21/17 06:53 Pulse 98 08/21/17 09:36 Resp 15 08/21/17 06:53 BP 124/70 08/21/17 09:36 Pulse Ox 94 08/21/17 06:53 Auscultation: bilateral: diminished breath sounds (basilar diminished breadth sounds ) Cardiovascular: irregular rhythm Extremities: edema Results - Laboratory Findings CBC and BMP: 08/21/17 01:27 08/21/17 01:27 PT/INR, D-dimer PT 11.1 Seconds (9.4-12.1) 08/10/17 15:42 Abnormal lab findings: Abnormal lab results WBC 13.5 K/mcL (4.3-11.1) H 08/21/17 01:27 Hgb 11.1 g/dL (12.9-16.9) L 08/21/17 01:27 Hct 34.3 % (37.5-50.1) L 08/21/17 01:27 MCV 76.9 fL (83.0-100.0) L 08/21/17 01:27 MCH 24.9 pg (28.0-33.3) L 08/21/17 01:27 RDW 16.7 % (11.5-14.5) H 08/21/17 01:27 Plt Count 117 K/mcL (140-400) L 08/21/17 01:27 Neutrophils # 12.6 K/mcL (1.6-8.9) H 08/21/17 01:27 Lymphocytes # 0.2 K/mcL (0.6-4.6) L 08/21/17 01:27 Hyposegmented Neuts Present (Not Present) A 08/17/17 06:31 Toxic Granulation Present (Not Present) A 08/17/17 06:31 Large Platelets Present (Not Present) A 08/17/17 06:31 Microcytosis Present (Not Present) A 08/17/17 06:31 APTT 22.5 Seconds (26.0-36.0) L 08/10/17 15:42 Sodium 133 mEq/L (136-145) L 08/21/17 01:27 Chloride 95 mEq/L (98-107) L 08/21/17 01:27 Carbon Dioxide 32 mEq/L (23-29) H 08/21/17 01:27 BUN 66 mg/dL (8-23) H 08/21/17 01:27 Creatinine 1.46 mg/dL (0.70-1.30) H 08/21/17 01:27 Est GFR ( Amer) 59 (> 60) L 08/21/17 01:27 Est GFR (Non-Af Amer) 48 (> 60) L 08/21/17 01:27 BUN/Creatinine Ratio 45 (6-26) H 08/21/17 01:27 Glucose 161 mg/dL (70-105) H 08/21/17 01:27 Phosphorus 2.5 mg/dL (2.7-4.5) L 08/15/17 05:51 Creatine Kinase 21 Units/L (30-223) L 08/13/17 05:15 Troponin I 0.06 ng/mL (< 0.04) H* 08/19/17 00:30 B-Natriuretic Peptide 905 pg/mL (Less than 100) H 08/11/17 00:31 Serum Total Protein 5.1 g/dL (6.4-8.9) L 08/11/17 00:31 Total Protein (PEP) 4.90 g/dL (6.00-8.30) L 08/13/17 05:15 Albumin 3.0 g/dL (3.5-5.7) L 08/11/17 00:31 Albumin (PEP) 2.62 g/dL (3.75-5.01) L 08/13/17 05:15 Globulin 2.1 g/dL (2.4-3.5) L 08/11/17 00:31 Procalcitonin 0.20 ng/mL (<=0.10) H 08/14/17 06:49 Urine Blood Large (Negative) H 08/20/17 13:20 Urine Microscopic RBC TNTC per hpf (0-3) H 08/20/17 13:20 Urine Microscopic WBC 5-15 per hpf (0-3) H 08/20/17 13:20 Vancomycin Trough 20.6 mcg/mL (10-20) H* 08/18/17 06:42 IgG 532 mg/dL (768-1632) L 08/13/17 05:15 IgG2 119 mg/dL (124-549) L 08/17/17 17:08 IgG4 <1 mg/dL (1-123) L 08/17/17 17:08 Mycoplasma pneumon IgG 0.33 U/L (<=0.09) H 08/14/17 06:49 - Clinical Findings Intake & Output: Intake & Output 08/20/17 08/21/17 08/21/17 22:59 07:59 15:59 Intake Total 720 / 720 Output Total Balance 720 / 720 Weight - VTE Documentation of Mechanical Device: Graduated compression elastic hosiery Consult Discharge Plan - Plan Referrals: Jenn Luna MD [Primary Care Provider] - 08/16/17 1:45 pm Prescriptions: Apixaban [Eliquis] 5 mg PO BID #60 tablet
--- NOTE | 2017-08-21 10:31 | Internal Med Progress Note ---
Date of Encounter: 08/21/17 Time of Encounter: 10:11 - Subjective Interval history: Interval changes: 08/18/2017 His rate had been controlled until later in the day when he developed AFib with RVR. He had associated SOB. A 15 mg bolus of cardizem was given and a Cardizem drip was started. He was not c/o cp. 08/19/2017: He was again weaned off the cardizem drip early today and by late evening became very tachycardic again. He is breathing more comfortably LE edema is worse than previously noted Trace of pink blood in Miles cath 08/20/2017: Yesterday Metoprolol-XL dose increased to 100 mg daily after episode of sustained A-Fib with RVR and rates in 150-160 range. Tachycardic again this am with rates in the 120-130 range. Cardiology asked to see him again and they added Cardizem-CD 120mg daily He was to have Miles catheter removed in Urology office this week so Urology called and they will remove it Tuesday. 08/21/2017: HR much better controlled and breathing more comfortably C/o being mildly dizzy after CCB added to BB LE slightly worse Compression hose -Assessment and plan (1) New onset a-fib Patient converted to sinus rhythm Rate controlled with Metoprolol earlier in the day He returned to Afib with RVR bit was rate controlled until yesterday. Metoprlol XL increased to 100 mg daily yesterday Cardizem-CD 120 mg daily plus Metoprolol XL 100 mg daily Continue Eliquis (2) Systolic heart failure WANG and Lasix held because of TOM (3) TOM (acute kidney injury) Nephrology consulted UO is improved (4) COPD exacerbation: Symbicort Duo Nebs Q4H SoluMedrol --> Prednisone (continue to deescalate dose) He will need taper at d/ C (5) Urinary retension: Dr. Calvo to remove this Tuesday Continue chronic Miles (6) RUL infiltrate Continue Vanc and Zosyn ---> now on only Zosyn (7) Elevated troponin I level Demand ischemia per cardiology (8) Anemia Stable hgb Continue to follow (9) Hyperkalemia: Resolved (10) Sarcoidosis and Silicosis Not on chronic steroid therapy at home WANG level wnl Cardiology going to set up cardiac MRI at [facility] per pt report (11) Lung nodule Per Pulmonary Medicine Note: "New Lung nodule which was found in july has decreased favors beingn etiology will get PET CT scan as there was few opacities in the middle of chronic scarring , non small cell ca can start from chronic scarring ." He has f /u with Pulm. Medicine. (12) DVT prophylaxis Currently on Eliquis - Constitutional Vitals: Temp Pulse Resp BP Pulse Ox 97.7 F 98 15 124/70 94 08/21/17 06:53 08/21/17 09:36 08/21/17 06:53 08/21/17 09:36 08/21/17 06:53 General appearance: Present: A&O X 3, pleasant, underweight, answers questions appropriately - Head Head exam: Present: atraumatic, normocephalic - Eye Eye exam: Present: PERRL, conjuntiva pink, sclera anicteric Pupils: Present: PERRL - Neck Neck exam general surgery: Present: supple, trachea midline. Absent: lymphadenopathy - Respiratory Respiratory exam: Present: CTAB. Absent: accessory muscle use, rhonchi, wheezes - Cardiovascular Cardiovascular exam: Present: RRR, +S1, +S2. Absent: diastolic murmur, gallop, rubs, systolic murmur - GI/Abdominal GI/Abdominal exam: Present: normal bowel sounds, soft, no peritoneal signs. Absent: distended, tenderness - Extremities Exam Extremities exam: Present: warm, radial pulses palpable and symmetrical. Absent : calf tenderness, cyanotic, pedal edema - Neurological Exam Neurological exam: Present: CN II-XII intact, oriented X3, no focal deficits. Absent: pronater drift, facial droop, speech deficit - Skin Skin exam: Present: dry, intact Internal Medicine: Result - Labs CBC & Chem 7: 08/21/17 01:27 08/21/17 01:27 Labs: Short CBC 08/21/17 Range/Units 01:27 WBC 13.5 H (4.3-11.1) K/mcL Hgb 11.1 L (12.9-16.9) g/dL Hct 34.3 L (37.5-50.1) % Plt Count 117 L (140-400) K/mcL Neutrophils # 12.6 H (1.6-8.9) K/mcL BMP 03/10/18 03/11/18 08:05 01:27 Sodium 135 L 133 L Potassium 3.8 4.0 Chloride 95 L 95 L Carbon Dioxide 35 H 32 H BUN 64 H 66 H Creatinine 1.47 H 1.46 H Glucose 139 H 161 H Calcium 8.5 L 8.6 Urine 08/20/17 Range/Units 13:20 Urine Color Yellow (Yellow) Urine Clarity Clear (Clear) Urine pH 6.0 (5.0-8.0) pH Units Ur Specific [place] 1.024 (1.010-1.025) Urine Protein Trace (Neg-Trace) mg/dL Urine Glucose (UA) Normal (Normal) mg/dL - ABG Interpretation ABG results: PT/INR, D-dimer PT 11.1 Seconds (9.4-12.1) 08/10/17 15:42 - VTE Documentation of Mechanical Device: Graduated compression elastic hosiery Consult Discharge Plan - Plan Referrals: Jenn Luna MD [Primary Care Provider] - 08/16/17 1:45 pm Prescriptions: Apixaban [Eliquis] 5 mg PO BID #60 tablet
[2017-08-21] MEDS: Melatonin 3 MG TABLET PO PRN (21:26)
[2017-08-22] MEDS: Piperacillin/Tazobactam 3.375 GM in 0.9 % Sodium Chloride Mini Bag 100 ML IVPB SCH ×2 (00:47→08:38)
[2017-08-22 02:26] LABS: Bilirubin,Urine Negative (Negative); Blood,Urine Large (Negative); Color,Urine Yellow (Yellow); Glucose,Urine (UA) Normal (Normal); Ketones,Urine Negative (Negative); Leukocyte Esterase,Urine Negative (Negative); Nitrite,Urine Negative (Negative); Protein,Urine 30 mg/dL (Neg-Trace); Specific Gravity,Urine 1.027 (1.010-1.025); Urobilinogen,Urine Normal (Normal)
[2017-08-22 02:28] LABS: Bacteria,Urine None Seen per hpf (None-Few); Hyaline Casts,Urine None Seen per lpf (None-Few); RBC,Urine TNTC per hpf (0-3); Squamous Epithelial Cell,Urine None Seen per lpf (None-Few)
[2017-08-22 02:30] LABS: Clarity,Urine Hazy (Clear)
[2017-08-22] MEDS: Ipratropium/Albuterol Neb 3 ML IH SCH ×6 (03:48→23:33)
[2017-08-22] MEDS: Acetaminophen 325 MG TABLET PO PRN (05:09)
[2017-08-22] MEDS: Budesonide/Formoterol 160/4.5 MDI IH SCH ×2 (07:35→19:41)
--- NOTE | 2017-08-22 08:28 | Internal Med Progress Note ---
Date of Encounter: 08/22/17 Time of Encounter: 08:00 - Subjective Interval history: Interval changes: 08/18/2017 His rate had been controlled until later in the day when he developed AFib with RVR. He had associated SOB. A 15 mg bolus of cardizem was given and a Cardizem drip was started. He was not c/o cp. 08/19/2017: He was again weaned off the cardizem drip early today and by late evening became very tachycardic again. He is breathing more comfortably LE edema is worse than previously noted Trace of pink blood in Miles cath 08/20/2017: Yesterday Metoprolol-XL dose increased to 100 mg daily after episode of sustained A-Fib with RVR and rates in 150-160 range. Tachycardic again this am with rates in the 120-130 range. Cardiology asked to see him again and they added Cardizem-CD 120mg daily He was to have Miles catheter removed in Urology office this week so Urology called and they will remove it Tuesday. 08/21/2017: HR much better controlled and breathing more comfortably C/o being mildly dizzy after CCB added to BB LE slightly worse Compression hose at night 08/22/2017: Breathing comfortably on 4 LNC Cough better c/o abdominal pain from coughing over weekend Dizziness resolved Urology to see today for Miles removal / voiding trial -Assessment and plan (1) New onset a-fib Patient converted to sinus rhythm Initially fate controlled with Metoprolol alone He returned to Afib with RVR over weekend Cardizem-CD 120 mg daily plus Metoprolol XL at higher dose (100 mg daily) Continue Eliquis (2) Systolic heart failure WANG and Lasix held because of TOM Cardiac MRI being coordinated by cardiology (concern for possible infiltrative process given hx of Sarcoidosis) (3) TOM (acute kidney injury) Nephrology consulted UO improved but minimally declined over weekend with increased diuresis ( continue to watch closely) (4) COPD exacerbation: Symbicort Duo Nebs Q4H SoluMedrol --> Prednisone (continue to deescalate dose) He will need taper at d/ C Prednisone 60 mg daily changed to 40 mg today Lungs sound clear (5) Urinary retension: Dr. Calvo to remove this Tuesday Continue chronic Miles (6) RUL infiltrate Vanc previously d/c'd and now on Zosyn (7th day today) WBC elevated (on steroids) but trending downward. Afebrile and lungs clear. 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 Medicine. (12) DVT prophylaxis Currently on Eliquis - Constitutional Vitals: Temp Pulse Resp BP Pulse Ox 97.9 F 100 17 123/80 97 08/22/17 07:21 08/22/17 07:21 08/22/17 07:35 08/22/17 07:21 08/22/17 07:35 General appearance: Present: A&O X 3, pleasant, underweight, answers questions appropriately - Head Head exam: Present: atraumatic, normocephalic - Eye Eye exam: Present: PERRL, conjuntiva pink, sclera anicteric Pupils: Present: PERRL - Neck Neck exam general surgery: Present: supple, trachea midline. Absent: lymphadenopathy - Respiratory Respiratory exam: Present: CTAB. Absent: accessory muscle use, rales, rhonchi, wheezes - Cardiovascular Cardiovascular exam: Present: RRR, +S1, +S2. Absent: diastolic murmur, gallop, rubs, systolic murmur - GI/Abdominal GI/Abdominal exam: Present: normal bowel sounds, soft, no peritoneal signs. Absent: distended, tenderness - Extremities Exam Extremities exam: Present: pedal edema, warm. Absent: calf tenderness, cyanotic Additional comments: 4+ bilateral pedal edema - Neurological Exam Neurological exam: Present: CN II-XII intact, oriented X3, no focal deficits. Absent: pronater drift, facial droop, speech deficit - Skin Skin exam: Present: dry, intact Internal Medicine: Result - Labs CBC & Chem 7: 08/21/17 01:27 08/21/17 01:27 Labs: Urine 08/22/17 Range/Units 02:14 Urine Color Yellow (Yellow) Urine Clarity Hazy (Clear) Urine pH 6.0 (5.0-8.0) pH Units Ur Specific [place] 1.027 H (1.010-1.025) Urine Protein 30 H (Neg-Trace) mg/dL Urine Glucose (UA) Normal (Normal) mg/dL - ABG Interpretation ABG results: PT/INR, D-dimer PT 11.1 Seconds (9.4-12.1) 08/10/17 15:42 - VTE Documentation of Mechanical Device: Intermittent pneumatic compression device Consult Discharge Plan - Plan Referrals: Jenn Luna MD [Primary Care Provider] - 08/16/17 1:45 pm Prescriptions: Apixaban [Eliquis] 5 mg PO BID #60 tablet
[2017-08-22] MEDS: Aspirin Enteric Coated 81 MG Tablet PO SCH (08:39)
[2017-08-22] MEDS: Apixaban 5 MG TABLET PO SCH ×2 (08:40→22:59)
[2017-08-22] MEDS: predniSONE 20 MG TABLET PO SCH (08:40)
[2017-08-22] MEDS: Metoprolol XL (24 HR) Succ 50 MG TAB.ER.24H PO SCH (08:40)
[2017-08-22] MEDS: Diltiazem CD (24hr) 120 MG CAPSULE PO SCH (08:40)
[2017-08-22 10:18] LABS: Basophils % 0.1 %; Eosinophils # 0.1 K/mcL (0.0-0.6); Eosinophils % 0.6 %; Hematocrit 36.1 % (37.5-50.1); Hemoglobin 11.5 g/dL (12.9-16.9); Immature Granulocytes % 0.3 % (0-4); Lymphocytes # 0.3 K/mcL (0.6-4.6); Lymphocytes % 2.5 %; Mean Corpuscular HGB Conc 31.9 g/dL (31.6-35.5); Mean Corpuscular Hemoglobin 24.9 pg (28.0-33.3); Mean Corpuscular Volume 78.3 fL (83.0-100.0); Mean Platelet Volume 10.2 fL (9.4-12.4); Monocytes # 0.4 K/mcL (0.0-1.3); Monocytes % 3.3 %; Neutrophils # 11.4 K/mcL (1.6-8.9); Platelet Count 115 K/mcL (140-400); Red Blood Count 4.61 M/mcL (4.19-5.50); Red Cell Distribution Width 17.2 % (11.5-14.5); Segmented Neutrophils % 93.2 %
[2017-08-22 10:35] LABS: Calcium 8.7 mg/dL (8.6-10.3); Potassium 3.6 mEq/L (3.5-5.1)
[2017-08-22] MEDS: Furosemide 20 MG/2 ML VIAL IVP SCH ×2 (11:37→18:00)
[2017-08-22 20:43] LABS: Hematocrit 36.5 % (37.5-50.1); Hemoglobin 11.4 g/dL (12.9-16.9); Immature Granulocytes % 0.6 % (0-4); Lymphocytes # 0.1 K/mcL (0.6-4.6); Lymphocytes % 1.2 %; Mean Corpuscular HGB Conc 31.2 g/dL (31.6-35.5); Mean Corpuscular Hemoglobin 24.7 pg (28.0-33.3); Monocytes # 0.3 K/mcL (0.0-1.3); Neutrophils # 8.7 K/mcL (1.6-8.9); Platelet Count 114 K/mcL (140-400); Red Blood Count 4.62 M/mcL (4.19-5.50); Red Cell Distribution Width 17.2 % (11.5-14.5); Segmented Neutrophils % 95.2 %
[2017-08-22 20:56] LABS: Calcium 8.6 mg/dL (8.6-10.3); Potassium 4.1 mEq/L (3.5-5.1)
[2017-08-22 21:14] LABS: Platelet Estimate Slight Decrease (Normal); Spherocytes 1+ (Not Present)
[2017-08-22] MEDS: Melatonin 3 MG TABLET PO PRN (22:59)
[2017-08-23] MEDS: Ipratropium/Albuterol Neb 3 ML IH SCH ×6 (04:21→23:32)
[2017-08-23] MEDS: Budesonide/Formoterol 160/4.5 MDI IH SCH ×2 (07:39→20:08)
[2017-08-23] MEDS: Aspirin Enteric Coated 81 MG Tablet PO SCH (08:51)
[2017-08-23] MEDS: predniSONE 20 MG TABLET PO SCH (08:51)
[2017-08-23] MEDS: Apixaban 5 MG TABLET PO SCH ×2 (08:51→22:39)
[2017-08-23] MEDS: Diltiazem CD (24hr) 120 MG CAPSULE PO SCH (08:52)
[2017-08-23] MEDS: Metoprolol XL (24 HR) Succ 50 MG TAB.ER.24H PO SCH (08:52)
[2017-08-23] MEDS: Furosemide 20 MG/2 ML VIAL IVP SCH (09:12)
[2017-08-23 10:01] LABS: Eosinophils # 0.2 K/mcL (0.0-0.6); Eosinophils % 1.8 %; Hematocrit 35.3 % (37.5-50.1); Hemoglobin 11.2 g/dL (12.9-16.9); Immature Granulocytes % 0.6 % (0-4); Lymphocytes # 0.4 K/mcL (0.6-4.6); Lymphocytes % 3.3 %; Mean Corpuscular HGB Conc 31.7 g/dL (31.6-35.5); Mean Corpuscular Volume 78.8 fL (83.0-100.0); Monocytes # 0.5 K/mcL (0.0-1.3); Monocytes % 4.2 %; Neutrophils # 11.3 K/mcL (1.6-8.9); Platelet Count 122 K/mcL (140-400); Red Blood Count 4.48 M/mcL (4.19-5.50); Red Cell Distribution Width 17.4 % (11.5-14.5); Segmented Neutrophils % 90.1 %
[2017-08-23 11:01] LABS: BUN/Creatinine Ratio 48 (6-26); Blood Urea Nitrogen 60 mg/dL (8-23); Calcium 8.6 mg/dL (8.6-10.3); Carbon Dioxide 34 mEq/L (23-29); Chloride 96 mEq/L (98-107); Glucose 119 mg/dL (70-105); Osmolality,Calculated 296 (280-300); Potassium 3.8 mEq/L (3.5-5.1); Sodium 134 mEq/L (136-145); eGFR For African Americans > 60 (> 60); eGFR For Non-African Americans 58 (> 60)
[2017-08-23] MEDS: Levofloxacin 750 MG/150 ML 750 MG/150 ML BAG IVPB SCH (11:31)
--- NOTE | 2017-08-23 12:13 | Pulmonology Progress Note ---
Date of Encounter: 08/23/17 Time of Encounter: 11:55 Assessment and Plan (1) Acute and chronic respiratory failure Current Visit: No Status: Acute Patient was evaluated and he is not in any acute distress at this time and he stated his breathing is better now. 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 I will still encourage diuresis and I will check also BNP level. I do not think patient has pulmonary embolism, however he is scheduled to have CT chest. Patient is on appropriate treatment for COPD and during examination there is no significant abnormal sounds to suggest this is COPD exacerbation. Qualifiers: Respiratory failure complication: hypoxia Qualified Code(s): J96.21 - Acute and chronic respiratory failure with hypoxia (2) Chronic silicosis Current Visit: No Status: Chronic (3) Cardiomyopathy Current Visit: No Status: Chronic Qualifiers: Cardiomyopathy type: unspecified Qualified Code(s): I42.9 - Cardiomyopathy , unspecified (4) COPD (chronic obstructive pulmonary disease) Current Visit: Yes Status: Chronic Qualifiers: COPD type: chronic bronchitis Chronic bronchitis type: mixed simple and mucopurulent Qualified Code(s): J41.8 - Mixed simple and mucopurulent chronic bronchitis Subjective Principal diagnosis: new onset afib, CHF Interval history: Patient stated he is feeling better now, however he had difficulty breathing last night and he continued to have leg swelling not responding well to diuresis Objective PUL Vital signs: Last Vital Signs Temp 97.1 F L 08/23/17 07:32 Pulse 109 08/23/17 10:00 Resp 18 08/23/17 11:06 BP 120/77 08/23/17 10:00 Pulse Ox 92 08/23/17 11:06 General appearance: no acute distress Eyes: nonicteric ENT: oropharynx moist Neck: supple Effort: mildly labored Auscultation: bilateral: diminished breath sounds Percussion: bilateral: not dull Cardiovascular: irregular rhythm Gastrointestinal: normoactive bowel sounds, non-distended Extremities: edema normal mental status, non-focal exam mood appropriate Results - Laboratory Findings CBC and BMP: 08/23/17 09:40 08/23/17 09:40 PT/INR, D-dimer PT 11.1 Seconds (9.4-12.1) 08/10/17 15:42 Abnormal lab findings: Abnormal lab results WBC 12.5 K/mcL (4.3-11.1) H 08/23/17 09:40 Hgb 11.2 g/dL (12.9-16.9) L 08/23/17 09:40 Hct 35.3 % (37.5-50.1) L 08/23/17 09:40 MCV 78.8 fL (83.0-100.0) L 08/23/17 09:40 MCH 25.0 pg (28.0-33.3) L 08/23/17 09:40 RDW 17.4 % (11.5-14.5) H 08/23/17 09:40 Plt Count 122 K/mcL (140-400) L 08/23/17 09:40 Neutrophils # 11.3 K/mcL (1.6-8.9) H 08/23/17 09:40 Lymphocytes # 0.4 K/mcL (0.6-4.6) L 08/23/17 09:40 Hyposegmented Neuts Present (Not Present) A 08/17/17 06:31 Toxic Granulation Present (Not Present) A 08/17/17 06:31 Platelet Estimate Slight Decrease (Normal) L 08/22/17 20:18 Large Platelets Present (Not Present) A 08/17/17 06:31 Microcytosis Present (Not Present) A 08/17/17 06:31 Spherocytes 1+ (Not Present) A 08/22/17 20:18 APTT 22.5 Seconds (26.0-36.0) L 08/10/17 15:42 Sodium 134 mEq/L (136-145) L 08/23/17 09:40 Chloride 96 mEq/L (98-107) L 08/23/17 09:40 Carbon Dioxide 34 mEq/L (23-29) H 08/23/17 09:40 BUN 60 mg/dL (8-23) H 08/23/17 09:40 Est GFR (Non-Af Amer) 58 (> 60) L 08/23/17 09:40 BUN/Creatinine Ratio 48 (6-26) H 08/23/17 09:40 Glucose 119 mg/dL (70-105) H 08/23/17 09:40 Phosphorus 2.5 mg/dL (2.7-4.5) L 08/15/17 05:51 Creatine Kinase 21 Units/L (30-223) L 08/13/17 05:15 Troponin I 0.06 ng/mL (< 0.04) H* 08/19/17 00:30 B-Natriuretic Peptide 905 pg/mL (Less than 100) H 08/11/17 00:31 Serum Total Protein 5.1 g/dL (6.4-8.9) L 08/11/17 00:31 Total Protein (PEP) 4.90 g/dL (6.00-8.30) L 08/13/17 05:15 Albumin 3.0 g/dL (3.5-5.7) L 08/11/17 00:31 Albumin (PEP) 2.62 g/dL (3.75-5.01) L 08/13/17 05:15 Globulin 2.1 g/dL (2.4-3.5) L 08/11/17 00:31 Procalcitonin 0.20 ng/mL (<=0.10) H 08/14/17 06:49 Ur Specific [place] 1.027 (1.010-1.025) H 08/22/17 02:14 Urine Protein 30 mg/dL (Neg-Trace) H 08/22/17 02:14 Urine Blood Large (Negative) H 08/22/17 02:14 Urine Microscopic RBC TNTC per hpf (0-3) H 08/22/17 02:14 Urine Microscopic WBC 3-5 per hpf (0-3) H 08/22/17 02:14 Vancomycin Trough 20.6 mcg/mL (10-20) H* 08/18/17 06:42 IgG 532 mg/dL (768-1632) L 08/13/17 05:15 IgG2 119 mg/dL (124-549) L 08/17/17 17:08 IgG4 <1 mg/dL (1-123) L 08/17/17 17:08 Mycoplasma pneumon IgG 0.33 U/L (<=0.09) H 08/14/17 06:49 - Diagnostic Findings Chest x-ray: report reviewed, image reviewed - Clinical Findings Intake & Output: Intake & Output 08/22/17 08/23/17 08/23/17 23:59 07:59 15:59 Intake Total 100 / 100 120 / 120 360 / 360 Output Total 350 / 350 650 / 650 900 / 900 Balance -250 / -250 -530 / -530 -540 / -540 Weight 73.5 kg - VTE Documentation of Mechanical Device: Graduated compression elastic hosiery Consult Discharge Plan - Plan Referrals: Jenn Luna MD [Primary Care Provider] - 08/16/17 1:45 pm Prescriptions: Apixaban [Eliquis] 5 mg PO BID #60 tablet
[2017-08-23] MEDS ORDERED: Furosemide 40 MG/4 ML VIAL IVP ONE (13:05)
[2017-08-23] MEDS: Furosemide 40 MG/4 ML VIAL IVP SCH (22:39)
--- NOTE | 2017-08-23 23:34 | Internal Med Progress Note ---
Date of Encounter: 08/23/17 Time of Encounter: 23:29 - Assessment and plan (1) Acute and chronic respiratory failure Current Visit: Yes Status: Acute Assessment and plan: Acute worsening overnight and this AM. On high flow NC up to 10 L, down to 4 L this evening. Reconsulted pulmonology; appreciate input. I spoke with sap specialist who thinks this is due to fluid overload. Will increase lasix IV to 40 mg BID. Will monitor renal status closely. CXR showed possible worsening of RLL infiltrate. Added levaquin. Low suspicion for PE according to pulmonlogy, so will hold on CT PE. He seems to be improving with diuresis with good UOP. Continue COPD exacerbation treatment as per below. Will monitor closely. Qualifiers: Respiratory failure complication: hypoxia Qualified Code(s): J96.21 - Acute and chronic respiratory failure with hypoxia (2) Chronic silicosis Current Visit: Yes Status: Chronic Assessment and plan: On steroids for AECOPD, but not on steroids at home. (3) COPD (chronic obstructive pulmonary disease) Current Visit: Yes Status: Chronic Assessment and plan: Continue Symbicort, Duo Nebs Q4H, albuterol nebs PRN, and prednisone 40 mg QD. Qualifiers: COPD type: chronic bronchitis Chronic bronchitis type: mixed simple and mucopurulent Qualified Code(s): J41.8 - Mixed simple and mucopurulent chronic bronchitis (4) Lung nodule Current Visit: Yes Status: Acute Assessment and plan: Per Pulmonary Medicine Note: "New Lung nodule which was found in july has decreased favors beingn etiology will get PET CT scan as there was few opacities in the middle of chronic scarring , non small cell ca can start from chronic scarring ." He has f /u with Pulm. Medicine. (5) New onset a-fib Current Visit: Yes Status: Acute Assessment and plan: Continue cardizem, metoprolol, and eliquis. (6) Systolic heart failure Current Visit: Yes Status: Acute Assessment and plan: Increased IV lasix as per above. Cardiac MRI as outpatient. Cardiology consulted; appreciate input. Qualifiers: Heart failure chronicity: acute on chronic Qualified Code(s): I50.23 - Acute on chronic systolic (congestive) heart failure (7) Urinary retention Current Visit: Yes Status: Acute Assessment and plan: Urology consulted; appreciate input. Scheduled for diaz removal and voiding trial today. (8) TOM (acute kidney injury) Current Visit: Yes Status: Resolved Assessment and plan: Resolved. Nephrology consulted; appreciate input. Will monitor closely due to increase in lasix. (9) DVT prophylaxis Current Visit: Yes Status: Acute Assessment and plan: Continue eliquis. (10) Elevated troponin I level Current Visit: No Status: Acute Assessment and plan: Cardiology consulted; appreciate input. Demand ischemia per cardiology. (11) Anemia Current Visit: No Status: Chronic Assessment and plan: Hgb stable. Continue to monitor. Qualifiers: Anemia type: iron deficiency Iron deficiency anemia type: unspecified iron deficiency Qualified Code(s): D50.9 - Iron deficiency anemia, unspecified (12) Sarcoidosis Current Visit: No Status: Chronic Assessment and plan: On steroids for AECOPD, but not on steroids at home. Cardiology setting up cardiac MRI as outpatient. - Time Spent With Patient Greater than 35 minutes - Subjective Interval history: Patient had some dyspnea and desaturation overnight. He was requiring high flow NC at 10-12 L this AM. He states that breathing is better this AM. No SOB on high flow NC. He denies fever or chills. He denies chest pain. He has worsening BLE edema over last few days. He has no new complaints. Patient's family, including daughter, visited this evening. They were disappointed that patient is not improving despite 2 weeks of treatment. I counselled them on patient not requiring higher level of care, but I would help facilitate transfer if they desire. I reconsulted pulmonology, who thinks his respiratory decompensation is likely due to fluid overload. Will increase diuretics, but will be careful given history of TOM with previous diuresis. He is down to 4 L high flow NC this evening. He is feeling much better. He has good UOP. Still has diaz in, even though urology supposed to remove and do voiding trial today. Patient and family amenable to trying diuresis tonight and discussing about possible transfer to [place]. Will readdress in AM. - Constitutional Vitals: Temp Pulse Resp BP Pulse Ox 97.7 F 103 16 132/77 94 08/23/17 19:00 08/23/17 19:00 08/23/17 20:09 08/23/17 19:00 08/23/17 20:09 General appearance: Present: mild distress, A&O X 3, pleasant, underweight, answers questions appropriately - Respiratory Respiratory exam: Present: CTAB. Absent: accessory muscle use, rales, rhonchi, wheezes Additional comments: Normal WOB - Cardiovascular Cardiovascular exam: Present: RRR, +S1, +S2. Absent: diastolic murmur, gallop, rubs, systolic murmur Additional comments: 2+ pitting BLE edema - GI/Abdominal GI/Abdominal exam: Present: normal bowel sounds, soft. Absent: distended, hepatomegaly, mass, splenomegaly, tenderness - Psychiatric Psychiatric exam: Present: normal affect, normal mood. Absent: anxious, depressed - Skin Skin exam: Present: dry, intact, warm. Absent: cyanosis, rash Internal Medicine: Result - Labs CBC & Chem 7: 08/23/17 09:40 08/23/17 09:40 Labs: Short CBC 08/23/17 Range/Units 09:40 WBC 12.5 H (4.3-11.1) K/mcL Hgb 11.2 L (12.9-16.9) g/dL Hct 35.3 L (37.5-50.1) % Plt Count 122 L (140-400) K/mcL Neutrophils # 11.3 H (1.6-8.9) K/mcL BMP 08/23/17 09:40 Sodium 134 L Potassium 3.8 Chloride 96 L Carbon Dioxide 34 H BUN 60 H Creatinine 1.25 Glucose 119 H Calcium 8.6 - ABG Interpretation ABG results: PT/INR, D-dimer PT 11.1 Seconds (9.4-12.1) 08/10/17 15:42 - Impressions Impressions Chest X-Ray 08/23/17 07:00 IMPRESSION: Unchanged appearance of the chest when correlated to CT from 1 week earlier with findings consistent with silicosis with persistent small pleural effusions right greater than left. The changes of silicosis have shown significant progression from remote study from 2008. The infiltrate in the right lower lung field laterally seen best on the frontal view has worsened/developed when correlated to chest radiograph from 08/01/2017. D/ / 08/23/2017 08:33:37 Des Traylor MD / tapan Interpreting Provider: Des Traylor MD - VTE Documentation of Mechanical Device: Graduated compression elastic hosiery Contraindication No Overlap Therapy: Admin of oral Factor Xa Inhibitor Consult Discharge Plan - Plan Referrals: Jenn Luna MD [Primary Care Provider] - 08/16/17 1:45 pm Prescriptions: Apixaban [Eliquis] 5 mg PO BID #60 tablet
[2017-08-24] MEDS: Melatonin 3 MG TABLET PO PRN (00:23)
[2017-08-24] MEDS: Ipratropium/Albuterol Neb 3 ML IH SCH ×6 (03:39→23:01)
[2017-08-24] MEDS: Furosemide 40 MG/4 ML VIAL IVP SCH ×2 (06:26→20:35)
[2017-08-24] MEDS: Budesonide/Formoterol 160/4.5 MDI IH SCH ×2 (07:39→20:36)
[2017-08-24] MEDS: Diltiazem CD (24hr) 120 MG CAPSULE PO SCH (09:29)
[2017-08-24] MEDS: Metoprolol XL (24 HR) Succ 50 MG TAB.ER.24H PO SCH (09:29)
[2017-08-24] MEDS: Aspirin Enteric Coated 81 MG Tablet PO SCH (09:29)
[2017-08-24] MEDS: predniSONE 20 MG TABLET PO SCH (09:29)
[2017-08-24] MEDS: Apixaban 5 MG TABLET PO SCH (09:29)
[2017-08-24 09:53] LABS: Basophils % 0.1 %; Eosinophils # 0.2 K/mcL (0.0-0.6); Eosinophils % 2.2 %; Hematocrit 36.7 % (37.5-50.1); Hemoglobin 11.8 g/dL (12.9-16.9); Immature Granulocytes % 0.7 % (0-4); Lymphocytes # 0.4 K/mcL (0.6-4.6); Lymphocytes % 4.2 %; Mean Corpuscular HGB Conc 32.2 g/dL (31.6-35.5); Mean Corpuscular Volume 77.8 fL (83.0-100.0); Mean Platelet Volume 9.5 fL (9.4-12.4); Monocytes # 0.5 K/mcL (0.0-1.3); Monocytes % 4.6 %; Neutrophils # 9.2 K/mcL (1.6-8.9); Platelet Count 135 K/mcL (140-400); Red Blood Count 4.72 M/mcL (4.19-5.50); Red Cell Distribution Width 17.8 % (11.5-14.5); Segmented Neutrophils % 88.2 %
[2017-08-24 10:09] LABS: BUN/Creatinine Ratio 45 (6-26); Blood Urea Nitrogen 60 mg/dL (8-23); Carbon Dioxide 31 mEq/L (23-29); Chloride 94 mEq/L (98-107); Glucose 147 mg/dL (70-105); Osmolality,Calculated 296 (280-300); Potassium 3.8 mEq/L (3.5-5.1); Sodium 133 mEq/L (136-145); eGFR For African Americans > 60 (> 60); eGFR For Non-African Americans 54 (> 60)
[2017-08-24] MEDS: Levofloxacin 750 MG/150 ML 750 MG/150 ML BAG IVPB SCH (13:40)
--- NOTE | 2017-08-24 17:44 | Discharge Summary ---
- NOTES TO OUTPATIENT PROVIDER Notes to Outpatient Provider: As determined by OSH at time of discharge. 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 (3) COPD (chronic obstructive pulmonary disease) Priority: Secondary Status: Chronic Qualifiers: COPD type: chronic bronchitis Chronic bronchitis type: mixed simple and mucopurulent Qualified Code(s): J41.8 - Mixed simple and mucopurulent chronic bronchitis (4) Lung nodule Priority: Secondary Status: Acute (5) New onset a-fib Priority: Secondary Status: Acute (6) Systolic heart failure Priority: Secondary Status: Acute Qualifiers: Heart failure chronicity: acute on chronic Qualified Code(s): I50.23 - Acute on chronic systolic (congestive) heart failure (7) Urinary retention Priority: Secondary Status: Resolved (8) TOM (acute kidney injury) Priority: Secondary Status: Resolved (9) DVT prophylaxis Priority: Secondary Status: Acute (10) Elevated troponin I level Priority: Secondary Status: Acute (11) Anemia Priority: Secondary Status: Chronic Qualifiers: Anemia type: iron deficiency Iron deficiency anemia type: unspecified iron deficiency Qualified Code(s): D50.9 - Iron deficiency anemia, unspecified (12) Sarcoidosis Priority: Secondary Status: Chronic Hospital course: Mr. Lowry is a 67 year old male admitted for new onset atrial fibrillation. He was admitted to general medical floor with telemetry. Cardiology was consulted. He was started on digoxin. Home metoprolol was continued and dose increased. He eventually converted to NSR with increased metoprolol. He was started on eliquis. He had some urinary retention upon admission and diaz was placed. Urology was consulted. He had likely COPD exacerbation, on top of chronic silicosis and sarcoidosis. He was started on steroids and nebulizer treatments. He has history of cardiomyopathy/CHF. He had elevated troponin; recent nuclear stress test performed the week prior showed no ischemia and EF of 45%. IV lasix was added due to fluid overload. Renal function worsened with diuresis, so nephrology was consulted. Lasix eventually stopped. Urology kept diaz in and started patient on flomax for urinary retention. He was given gentle IVF for TOM, with which renal function normalized. Respiratory status worsened, so he was started on levaquin for possible pneumonia after chest x-ray showed new RLL consolidation. Respiratory status not improving, so switched levaquin to vancomycin and zosyn. Pulmonology consulted and thought acute respiratory failure more likely due to acute on chronic CHF and fluid overload rather than COPD exacerbation. Steroids started to be tapered. He went back into atrial fibrillation with RVR, so started on cardizem drip. Diuresis started again, and later weaned. Cardiology recommending outpatient cardiac MRI to evaluate sarcoidosis. Respiratory status improving up until 3 days prior to discharge. Patient started requiring 10 L high flow NC. Pulmonology reconsulted and again hypothesized fluid overload. Aggressive diuresis restarted. Renal function relatively stable on day of discharge with creatinine at 1.33. Patient and his family frustrated that he has been here 2 weeks and not getting better. They are adamant about getting cardiac MRI and want to be transferred to higher level of care so that this can be done [facility] as inpatient. Patient and family want to go to [facility] in [place], [place], where cardiac MRI can be done inpatient per daughter's research. Patient has been weaned most recently to 7 L high flow NC. I have called hospitalist Dr. Coates at [facility], who has agreed to accept patient. Patient has met maximum benefit of hospitalization here and will be transferred to higher level of care at [facility] in [place], [place], in stable condition. Discharge discussed with: patient, family, nurse, case management, other ( Pharmacist) - Time Spent with Patient Total time spent providing and/or coordinating discharge services: Greater than 30 minutes - Discharge Medications Prescriptions: Apixaban [Eliquis] 5 mg PO BID #60 tablet Home Medications: Acetaminophen [Tylenol] 650 mg PO Q6HR PRN tablet 08/07/17 [Rx] Aspirin Enteric Coated [Aspirin EC] 81 mg PO DAILY tablet. 08/07/17 [Rx] Atorvastatin [Lipitor] 40 mg PO HS #30 tablet 08/07/17 [Rx] Budesonide/Formoterol 160/4.5 [Symbicort 160/4.5] 2 puff IH BIDR #1 inhaler [Rx] Ferrous Sulfate 325 mg PO DAILY@0800 #30 tablet 08/07/17 [Rx] Ipratropium/Albuterol Neb [Duoneb] 3 ml IH [id number] 30 Days #150 inhsol 08/07/17 [Rx] Levofloxacin [Levaquin] 750 mg PO DAILY #5 tablet 08/07/17 [Rx] Lisinopril [Zestril] 5 mg PO DAILY #30 tablet 08/07/17 [Rx] Melatonin 6 mg PO HS PRN #30 tablet 08/07/17 [Rx] Apixaban [Eliquis] 5 mg PO BID #60 tablet 08/15/17 [Rx] Albuterol Neb [Proventil Neb] 2.5 mg IH Q2H PRN inhsol 08/24/17 [Rx] Apixaban [Eliquis] 5 mg PO BID tablet 08/24/17 [Rx] Diltiazem CD (24hr) [Cardizem CD] 120 mg PO DAILY cap.er.24h 08/24/17 [Rx] Docusate [Colace] 100 mg PO BID PRN capsule 08/24/17 [Rx] Furosemide [Lasix] 40 mg IVP Q12H vial 08/24/17 [Rx] GuaiFENesin ER [Mucinex] 600 mg PO BID PRN tbbp.12hr 08/24/17 [Rx] Metoprolol XL (24 HR) Succ [Toprol Xl] 100 mg PO DAILY tab.er.24h 08/24/17 [Rx] Tamsulosin [Flomax] 0.4 mg PO DAILY capsule 08/24/17 [Rx] predniSONE [PredniSONE] 40 mg PO DAILY tablet 08/24/17 [Rx] Allergies/Adverse Reactions: 3 Allergy/AdvReac Type Severity Reaction Status Date / Time No Known Allergies Allergy Verified 07/29/17 12:54 Date of admission: 08/10/17 22:00 Primary care physician: Jenn Luna Consults: 08/10/17 23:08 Consult to Slat Pickler [CONS] Routine Reason for SW Consult: patient wears oxygen at home 08/11/17 15:13 consult to rock wool insulator [Consult to Nutrition] [CONS] Routine Comment: CHF diet 2L fluid restriction, Na restriction Consulting Provider: NUTRITION Reason for Dietary Consult: Diet Education 08/12/17 07:40 Consult to Nephrology [CONS] Routine Consulting Provider: Kidney Lucille/ALVARO/AMANDA/FARHAN Reason for Consult: tom Time Notified: 07:41 Call Completed: No 08/12/17 09:12 Consult to Physical Therapy [CONS] Routine Comment: Evaluate, develop and implement POC Reason for Consult: Weakness 08/12/17 13:25 Consult to Occupational Therapy [CONS] Routine Comment: Evaluate, develop and implement POC Reason for Consult: to supplement PT order placed by Carlos Pierre; will be needed per patient's insurance if going to rehab 08/16/17 15:29 Consult to Pulmonology [CONS] Routine Consulting Provider: Pulm Crit Care & Sleep Lucille Reason for Consult: SOB and CHRISTY with COPD exacervbation and HCAP superimposed on pulmonary fibrosis asso with sarcoidosis and silicosis Time Notified: 15:31 Call Completed: No 08/20/17 08:51 Consult to Cardiology [CONS] Routine Comment: Per Dr. Blanco Consulting Provider: Card[facility] [place] Reason for Consult: PAF RVR Call Completed: Yes Discharging clinician: Tone Zamora Anticipated date of discharge: 08/24/17 - Constitutional Vitals: Temp Pulse Resp BP Pulse Ox 97.1 F L 92 18 124/77 90 08/24/17 16:08 08/24/17 16:08 08/24/17 16:08 08/24/17 16:08 08/24/17 16:08 General appearance: Present: mild distress, A&O X 3, pleasant, underweight, answers questions appropriately - Respiratory Respiratory exam: Present: CTAB. Absent: accessory muscle use, rales, rhonchi, wheezes Additional comments: Mildly labored WOB - Cardiovascular Cardiovascular exam: Present: RRR, +S1, +S2. Absent: diastolic murmur, gallop, rubs, systolic murmur Additional comments: Significant 2+ pitting BLE, minimally improved from yesterday - GI/Abdominal GI/Abdominal exam: Present: normal bowel sounds, soft. Absent: distended, hepatomegaly, mass, splenomegaly, tenderness - Psychiatric Psychiatric exam: Present: normal affect, normal mood. Absent: anxious, depressed - Skin Skin exam: Present: dry, intact, warm. Absent: cyanosis, rash - Patient Status Disposition: Transfer Other Condition: Critical Overall status at discharge: patient is not back to baseline - Discharge Instructions Follow Up With: Jenn Luna MD [Primary Care Provider] - 08/16/17 1:45 pm Additional Instructions: Transfer to [facility] in [place], [place], for higher level of care. Accepted by hospitalist Dr. Coates. - Diet and Activity Activity: as per physical therapy, wear oxygen at all times Diet: other (Cardiac diet) - VTE Documentation of Mechanical Device: Graduated compression elastic hosiery Contraindication No Overlap Therapy: Admin of oral Factor Xa Inhibitor
--- NOTE | 2017-08-24 18:27 | Event Note ---
Date of Encounter: 08/24/17 Time of Encounter: 18:26 Patient being transferred to [place]. We will leave catheter in place rather than proceeding with voiding trial. Discussed with family. They are in agreement. Catheter can only stay in place for 30 days and would need to remove for exchange and this time period. Existing catheter was placed around August 11. Follow-up information provided if they desire evaluation in the future by [facility]
[2017-08-24 20:10] VITALS: BP 113/70
[2017-08-25] MEDS: Ipratropium/Albuterol Neb 3 ML IH SCH (03:45)
== END 2017-08-24 21:15 | disposition other institution (70) | DRG 308 ==
LOC: EMEROO 15:19 → 2NENU 15:19
PROVIDERS: ADMIT Internal Medicine Cardiovascular Disease; ATTEND Student in an Organized Health Care Education/Training Program